=== PATIENT | female | born 1930 | race Caucasian/White ===

== ENCOUNTER 2020-04-04 15:35 | Emergency (ER) | payer MEDICARE, OTHER ==
--- NOTE | 2020-04-04 16:39 | EDM.PDOC ---
ED HPI GENERAL MEDICAL PROBLEM - General Chief Complaint: Upper Extremity Injury/Pain Stated Complaint: fall Time Seen by Provider: 04/04/20 16:04 Source of Information: Reports: Patient History Limitations: Reports: No Limitations - History of Present Illness INITIAL COMMENTS - FREE TEXT/NARRATIVE: Patient fell at home/backwards. She and son think she hit a small table and pa rt of her recliner on her way to floor. No LOC. Able to get up with help of son. This happened around noon. Was up and moving around after the fall. Ambulated normally per son. Says she had increased discomfort right shoulder. Small bump back of head. Able to move arms while working in kitchen/preparing and eating midday meal. Afterwards she sat on couch. Later got up and walked to her bedroom to lay on the bed for awhile. Later she called for assistance from her son as she couldn't get out of bed by herself due to the discomfort in the right shoulder. History of previous injury to the same shoulder. Has been unable to raise that arm above her shoulder since that time. 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 Denies headache/vision change/facial pain. Able to open and close jaw. No dental injury. No specific neck pain complaint. Has pain and swelling in right shoulder area above clavicular line. Denies new pain in left arm/shoulder/lower extremities. No chest pain/palpitations/SOB/pleuritic pain No nausea/emesis/abdominal pain/bowel changes No changes. No change in speech/alertness. No focal weakness or other neuro changes reported. - Related Data Allergies Allergy/AdvReac Type Severity Reaction Status Date / Time No Known Allergies Allergy Verified 04/04/20 15:37 Home Meds: Home Meds Insulin Aspart [Novolog Flexpen] 10 units SUBCUT TID 08/03/16 [History] Insulin Detemir [Levemir] 20 unit SUBCUT BEDTIME 08/03/16 [History] Acetaminophen [Tylenol Arthritis] 1 tab PO BID 04/04/20 [History] Aspirin [Halfprin] 1 tab PO DAILY 04/04/20 [History] Cholecalciferol (Vitamin D3) [Vitamin D3] 1 cap PO DAILY 04/04/20 [History] Docusate Sodium [Colace] 1 cap PO DAILY 04/04/20 [History] FLUoxetine HCl [Prozac] 1 cap PO DAILY 04/04/20 [History] Fenofibrate Nanocrystallized [Fenofibrate] 1 tab PO DAILY 04/04/20 [History] Multivitamin 1 tab PO DAILY 04/04/20 [History] Nitroglycerin 1 tab SL ASDIRECTED 04/04/20 [History] Omeprazole 1 tab PO DAILY 04/04/20 [History] Propranolol [Inderal LA] 1 cap PO DAILY 04/04/20 [History] Vit A/Vit C/Vit E/Zinc/Copper [Preservision] 1 tab PO BID 04/04/20 [History] hydroCHLOROthiazide [Hydrochlorothiazide] 1 tab PO DAILY 04/04/20 [History] lisinopriL [Lisinopril] 1 tab PO BID 04/04/20 [History] Past Medical History HEENT History: Reports: Cataract, Impaired Vision Other HEENT History: Wears glassess Cardiovascular History: Reports: Heart Murmur, Other (See Below) Other Cardiovascular History: NEYMAR valve Gastrointestinal History: Reports: Cholelithiasis, GERD Genitourinary History: Reports: Urinary Incontinence 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: Musculoskeletal History: Reports: Arthritis, Back Pain, Chronic, Osteoporosis Endocrine/Metabolic History: Reports: IDDM - Past Surgical History HEENT Surgical History: Reports: Cataract Surgery Cardiovascular Surgical History: Reports: Coronary Artery Stent, Valve Replacement GI Surgical History: Reports: Appendectomy, Cholecystectomy Musculoskeletal Surgical History: Reports: Hip Replacement, Knee Replacement Social & Family History - Caffeine Use Caffeine Use: Reports: Coffee Review of Systems - Review of Systems Review Of Systems: See Below Constitutional: Reports: No Symptoms Eyes: Denies: Pain, Vision Change Ears: Reports: No Symptoms Nose: Reports: No Symptoms Mouth/Throat: Reports: No Symptoms Respiratory: Reports: No Symptoms Cardiovascular: Reports: No Symptoms. Denies: Chest Pain GI/Abdominal: Reports: No Symptoms Genitourinary: Reports: No Symptoms Musculoskeletal: Reports: Shoulder Pain Skin: Reports: Bruising (right clavicular area), Lumps (back of head/small) Neurological: Reports: No Symptoms (no acute changes from baseline) Psychiatric: Reports: No Symptoms ED EXAM, GENERAL - Physical Exam Exam: See Below Exam Limited By: No Limitations General Appearance: Alert, No Apparent Distress, Obese Eye Exam: Bilateral Eye: EOMI, PERRL Ears: Normal External Exam, Normal Canal, Hearing Grossly Normal Nose: No: Nasal Deformity, Nasal Swelling, Nasal Drainage Throat/Mouth: Normal Lips, Normal Voice, No Airway Compromise Head: Other (small bump back of head). No: Facial Swelling, Facial Tenderness, Sinus Tenderness Neck: Normal Inspection, Supple, Non-Tender, Full Range of Motion Respiratory/Chest: No Respiratory Distress, Lungs Clear, No Accessory Muscle U se, Other (tenderness around clavicle/above clavicle on right) Cardiovascular: Regular Rate, Rhythm, No Murmur GI/Abdominal: Normal Bowel Sounds, Soft, Non-Tender, No Distention (Female) Exam: Deferred Rectal (Female) Exam: Deferred Back Exam: No: CVA Tenderness (L), CVA Tenderness (R), Muscle Spasm, Paraspinal Tenderness, Vertebral Tenderness Extremities: Non-Tender, Normal Capillary Refill, Other (Has some chronic pain limitation with ROM left leg, unable to lift it more than one foot above bed. Able to go through ROM with upper extremities fairly well with anterior and lateral arm raises. ) Neurological: Alert, Oriented, CN II-XII Intact, Normal Cognition, Other (no sensory deficits noted. ) Psychiatric: Normal Affect, Normal Mood Skin Exam: Warm, Dry, Ecchymosis (right clavicular area) Course - Vital Signs Last Recorded V/S: Last Vital Signs Temp 36.9 C 04/04/20 15:44 Pulse 74 04/04/20 15:44 Resp 21 H 04/04/20 15:44 BP 190/60 H 04/04/20 15:44 Pulse Ox 99 04/04/20 15:44 - Orders/Labs/Meds Orders: Active Orders 24 hr Category Date Time Status Cervical Spine wo Cont [CT] Stat Exams 04/04/20 15:50 Taken Head wo Cont [CT] Stat Exams 04/04/20 15:50 Ordered Shoulder Comp Rt [CR] Stat Exams 04/04/20 15:42 Taken Shoulder wo Cont Rt [CT] Stat Exams 04/04/20 16:31 Ordered - Re-Assessments/Exams Free Text/Narrative Re-Assessment/Exam: 04/04/20 17:41 Given patient's age and fall history/hitting furniture with her head and shoulder, CT of head and neck ordered. Patient has history of significant arthritis and CT of neck was felt to be better imaging modality than plain film given the amount of degenerative changes suspected. Plan film of shoulder also ordered. 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 C-spine CT report noted significant multi-level degenerative changes but no acute fracture/injury. Plain film of right shoulder was difficult to assess due to osteoporosis and degenerative changes from previous injury. No obvious fracture noted involving shoulder/fracture. Given the bruising and amount of discomfort pt was having, a CT of the shoulder was ordered to give a better look at the area. A mildly displaced fracture of medial clavicle was identified. They noted she had an abnormal proximal right humerus with multiple adjacent joint bodies/post traumatic changes. Patient was given a sling for comfort. Pain medication was discussed. Son is concerned about using any narcotic medication due to increased fall risk. She does take an arthritis medication TID and will try to use that along with the sling/ice. A single tramadol was given in the ER. If she seems to do well with that and wants additional pain control they can follow up with patients PCP tomorrow. BP improved over time as it was quite elevated upon arrival. Suspect due to pain, son says patient's BP has usually been in good range on her current HTN regimen. Precautions reviewed. To follow up as needed at ER PRN worse and with PCP for ongoing concerns and care. Departure - Departure Time of Disposition: 17:51 Disposition: Home, Self-Care 01 Condition: Good Clinical Impression: Fracture of clavicle Qualifiers: Encounter type: initial encounter Clavicle location: sternal end Fracture type: closed Fracture alignment: nondisplaced Laterality: right Qualified Code(s): S42.017A - Nondisplaced fracture of sternal end of right clavicle, initial encounter for closed fracture Fall at home Qualifiers: Encounter type: initial encounter Qualified Code(s): W19.XXXA - Unspecified fall, initial encounter; Y92.009 - Unspecified place in unspecified non- institutional (private) residence as the place of occurrence of the external cause Head contusion Qualifiers: Encounter type: initial encounter Contusion of head detail: scalp Qualified Code(s): S00.03XA - Contusion of scalp, initial encounter - Discharge Information *PRESCRIPTION DRUG MONITORING PROGRAM REVIEWED*: Not Applicable *COPY OF PRESCRIPTION DRUG MONITORING REPORT IN PATIENT CHEN: Not Applicable Instructions: Clavicle Fracture, [id number] Referrals: Millicent Howard NP [Primary Care Provider] - Forms: ED Department Discharge Additional Instructions: Follow up with your clinic if the Tramadol seems to help/does not have a lot of side effects and you want something stronger for pain issues. Wear sling for comfort. Follow up with your clinic to get rechecked next week. Follow up in ER if you have sudden worsening problems/concerns/changes. Sepsis Event Note (ED) - Evaluation Sepsis Screening Result: No Definite Risk - Focused Exam Vital Signs: Vital Signs Temp Pulse Resp BP Pulse Ox 04/04/20 15:44 36.9 C 74 21 H 190/60 H 99 - My Orders Last 24 Hours: My Active Orders 04/04/20 15:42 Shoulder Comp Rt [CR] Stat 04/04/20 15:50 Cervical Spine wo Cont [CT] Stat Head wo Cont [CT] Stat 04/04/20 16:31 Shoulder wo Cont Rt [CT] Stat - Assessment/Plan Last 24 Hours: My Active Orders 04/04/20 15:42 Shoulder Comp Rt [CR] Stat 04/04/20 15:50 Cervical Spine wo Cont [CT] Stat Head wo Cont [CT] Stat 04/04/20 16:31 Shoulder wo Cont Rt [CT] Stat
[2020-04-04] MEDS: traMADol 50 MG Tab PO ONE (17:47)
[2020-04-04 18:24] VITALS: BP 167/45; PULSE 62
== END 2020-04-04 18:03 | disposition home or self-care (01) ==
LOC: LL.ED 15:35
DX: S42.017A Nondisplaced fracture of sternal end of right clavicle, initial encounter for closed fracture (principal); S00.03XA Contusion of scalp, initial encounter; K21.9 Gastro-esophageal reflux disease without esophagitis; E11.9 Type 2 diabetes mellitus without complications; E66.9 Obesity, unspecified; Z79.4 Long term (current) use of insulin; Z79.82 Long term (current) use of aspirin; Z90.49 Acquired absence of other specified parts of digestive tract; Z79.899 Other long term (current) drug therapy; W01.198A Fall on same level from slipping, tripping and stumbling with subsequent striking against other object, initial encounter
CPT/HCPCS: 70450; 72125; 73030-RT; 73200-RT; 99284-25; A9270-GY

== ENCOUNTER 2020-09-20 12:17 | Inpatient (IN) | payer MEDICARE, OTHER ==
[2020-09-20] MEDS ORDERED: oxyCODONE 5 MG Tab PO PRN (16:12)
[2020-09-20] MEDS ORDERED: Nitroglycerin 0.4 MG Tab.SL SL PRN (16:15)
--- NOTE | 2020-09-20 16:22 | PCM.HP.2 ---
H&P History of Present Illness - General Date of Service: 09/20/20 Admit Problem/Dx: Admission Diagnosis/Problem Admission Diagnosis/Problem History of arthroplasty of left hip Source of Information: Patient, Family, Old Records History Limitations: Reports: Other (Patient has some mild/moderate cognitive impairment.) - History of Present Illness Initial Comments - Free Text/Narative: Patient admitted to [facility] for PT/OT. Transferred from [facility] after undergoing left total hip revision surgery. - Related Data Allergies/Adverse Reactions: Allergies Allergy/AdvReac Type Severity Reaction Status Date / Time [id number] Reductase Allergy Cannot Verified 09/20/20 13:15 Inhibitor Remember Home Medications: Home Meds Insulin Aspart [Novolog Flexpen] 10 units SUBCUT TID 08/03/16 [History] Insulin Detemir [Levemir] 20 unit SUBCUT BEDTIME 08/03/16 [History] Acetaminophen [Tylenol Arthritis] 1 tab PO Q6H PRN 04/04/20 [History] Cholecalciferol (Vitamin D3) [Vitamin D3] 1 cap PO DAILY 04/04/20 [History] FLUoxetine HCl [Prozac] 1 cap PO DAILY 04/04/20 [History] Fenofibrate Nanocrystallized [Fenofibrate] 1 tab PO BEDTIME 04/04/20 [History] Nitroglycerin 1 tab SL ASDIRECTED 04/04/20 [History] Omeprazole 1 tab PO DAILY 04/04/20 [History] Propranolol [Inderal LA] 1 cap PO DAILY 04/04/20 [History] hydroCHLOROthiazide [Hydrochlorothiazide] 1 tab PO DAILY 04/04/20 [History] lisinopriL [Lisinopril] 2 tab PO DAILY 04/04/20 [History] Aspirin 81 mg PO BID 09/20/20 [History] Cyanocobalamin (Vitamin B-12) [Vitamin B-12] 100 mcg PO DAILY 09/20/20 [History] Lutein/Minerals/Vit A,C & E [Ocuvite] 1 tab PO DAILY 09/20/20 [History] Multivit-Min/FA/Lycopene/Lut [Abc Plus Tablet] 1 each PO DAILY 09/20/20 [History] Oxybutynin Chloride [Ditropan Xl] 10 mg PO DAILY 09/20/20 [History] Sennosides/Docusate Sodium [Senna-Docusate Sodium Tablet] 2 each PO DAILY 09/20/20 [History] oxyCODONE 5 mg PO Q3H PRN 09/20/20 [History] Past Medical History HEENT History: Reports: Cataract, Impaired Vision Other HEENT History: Wears glassess Cardiovascular History: Reports: CAD (LAD stent 2016), Heart Murmur, 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), Hypertension, Other (See Below) Other Cardiovascular History: NEYMAR valve Gastrointestinal History: Reports: Cholelithiasis, GERD Genitourinary History: Reports: Retention, Urinary, Urinary Incontinence 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: Musculoskeletal History: Reports: Arthritis, Back Pain, Chronic, Osteoporosis Psychiatric History: Reports: Dementia Endocrine/Metabolic History: Reports: IDDM Hematologic History: Reports: Anemia - Past Surgical History HEENT Surgical History: Reports: Cataract Surgery Cardiovascular Surgical History: Reports: Coronary Artery Stent, Valve Replacement GI Surgical History: Reports: Appendectomy, Cholecystectomy Musculoskeletal Surgical History: Reports: Hip Replacement, Knee Replacement Social & Family History - Caffeine Use Caffeine Use: Reports: Coffee H&P Review of Systems - Review of Systems: Review Of Systems: See Below General: Reports: No Symptoms HEENT: Reports: Glasses, Other (Still has scratchy dry throat from intubation per self report) Pulmonary: Reports: No Symptoms Cardiovascular: Reports: No Symptoms Gastrointestinal: Reports: No Symptoms Genitourinary: Reports: Incontinence, Retention (by history) Musculoskeletal: Reports: Other (recent left hip revision/pain is improving since procedure 4 days ago. No acute changes from baseline otherwise) Psychiatric: Reports: Confusion Neurological: Reports: Confusion (patient is aware that she becomes confused), Difficulty Walking (recent left hip surgery) Hematologic/Lymphatic: Reports: Anemia (blood loss from recent surgery) Exam - Exam Exam: See Below - Vital Signs Vital Signs: Last Vital Signs Temp 36.7 C 09/20/20 15:01 Pulse 70 09/20/20 15:01 Resp 20 09/20/20 15:01 BP 145/55 H 09/20/20 15:01 Pulse Ox 96 09/20/20 15:01 Weight: 74.208 kg - Exam General: Alert, Oriented, Cooperative HEENT: Conjunctiva Clear, EACs Clear, EOMI, Hearing Intact, Mucosa Moist & [place], Pupils Equal, Pupils Reactive Neck: Supple, Trachea Midline Lungs: Clear to Auscultation, Normal Respiratory Effort Cardiovascular: Regular Rate, Regular Rhythm GI/Abdominal Exam: Normal Bowel Sounds, Soft, Non-Tender, No Distention, No Abnormal Bruit (Female) Exam: Deferred Rectal (Female) Exam: Deferred Back Exam: No: CVA Tenderness (L), CVA Tenderness (R), Muscle Spasm Extremities: Non-Tender, No Pedal Edema, Normal Capillary Refill, Other (some swelling noted left hip/thigh). No: Kourtney's Sign Peripheral Pulses: 2+: Radial (L), Radial (R) Skin: Warm, Dry, Incision (healing incision from left hip surgery) Psychiatric: Alert, Normal Affect, Normal Mood, Other (Knows she is in [place], that she had the recent surgery, that it is 2020, and that [place] is president.). No: Hallucinations Sepsis Event Note - Evaluation Sepsis Screening Result: No Definite Risk - Focused Exam Vital Signs: Vital Signs Temp Pulse Resp BP Pulse Ox 09/20/20 15:01 36.7 C 70 20 145/55 H 96 - Problem List (1) S/P total hip arthroplasty SNOMED Code(s): 064651086051, 419326944892 ICD Code: Z96.649 - PRESENCE OF UNSPECIFIED ARTIFICIAL HIP JOINT Status: Acute Priority: High Current Visit: Yes Onset Date: 09/16/20 Problem Details: Revision of left hip arthroplasty performed at [facility] in [place]. Doing well. Here for PT/OT (2) Cognitive impairment SNOMED Code(s): 731997598 ICD Code: R41.89 - OTH SYMPTOMS AND SIGNS W COGNITIVE FUNCTIONS AND AWARENESS Status: Chronic Priority: Medium Current Visit: Yes Problem Details: Recent worsening s/p surgery/anesthesia/hospital stay. Cognitive testing reqested for next week. Lives at home with son. He reports that she has been having issues for a few years and has noticed worsening. (3) Comfort measures only status SNOMED Code(s): 13169774640325 ICD Code: Z51.5 - ENCOUNTER FOR PALLIATIVE CARE Status: Chronic Priority: High Current Visit: No Problem Details: Patient and son in agreement today for DNR/DNI code status. (4) IDDM (insulin dependent diabetes mellitus) SNOMED Code(s): 74489780 ICD Code: [id number] - Status: Chronic Priority: Low Current Visit: Yes Problem Details: Accuchecks/observe trends (5) CAD (coronary artery disease) SNOMED Code(s): 20879859 ICD Code: I25.10 - ATHSCL HEART DISEASE OF [place] CORONARY ARTERY W/O ANG PCTRS Status: Chronic Priority: Low Current Visit: No Problem Details: Hx LAD stent 2017. Has been stable Qualifiers: Coronary Disease-Associated Artery/Lesion type: unspecified vessel or lesion type [place] vs. transplanted heart: [place] heart Associated angina: angina presence unspecified Qualified Code(s): I25.10 - Atherosclerotic heart disease of [place] coronary artery without angina pectoris (6) HTN (hypertension) SNOMED Code(s): 21378759 ICD Code: I10 - ESSENTIAL (PRIMARY) HYPERTENSION Status: Chronic Priority: Low Current Visit: Yes Problem Details: has been stable. Observe trends Qualifiers: Hypertension type: essential hypertension Qualified Code(s): I10 - Essential (primary) hypertension (7) GERD (gastroesophageal reflux disease) SNOMED Code(s): 350993937 ICD Code: K21.9 - GASTRO-ESOPHAGEAL REFLUX DISEASE WITHOUT ESOPHAGITIS Status: Chronic Priority: Low Current Visit: No Problem Details: Has been stable Qualifiers: Esophagitis presence: esophagitis presence not specified Qualified Code(s): K21.9 - Gastro-esophageal reflux disease without esophagitis (8) Urinary retention SNOMED Code(s): 635240479 ICD Code: R33.9 - RETENTION OF URINE, UNSPECIFIED Status: Chronic Priority: Low Current Visit: No Problem Details: Hx of problems with retention/incontinence. Has been stable per history. (9) Anemia SNOMED Code(s): 459292615 ICD Code: D64.9 - ANEMIA, UNSPECIFIED Status: Acute Priority: Medium Current Visit: Yes Problem Details: attributed to blood loss associated with hip surgery. Received transfusion yesterday. Recheck labs Wednesday morning. Qualifiers: Anemia type: other cause (10) Congestive heart failure (CHF) SNOMED Code(s): 46905587 ICD Code: I50.9 - HEART FAILURE, UNSPECIFIED Status: Acute Priority: Low Current Visit: No Problem Details: has been stable. History of valve replacement/aortic stenosis Qualifiers: Heart failure type: unspecified Heart failure chronicity: unspecified Qualified Code(s): I50.9 - Heart failure, unspecified Problem List Initiated/Reviewed/Updated: Yes Orders Last 24hrs: Active Orders 24 hr Category Date Time Status Patient Status [ADT] Routine ADT 09/20/20 16:06 Ordered Accu Check [Blood Glucose Check, Bedside] [RC] Care 09/20/20 16:14 Ordered QIDACANDBED Height and Weight [RC] UPON Care 09/20/20 16:06 Ordered Oxygen Therapy [RC] PRN Care 09/20/20 16:06 Ordered Pulse Oximetry [RC] PRN Care 09/20/20 16:10 Ordered Up With Assistance [RC] ASDIRECTED Care 09/20/20 16:06 Ordered VTE/DVT Education [RC] PER UNIT ROUTINE Care 09/20/20 16:06 Ordered Vital Signs [RC] Q4H Care 09/20/20 16:06 Ordered Consult to Case Management/Direct Service Provider [CONS] Cons 09/20/20 16:06 Ordered Routine OT Evaluation and Treatment [CONS] Routine Cons 09/20/20 16:06 Ordered PT Evaluation and Treatment [CONS] Routine Cons 09/20/20 16:06 Ordered CBC WITH AUTO DIFF [HEME] AM Lab 09/23/20 05:15 Ordered COMPREHENSIVE METABOLIC PN,CMP [CHEM] AM Lab 09/23/20 05:11 Ordered Acetaminophen [Tylenol Arthritis Pain] Med 09/20/20 16:12 Ordered 650 mg PO Q6H PRN Aspirin Med 09/20/20 18:00 Ordered 81 mg PO BID Cholecalciferol (Vitamin D3) [Vitamin D3] Med 09/21/20 08:00 Ordered 1 cap PO DAILY Cyanocobalamin (Vitamin B12) [Vitamin B12] Med 09/21/20 08:00 Ordered 100 mcg PO DAILY Docusate Sodium/Sennosides [Senna Plus] Med 09/21/20 08:00 Ordered 2 each PO DAILY FLUoxetine [PROzac] Med 09/21/20 08:00 Ordered 1 cap PO DAILY Fenofibrate Nanocrystallized [Fenofibrate] Med 09/20/20 20:00 Ordered 1 tab PO BEDTIME Insulin Aspart [Novolog Flexpen] Med 09/20/20 18:00 Ordered 10 units SUBCUT TID Insulin Detemir Med 09/20/20 20:00 Ordered 20 unit SUBCUT BEDTIME Lutein/Minerals/Vit A,C & E [Ocuvite] Med 09/21/20 08:00 Ordered 1 tab PO DAILY Multivit-Min/FA/Lycopene/Lut [Abc Plus Tablet] Med 09/21/20 08:00 Ordered 1 each PO DAILY Nitroglycerin [Nitrostat] Med 09/20/20 16:15 Ordered 0.4 mg SL ASDIRECTED Omeprazole [Omeprazole] Med 09/21/20 08:00 Ordered 1 tab PO DAILY Oxybutynin Chloride [Ditropan Xl] Med 09/21/20 08:00 Ordered 10 mg PO DAILY Propranolol [Inderal LA] Med 09/21/20 08:00 Ordered 1 cap PO DAILY hydroCHLOROthiazide Med 09/21/20 08:00 Ordered 25 mg PO DAILY lisinopriL [Prinivil] Med 09/21/20 08:00 Ordered 40 mg PO DAILY oxyCODONE Med 09/20/20 16:12 Ordered 5 mg PO Q3H PRN Resuscitation Status Routine Resus Stat 09/20/20 16:06 Ordered Medication Orders Acetaminophen (Tylenol Arthritis Pain) 650 mg PO Q6H PRN PRN Reason: Pain Aspirin (Aspirin) 81 mg PO BID [facility] Cyanocobalamin (Vitamin B12) 100 mcg PO DAILY [facility] Fluoxetine HCl (Prozac) mg PO DAILY [facility] Hydrochlorothiazide (Hydrochlorothiazide) 25 mg PO DAILY [facility] Lisinopril (Prinivil) 40 mg PO DAILY [facility] Nitroglycerin (Nitrostat) 0.4 mg SL ASDIRECTED [facility] Non-Formulary Medication (Cholecalciferol (Vitamin D3) [Vitamin D3]) 1 cap PO DAILY [facility] Non-Formulary Medication (Fenofibrate Nanocrystallized [Fenofibrate]) 1 tab PO BEDTIME [facility] Non-Formulary Medication (Insulin Aspart [Novolog Flexpen]) 10 units SUBCUT TID [facility] Non-Formulary Medication (Insulin Detemir) 20 unit SUBCUT BEDTIME [facility] Non-Formulary Medication (Lutein/Minerals/Vit A,C & E [Ocuvite]) 1 tab PO DAILY [facility] Non-Formulary Medication (Multivit-Min/Fa/Lycopene/Lut [Abc Plus Tablet]) 1 each PO DAILY [facility] Non-Formulary Medication (Omeprazole [Omeprazole]) 1 tab PO DAILY [facility] Non-Formulary Medication (Oxybutynin Chloride [Ditropan Xl]) 10 mg PO DAILY [facility] Oxycodone HCl (Oxycodone) 5 mg PO Q3H PRN PRN Reason: Pain Propranolol HCl (Inderal La) mg PO DAILY HERBERT Senna/Docusate Sodium (Senna Plus) tab PO DAILY [facility] Assessment/Plan Comment:: as above. PT/OT did initial evaluation of patient today and feels that overall she is doing well. May need as little as 2-3 weeks stay on Swing [facility]. Main concern is that she be able to climb 9 steps to get into her home once discharged. - Mortality Measure Prognosis:: Good
[2020-09-20] MEDS: Aspirin 81 MG Tab.Chew PO SCH (17:43)
[2020-09-20] MEDS ORDERED: Insulin Lispro 100 Units/ML 3 ML Vial SUBCUT SCH (18:00)
[2020-09-20] MEDS ORDERED: Aspirin 81 MG Tab.Chew PO SCH (18:00)
[2020-09-20] MEDS: NOVOLOG INSULIN SUBCUT SCH (18:18)
[2020-09-20] MEDS ORDERED: Insulin Glarg,Human.Rec.Analog 100 Unit/ML SUBCUT SCH (20:00)
[2020-09-20] MEDS: Fenofibrate,Micronized 134 MG Cap PO SCH (20:23)
[2020-09-20] MEDS: LEVEMIR INSULIN SUBCUT SCH (20:24)
[2020-09-20] MEDS: Acetaminophen 650 MG Tab.ER PO PRN (20:37)
[2020-09-21] MEDS: Acetaminophen 650 MG Tab.ER PO PRN ×2 (05:12→20:23)
[2020-09-21] MEDS: Oxybutynin 5 MG Tab.ER PO SCH (07:39)
[2020-09-21] MEDS: Multivitamin Tab PO SCH (07:39)
[2020-09-21] MEDS: Hydrochlorothiazide 25 MG Tab PO SCH (07:40)
[2020-09-21] MEDS: Aspirin 81 MG Tab.Chew PO SCH ×2 (07:40→17:09)
[2020-09-21] MEDS: Propranolol 80 MG Cap.ER PO SCH (07:40)
[2020-09-21] MEDS: Omeprazole 20 MG Cap.CR PO SCH (07:40)
[2020-09-21] MEDS: FLUoxetine 20 MG Cap PO SCH (07:40)
[2020-09-21] MEDS: Lisinopril 20 MG Tab PO SCH (07:40)
[2020-09-21] MEDS: Cyanocobalamin (Vitamin B12) 100 MCG Tab PO SCH (07:40)
[2020-09-21] MEDS: Lutein/Minerals/Vitamin C/Vitamin E Acetate Cap PO SCH (07:40)
[2020-09-21] MEDS: Cholecalciferol (Vitamin D3) 25 MCG Tab PO SCH (07:41)
[2020-09-21] MEDS: NOVOLOG INSULIN SUBCUT SCH ×3 (09:35→17:11)
[2020-09-21] MEDS: Fenofibrate,Micronized 134 MG Cap PO SCH (20:23)
[2020-09-21] MEDS: LEVEMIR INSULIN SUBCUT SCH (20:25)
[2020-09-22] MEDS: Acetaminophen 650 MG Tab.ER PO PRN ×3 (04:25→19:46)
[2020-09-22] MEDS: Cholecalciferol (Vitamin D3) 25 MCG Tab PO SCH (08:35)
[2020-09-22] MEDS: FLUoxetine 20 MG Cap PO SCH (08:36)
[2020-09-22] MEDS: Hydrochlorothiazide 25 MG Tab PO SCH (08:36)
[2020-09-22] MEDS: Lisinopril 20 MG Tab PO SCH (08:36)
[2020-09-22] MEDS: Omeprazole 20 MG Cap.CR PO SCH (08:36)
[2020-09-22] MEDS: Oxybutynin 5 MG Tab.ER PO SCH (08:37)
[2020-09-22] MEDS: Aspirin 81 MG Tab.Chew PO SCH ×2 (08:37→18:12)
[2020-09-22] MEDS: Propranolol 80 MG Cap.ER PO SCH (08:38)
[2020-09-22] MEDS: Cyanocobalamin (Vitamin B12) 100 MCG Tab PO SCH (08:38)
[2020-09-22] MEDS: Multivitamin Tab PO SCH (08:38)
[2020-09-22] MEDS: Lutein/Minerals/Vitamin C/Vitamin E Acetate Cap PO SCH (08:39)
[2020-09-22] MEDS: NOVOLOG INSULIN SUBCUT SCH ×3 (08:41→18:12)
[2020-09-22] MEDS: Fenofibrate,Micronized 134 MG Cap PO SCH (19:45)
[2020-09-22] MEDS: LEVEMIR INSULIN SUBCUT SCH (19:51)
[2020-09-23] MEDS: Multivitamin Tab PO SCH (07:35)
[2020-09-23] MEDS: Cholecalciferol (Vitamin D3) 25 MCG Tab PO SCH (07:35)
[2020-09-23] MEDS: Cyanocobalamin (Vitamin B12) 100 MCG Tab PO SCH (07:35)
[2020-09-23] MEDS: Oxybutynin 5 MG Tab.ER PO SCH (07:35)
[2020-09-23] MEDS: Aspirin 81 MG Tab.Chew PO SCH ×2 (07:35→17:34)
[2020-09-23] MEDS: Omeprazole 20 MG Cap.CR PO SCH (07:36)
[2020-09-23] MEDS: Lutein/Minerals/Vitamin C/Vitamin E Acetate Cap PO SCH ×2 (07:36→17:34)
[2020-09-23] MEDS: Acetaminophen 650 MG Tab.ER PO PRN ×2 (07:36→19:35)
[2020-09-23] MEDS: FLUoxetine 20 MG Cap PO SCH (07:36)
[2020-09-23] MEDS: Propranolol 80 MG Cap.ER PO SCH (07:37)
[2020-09-23] MEDS: Lisinopril 20 MG Tab PO SCH (07:37)
[2020-09-23] MEDS: Hydrochlorothiazide 25 MG Tab PO SCH (07:37)
[2020-09-23] MEDS: NOVOLOG INSULIN SUBCUT SCH ×2 (07:39→12:07)
--- OUTSIDE RECORDS SUMMARY | 2020-09-23 07:58 | XMSREPORT ---
:1930 Author Organization [facility] Address [address] [place] [address] Care Team Providers Name Role Phone GER Howard Primary Care Provider GER Howard Attributed Provider GER Howard Home Health Attending Health Unavailable Reason for Visit Reason Comments Auth/Cert (Routine) Status Reason Specialty Diagnoses / Referred By Referred To Procedures Contact Contact Continuity of Care Diagnoses Dislocation of internal left hip prosthesis, initial encounter Kayden Cherry Procedures REVISION TOTAL HIP ARTHROPLASTY BOTH COMPON[place] [address] [place] [id number] Encounter Details Date Type Department Care Team Description 09/16/2020 - Hospital Encounter [facility] Dilip S/Matt revi phill of 09/20/2020 ALBA ISAURA Babb MD total hip [address] [place] [id number] [place], [place] [phone] [id number] [phone] Allergies Active Allergy Reactions Severity Noted Date Comments Hmg-Coa-R Inhibitors Statin Contraindication - 020 Intolerance documented as of this encounter (statuses as of 09/20/2020) Medications Medication Sig Dispensed Refills Start Date End Date Status Multiple Take 1 tablet by 0 Act cole Vitamins-Minerals (ABC mouth 1 time per PLUS PO) day nitroglycerin Dissolve 1 25 tablet 0 08/13/2016 Acti ve (NITROSTAT) 0.4 mg tablet (0.4 mg sublingual total) under the tabletIndications: tongue Every 5 Coronary artery minutes as disease involving needed for chest [place] heart without pain angina pectoris, unspecified vessel or lesion type multivitamin/lutein Take 1 capsule 0 Active (PROSIGHT;OCUVITE-LUTE by mouth 2 times IN) capsule a day lisinopril (PRINIVIL, Take 1 tablet 90 tablet 4 01/11/2020 Active ZESTRIL) 40 mg (40 mg) by mouth tabletIndications: 1 time per day Essential hypertension Additional Information Patient taking differently: 40 mg Oral Every morning, Informant: Child, Reported on 09/16/2020 9:49 AM omeprazole (PRILOSEC) Take 20 mg by mouth 1 0 Active 20 mg capsule time per day One Touch Ultra test USE TO TEST BLOOD SUGAR 200 each 1 05/27 Active stripIndications: Type DIRECTED TWICE A DAY 2 diabetes mellitus without complication, with long-term current use of insulin ([facility]) LEVEMIR FLEXTOUCH INJECT 20 UNITS 15 mL 3 08/06/202011/04 Active subcutaneous injection SUBCUTANEOUSLY EVERY (pen)Indications: Type NIGHT AT BEDTIME 2 diabetes mellitus without complication, with long-term current use of insulin ([facility]) Additional Information Patient taking differently: 15 Units Subcutaneous Bedtime, Informant: Child, Reported on 09/09/2020 1:08 PM cyanocobalamin, vitamin B-12, Take 100 mcg by mouth 1 0 Active 100 mcg tablet time per day hydroCHLOROthiazide 25 mg Take 25 mg by mouth 1 0 Active tabletIndications: Essential time a day in the hypertension morning FLUoxetine (PROZAC) 20 mg Take 1 capsule (20 mg) 0 0 08/22/2020 Active capsuleIndications: Mild by mouth 1 time per day 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 fenofibrate (TRICOR) 145 mg Take 1 tablet (145 mg) 90 tablet 0 09/02/2020 Active tabletIndications: Type 2 by mouth every night at diabetes mellitus without bedtime complication, with long-term current use of insulin ([facility]) oxybutynin (DITROPAN-XL) 10 mg Take 1 tablet (10 mg) by 14 tablet 0 09/11/2020 Active SR tablet (24 hr)Indications: mouth 1 time per day Stress incontinence of urine Additional Information Patient taking differently: 10 mg Oral Bedtime, Informant: Child, Reported on 09/16/2020 9:49 AM acetaminophen (TYLENOL Take 1 tablet 0 09/20/2020 Active ARTHRITIS) 650 mg CR (650 mg) by mouth tabletIndications: every 6 hours as Polyarthralgia, S/P needed for mild revision of total hip pain (fever >99F) aspirin 81 mg chewable Take 1 tablet (81 0 1 11/01 Active tabletIndications: S/P mg) by mouth 021 revision of total hip, times a day BID Failure of left total dosing x 42 days, hip arthroplasty, then resume daily subsequent encounter dosing senna-docusate sodium Take 2 tablets by 0 09/20/2020 Active (SENOKOT-S;PERICOLACE) mouth 1 time a 8.6-50 MG day as needed for tabletIndications: S/P constipation revision of total hip, Failure of left total hip arthroplasty, subsequent encounter oxyCODONE (OXY-IR) 5 mg Take 1 tablet (5 60 tablet 0 1 Active tablet (immediate mg) by mouth release)Indications: Every 3 hours as S/P revision of total needed (acute hip, Failure of left post-op left hip total hip arthroplasty, pain) subsequent encounter aspirin 81 mg enteric Take 81 mg by 0 08/27 6 Discontinued coated tablet mouth 1 time ( Stop Taking at day in the Discharge ) morning amoxicillin (AMOXIL) Take 4 tablets 4 tablet 1 09/23/2017 Discontinued 500 mg (2,000 mg) by (Stop Taking at tabletIndications: S/p mouth 1 time when Discharge) TAVR (transcatheter needed for other aortic valve (Specify) (30-60 replacement), minutes prior to bioprosthetic dental procedure.) for up to 1 dose acetaminophen (TYLENOL Take 650 mg by 0 Discontinued ARTHRITIS) 650 mg CR mouth 3 times (Reorder) tabletIndications: day Polyarthralgia oxybutynin Take 1 tablet (10 90 tablet 3 04/24/202009/11 Discontinued (DITROPAN-XL) 10 mg SR mg) by mouth 021 (Reorder) tablet (24 time per day hr)Indications: Stress incontinence of urine senna (SENOKOT) 8.6 MG Take 8.6 mg by 0 Discontinued TABS mouth at bedtime (St op Taking at as needed for Discha rge) constipation documented as of this encounter (statuses as of 09/20/2020) Active Problems Problem Noted Date 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 Closed left hip fracture 08/20/2020 Mass of psoas muscle 08/20/2020 Closed dislocation of left hip 08/20/2020 Coronary artery disease involving [place] coronary parminder ry of [place] heart 09/22/2018 without angina pectoris Dyslipidemia 09/22/2018 S/p TAVR (transcatheter aortic valve replacement), bio prosthetic 09/10/2016 Essential hypertension 04/10/2015 Severe aortic stenosis 08/22/2014 DM (diabetes mellitus) 11/16/2012 Diabetes mellitus documented as of this encounter (statuses as of 09/20/2020) Resolved Problems Problem Noted Date Resolved Date Hip dislocation, left 08/20/2020 08/28/2020 Encounter to establish care 05/16/2019 09/06/2020 Last Assessment & Plan: Patient comes in for medication refills and to establish care long term care phlebotomist current use of anticoagulant therapy 09/10/2016 11/27/2016 Aortic stenosis 09/08/2016 05/16/2019 Aortic stenosis, severe 11/16/2012 05/16/2019 documented as of this encounter (statuses as of 09/20/2020) Immunizations Name Administration Dates Next Due Influenza Trivalent w/preserv 06/25/2003 FLU VACCINE HIGH DOSE 65YR+(Fluzone) 04/23/2020, 05/15/2019, 05/15/2019, 04/20/2018, 05/07/2015 Influenza Vaccine,unspecified 04/29/2017, 04/30/2016, 2013, 05/05/2013, 05/12/2012, 05/19/2011, 05/01/2010, 05/30/2008, 05/19/2006, 06/08/2005, 06/18/2004 Moderna COVID-19 Vaccine 09/02/2020 Pneumococcal Conj PCV13 04/29/2017 Pneumococcal Polysaccharide PPSV23 06/07/2014 TDAP 04/29/2017 Zoster Live(Zostavax) 05/19/2011 documented as of this encounter Social History Tobacco Use Types Packs/Day Years Used Date Never Smoker Smokeless Tobacco: Never Used Alcohol Use Drinks/Week oz/Week Comments No Physical Activity Answer Date Recorded On average, how many days per week do you engage in moderate 0 days 05/15/2019 to strenuous exercise (like walking fast, running, jogging, dancing, swimming, biking, or other activities that cause a light or heavy sweat)? On average, how many minutes do you engage in exercise at No t asked this level? Food Insecurity Answer Date Recorded Within the past 12 months, you worried that your food would Never true 04/09/2020 run out before you got money to buy more. Within the past 12 months, the food you bought just didn't N ever true 04/09/2020 last and you didn't have money to get more. Sex Assigned at Date Recorded Not on file documented as of this encounter Last Filed Vital Signs Vital Sign Reading Time Taken Comments Blood Pressure 161/57 09/20/2020 12:22 PM [employer] Pulse 64 09/20/2020 12:22 PM [employer] Temperature 36.8 C (98.3 F) 09/20/2020 12:22 PM [employer] Respiratory Rate 16 09/20/2020 12:22 PM [employer] Oxygen Saturation 95% 09/20/2020 12:22 PM [employer] Inhaled Oxygen Concentration - - Weight 68.4 kg (150 lb 12.7 oz) 09/16/2020 10:18 AM [employer] Height 165.1 cm (5' 5") 09/16/2020 9:24 AM [employer] Body Mass Index 25.09 09/16/2020 9:24 AM [employer] documented in this encounter Functional Status Functional Status Response Date of Assessment Is the person deaf or does he/she have serious difficulty No 09/04/2016 hearing? Is this person blind or does he/she have difficulty No 09/04/2016 seeing even when wearing glasses? Do you have difficulty with walking, balance, climbing Yes 05/23/2020 stairs, or had a fall in the last 3 months? Does this person have difficulty dressing or bathing? Yes 08/23/2020 Because of a physical, mental, or emotional condition; No 09/04/2016 does this person have difficulty doing errands alone such as visiting a doctor's office or shopping? Cognitive Status Response Date of Assessment Because of a physical, mental, or emotional condition; No 09/04/2016 does this person have serious difficulty concentrating, remembering, or making decisions? documented as of this encounter Discharge Summaries Not on filedocumented in this encounter Discharge Instructions InstructionsBiYobani hung PA - 09/16/2020Total Hip post op Activity ? Walk with walker/crutches full weight bearing as instructed by Physical Therapy. ? Continue exercises you have been taught. ? Sit in a chair that is safe for your hip. Higher the firmer encouraged. ? Do not drive until your Surgeon informs you that you can. ? Lie down 2 times a day in bed for 45-60 minutes. You may elevate your feet on pillows. If swelling occurs lie down in bed 3-4 times a day. ? Ice for hip as needed. ? LA hose on during day and off at bedtime for 4-6 weeks or as instructed by Orthopedic Surgeon. ? Follow hip precautions for 12 weeks. Dressing instructions: Cover dressing with PressNSeal for 14 days-for shower ? Leave hip dressing intact and dry for 14 days after surgery, then okay to remove & discard dressing. ? After dressing is removed, okay to leave hip incision uncovered & okay to shower without covering the incision. ? No lotions, creams, or ointments over the incision until fully healed. ? Soap & water over the incision is okay. ? Leave the skin adhesive mesh on the hip intact for up to 2 weeks. ? When it begins to peel, you may attempt to peel it off completely, or trim the peeling edges with scissors. documented in this encounter Medications at Time of Discharge Medication Sig Dispensed Refills Start Date End Date acetaminophen (TYLENOL Take 1 tablet (650 0 09/20 ARTHRITIS) 650 mg CR mg) by mouth every 6 tabletIndications: hours as needed for Polyarthralgia, S/P mild pain (fever revision of total hip >99F) aspirin 81 mg chewable Take 1 tablet (81 0 202011/01/2020 tabletIndications: S/P mg) by mouth 2 times revision of total hip, a day BID dosing x Failure of left total hip 42 days, then resume arthroplasty, subsequent daily dosing encounter senna-docusate sodium Take 2 tablets by 0 021 (SENOKOT-S;PERICOLACE) mouth 1 time a day 8.6-50 MG as needed for tabletIndications: S/P constipation revision of total hip, Failure of left total hip arthroplasty, subsequent encounter oxyCODONE (OXY-IR) 5 mg Take 1 tablet (5 mg) 60 tablet 0 tablet (immediate by mouth Every 3 release)Indications: S/P hours as needed revision of total hip, (acute post-op left Failure of left total hip hip pain) arthroplasty, subsequent encounter oxybutynin (DITROPAN-XL) Take 1 tablet (10 14 tablet 0 08/26 10 mg SR tablet (24 mg) by mouth 1 time hr)Indications: Stress per day incontinence of urine fenofibrate (TRICOR) 145 Take 1 tablet (145 90 tablet 0 02/2021 mg tabletIndications: Type mg) by mouth every 2 diabetes mellitus night at bedtime without complication, with long-term current use of insulin (HCC) vitamin D3, Take 25 mcg by mouth 0 cholecalciferol, 25 mcg 1 time per day. (1000 unit) tablet hydroCHLOROthiazide 25 mg Take 25 mg by mouth 0 0 08/22/2020 tabletIndications: 1 time a day in the Essential hypertension morning FLUoxetine (PROZAC) 20 mg Take 1 capsule (20 0 capsuleIndications: Mild mg) by mouth 1 time episode of recurrent major per day depressive disorder (HCC) insulin aspart (NOVOLOG Inject 10 Units 0 021 FLEXPEN) subcutaneous subcutaneously 3 injection times a day with (pen)Indications: Type 2 meals diabetes mellitus without complication, with long-term current use of insulin ([facility]) propranolol (INDERAL LA) Take 1 capsule (80 0 80 mg extended release mg) by mouth 1 time capsuleIndications: per day Essential hypertension cyanocobalamin, vitamin Take 100 mcg by 0 B-12, 100 mcg tablet mouth 1 time per day LEVEMIR FLEXTOUCH INJECT 20 UNITS 15 mL 3 08/06/2020 subcutaneous injection SUBCUTANEOUSLY (pen)Indications: Type 2 EVERY NIGHT AT diabetes mellitus without BEDTIME complication, with long-term current use of insulin ([facility]) One Touch Ultra test USE TO TEST BLOOD 200 each 1 05/27/20 20 stripIndications: Type 2 SUGAR DIRECTED diabetes mellitus without TWICE A DAY complication, with long-term current use of insulin ([facility]) omeprazole (PRILOSEC) 20 Take 20 mg by mouth 0 mg capsule 1 time per day lisinopril (PRINIVIL, Take 1 tablet (40 90 tablet 4 020 01/15/2021 ZESTRIL) 40 mg mg) by mouth 1 time tabletIndications: per day Essential hypertension multivitamin/lutein Take 1 capsule by 0 (PROSIGHT;OCUVITE-LUTEIN) mouth 2 times a day capsule nitroglycerin (NITROSTAT) Dissolve 1 tablet 25 tablet 0 0.4 mg sublingual (0.4 mg total) under tabletIndications: the tongue Every 5 Coronary artery disease minutes as needed involving [place] heart for chest pain without angina pectoris, unspecified vessel or lesion type Multiple Vitamins-Minerals Take 1 tablet by 0 (ABC PLUS PO) mouth 1 time per day documented as of this encounter Progress Notes Safia Patrick MD - 09/20/2020 12:32 PM CST Hospital Progress Note Nara Parada is a 89yr old female who was admitted on 09/16/2020 8:45 AM Assessment / Plan Nara Parada is a 89yr old female with PMH significant for IDDM2, CAD s/p stenting in 2017, hypertension, dyslipidemia, severe s/p TAVR with bioprosthetic valve, and GERD. She is admitted for postoperative care following left revision KELBY for component failure. Underwent this revision surgeryon 09/16/2020 and tolerated well with no complications. Low Hb at 6.4 on 09/18, responded appropriately to transfusion with 2 units PRBCs. Hb stable at 10.4 today. #s/p revision L KELBY 09/16/2020 #postoperative anemia No concern for infection as cause of implant failure. EBL was 200 mL. Hb low yesterday at 6.4, transfused 2 units PRBCs. Recheck 9.1 yesterday, 10.4 today. Hemodynamically stable, no dizziness or shortness of breath. - Pain control with oral/IV medications as needed - DVT ppx per orthopedics - Weight bearing recommendations per orthopedics - Bowel regimen - PT/OT for postop mobilization, discharge planning - Discharge today to [facility] #Dyspnea Patient reports shortness of breath with activity. None at rest. Crackles present in bilateral lung bases on exam yesterday, improved with one-time lasix dose. Urine output appropriate. BMP WNL today. - monitor urine output #Diabetes mellitus type II, insulin dependent Recent HbA1c 6.4. Takes levemir 15 units QHS, 10 units Novolog with meals. Held prior to surgery. Blood glucose readings were high with low dose sliding scale insulin, increased to medium dose and glycemic control has been better. - sliding scale insulin - medium dose - POC glucose testing QID - continue levemir 15 units QHS #CAD s/p LAD stent in 2017 #Severe aortic stenosis s/p TAVR with bioprosthetic valve Follows with cardiology, has been stable. Takes ASA 81 mg daily. -Aspirin 81mg daily -PRN nitroglycerin for chest pain #Hypertension On lisinopril 40mg, propanolol 80mg, and HCTZ 25mg at home. Did have some high BP readings to 180's systolic overnight. No hypotension, no dizziness/presyncope -continue home antihypertensives -monitor BP #GERD -continue omeprazole #urinary retention -continue oxybutinin #dyslipidemia -continue fenofibrate Code status: Full DVT ppx: ASA 81 mg Diet: Regular Disposition: Discharge to [place] today Subjective/ROS Pain has been well controlled. She has been working with therapy and feels like she is making progress. Eating and drinking without difficulty, no issues urinating. Having regular bowel movements. Her son is at bedside, they both feel like she would be ready to discharge today. Denies chest pain, shortness of breath, dizziness, headache, nausea, vomiting. Physical / Results Min/Max 24 hours Vital Signs Temp (12hrs), Av.1 F (36.2 C), Min:96 F (35.6 C), Max:98.3 F (36.8 C) Systolic (12hrs), Av , Min:123 , Max:149 Diastolic (12hrs), Av, Min:48, Max:54 Pulse: 64 O2 Device: Room Air O2 Flow Rate (L/min): 1 l/min Resp: 16 Pain Ratin (out of 10) Weight: 68.4 kg (150 lb 12.7 oz) SpO2: 95 % CBC: 14.0* \\ 10.4* / 400 / 31.9* \\ 09/20 0548 BMP: 140 105 40* / 179* 3.8 23 1.19* \\ 09/20 0548-09/20 1154 General Appearance: adult well appearing female, in no acute distress. Sitting up in chair, conversing appropriately. Neurological: Awake and alert, oriented x4. Cranial nerves grossly intact, no apparent muscular weakness. Moving all extremities equally. Resp: On room air saturating well. Breath sounds clear bilaterally. Heart: Regular rate and rhythm, normal S1/S2 Abdomen: Soft, non distended, no diffuse tenderness. Bowel sounds presnt Extremities: Left hip dressing clean/dry/intact. Mild swelling of proximal thigh. No edema bilaterally, pulses are palpable with good capillary refill Skin: Skin is warm and dry with no obvious lesions Current Facility-Administered Medications: senna-docusate sodium (SENOKOT-S;PERICOLACE) tablet 2 tablet, 2 tablet, Oral, 1 time a day prn,Safia Patrick MD polyethylene glycol (MIRALAX) packet 1 packet, 1 packet, Oral, 1 time a day prn, Nery Sabillon PA insulin detemir (LEVEMIR) SQ injection, 15 Units, Subcutaneous, at bedtime, Safia Patrick MD, 15 Units at 09/19/202206 insulin aspart (NovoLOG) SQ correction scale (Adult), 2-12 Units, Subcutaneous, 3 times a day, Safia Patrick MD, 2 Units at 09/20/20 1201 cyanocobalamin (vitamin B-12) tablet 100 mcg, 100 mcg, Oral, daily, Yobani Mathur PA, 100 mcg at 09/20/20 0929 FLUoxetine (PROzac) capsule 20 mg, 20 mg, Oral, daily, Yobani Mathur PA, 20 mg at 09/20/20 0930 nitroglycerin (NITROSTAT) sublingual tablet 0.4 mg, 0.4 mg, Sublingual, Every 5 minutes prn, Yobani Mathur PA omeprazole (priLOSEC) capsule 20 mg, 20 mg, Oral, daily, Yobani Mathur PA, 20 mg at 09/20/20 0549 oxybutynin (DITROPAN-XL) SR tablet (24 hr) 10 mg, 10 mg, Oral, at bedtime, Yobani Mathur PA, 10 mg at 09/19/20 220 vitamin D3 (cholecalciferol) tablet 25 mcg, 25 mcg, Oral, daily, Yobani Mathur PA, 25 mcg at 09/20/20 0930 aspirin chewable tablet 81 mg, 81 mg, Oral, 2 times a day, Yobani Mathur PA, 81 mg at 09/20/20 0930 morphine preservative free injection solution (conc: 4 mg/mL) 4 mg, 4 mg, IV, Every 1 hour prn,Yobani Mathur PA sodium chloride 0.9% flush (adult) 10 mL, 10 mL, IV, 2 times a day and prn, Yobani Mathur PA, 10 mL at 09/20/20 0930 acetaminophen (TYLENOL) tablet 650 mg, 650 mg, Oral, Every 6 hours, Yobani Mathur PA, 650 mg at 09/20/20 1147 oxyCODONE (OXY-IR) tablet 5-10 mg, 5-10 mg, Oral, Every 3 hours prn, Yobani Mathur PA, 5mg at 09/20/20 0150 magnesium hydroxide (MILK OF MAGNESIA) oral suspension 30 mL, 30 mL, Oral, 2 times a day prn, Yobani Mathur PA bisacodyl (DULCOLAX) enteric coated tablet 5 mg, 5 mg, Oral, 2 times a day prn, Yobani Mathur PA, 5 mg at 09/17/20 2343 bisacodyl (DULCOLAX) suppository 10 mg, 10 mg, Rectal, 1 time a day prn, Yobani Mathur PA ondansetron (ZOFRAN) injection solution 4 mg, 4 mg, IV, Every 4 hours prn, Yobani Mathur PA benzocaine-menthol (CEPACOL w/ BENZOCAINE) lozenge 1 lozenge, 1 lozenge, Mouth/Throat, Every 4 hours prn, Yobani Mathur PA, 1 lozenge at 09/20/20 0938 diphenhydrAMINE (BENADRYL) injection solution 25 mg, 25 mg, IV, Every 4 hours prn, Yobani Mathur PA, 25 mg at 09/19/20 220 fenofibrate (LOFIBRA) tablet 160 mg, 160 mg, Oral, at bedtime, Safia Patrick MD, 160 mg at 09/19/202206 hydroCHLOROthiazide tablet 25 mg, 25 mg, Oral, Every morning, Safia Patrick MD, 25 mg at09/20/20 0930 lisinopril (PRINIVIL, ZESTRIL) tablet 40 mg, 40 mg, Oral, daily, Safia Patrick MD, 40 mgat 09/20/20 09 propranolol (INDERAL LA) extended release capsule 80 mg, 80 mg, Oral, daily, Safia Patrick MD, 80 mg at 09/20/20 09 dextrose 50% IV solution 50 mL, 25 g, IV, PRN per parameter, Safia Patrick MD glucagon for injection 1 mg vial 1 mg, 1 mg, Intramuscular, PRN per parameter, Safia Patrick MD dextrose chewable tablet 16 g, 4 tablet, Oral, PRN per parameter OR carbohydrate 15 g, 15 g, Oral, PRN per parameter, Safia Patrick MD Jillian V Schommer, MD PGY-1, Orthopedic Surgery [employer] Associated attestation - Valente Spence MD - 09/20/2020 12:57 PM [employer] WORK[employer] I discussed the patient with the resident and personally interviewed and examined the patient. I verified in the medical record all resident documentation/findings, including history, physical exam, and medical decision making, and I agree with the resident's documentation. Safia Patrick MD - 09/19/2020 1:45 PM CST Hospital Progress Note Nara Parada is a 89yr old female who was admitted on 09/16/2020 8:45 AM Assessment / Plan Nara Parada is a 89yr old female with PMH significant for IDDM2, CAD s/p stenting in 2017, hypertension, dyslipidemia, severe s/p TAVR with bioprosthetic valve, and GERD. She is admitted for postoperative care following left revision KELBY for component failure. Underwent this revision surgeryon 09/16/2020 and tolerated well with no complications. Low Hb at 6.4 this morning, transfused 2 units PRBCs. #s/p revision L KELBY 09/16/2020 #postoperative anemia No concern for infection as cause of implant failure. EBL was 200 mL. Hb low yesterday at 6.4, transfused 2 units PRBCs. Recheck 9.1. No pallor/dizziness/lightheadedness. - Pain control with oral/IV medications as needed - DVT ppx per orthopedics - Weight bearing recommendations per orthopedics - Bowel regimen - PT/OT for postop mobilization, discharge planning - Recheck Hb in AM - Case management for discharge planning #Dyspnea Patient reports shortness of breath with activity. None at rest. Crackles present in bilateral lung bases. - diuresis with 20mg lasix one time - monitor urine output - BMP in AM #Diabetes mellitus type II, insulin dependent Recent HbA1c 6.4. Takes levemir 15 units QHS, 10 units Novolog with meals. Held prior to surgery. Blood glucose readings were high with low dose sliding scale insulin, increased to medium dose and glycemic control has been better. - sliding scale insulin - medium dose - POC glucose testing QID - continue levemir 15 units QHS #CAD s/p LAD stent in 2017 #Severe aortic stenosis s/p TAVR with bioprosthetic valve Follows with cardiology, has been stable. Takes ASA 81 mg daily. -Aspirin 81mg daily -PRN nitroglycerin for chest pain #Hypertension On lisinopril 40mg, propanolol 80mg, and HCTZ 25mg at home. Did have some high BP readings to 180's systolic overnight. No hypotension, no dizziness/presyncope -restart home antihypertensives today -monitor BP #GERD -continue omeprazole #urinary retention -continue oxybutinin -Bladder scan, straight cath PRN #dyslipidemia -continue fenofibrate Code status: Full DVT ppx: ASA 81 mg Diet: Regular Disposition: Discharge to [place] tomorrow pending medical stability Subjective/ROS Pain has been well-controlled. Transfused 2 units PRBCs yesterday for low Hb, recheck improved to 9.1. She reports some shortness of breath with activity, PT reports she was short of breath during exercises today. No other changes. No chest pain, nausea, vomiting. Having regular BMs, urinating withoutdifficulty. Physical / Results Min/Max 24 hours Vital Signs Temp (12hrs), Av.9 F (36.6 C), Min:97.7 F (36.5 C), Max:98.4 F (36.9 C) Systolic (12hrs), Av , Min:123 , Max:149 Diastolic (12hrs), Av, Min:48, Max:54 Pulse: 67 O2 Device: Room Air O2 Flow Rate (L/min): 1 l/min Resp: 16 Pain Ratin (out of 10) Weight: 68.4 kg (150 lb 12.7 oz) SpO2: 90 % CBC: 11.4* \\ 9.1* / 253 / 27.6* \\ 09/19 0559 BMP: 138 108 43* / 188* 4.1 21 1.22* \\ 09/19 0559-09/19 1109 General Appearance: adult well appearing female, in no acute distress. Sitting up in bed, conversingappropriately. Neurological: Awake and alert, oriented x4. Cranial nerves grossly intact, no apparent muscular weakness. Moving all extremities equally. Resp: On room air saturating well. Crackles at bilateral lung bases Heart: Regular rate and rhythm, normal S1/S2 Abdomen: Soft, non distended, no diffuse tenderness. Bowel sounds presnt Extremities: Left hip dressing clean/dry/intact. Mild swelling of proximal thigh. No edema bilaterally, pulses are palpable with good capillary refill Skin: Skin is warm and dry with no obvious lesions Current Facility-Administered Medications: senna-docusate sodium (SENOKOT-S;PERICOLACE) tablet 2 tablet, 2 tablet, Oral, 1 time a day prn,Safia Patrick MD polyethylene glycol (MIRALAX) packet 1 packet, 1 packet, Oral, 1 time a day prn, Nery Sabillon PA insulin detemir (LEVEMIR) SQ injection, 15 Units, Subcutaneous, at bedtime, Safia Patrick MD, 15 Units at 09/18/20 211 insulin aspart (NovoLOG) SQ correction scale (Adult), 2-12 Units, Subcutaneous, 3 times a day, Safia Patrick MD, 2 Units at 09/19/20 111 cyanocobalamin (vitamin B-12) tablet 100 mcg, 100 mcg, Oral, daily, Yobani Mathur PA, 100 mcg at 09/19/20 08 FLUoxetine (PROzac) capsule 20 mg, 20 mg, Oral, daily, Yobani Mathur PA, 20 mg at 09/19/20 0838 nitroglycerin (NITROSTAT) sublingual tablet 0.4 mg, 0.4 mg, Sublingual, Every 5 minutes prn, Yobani Mathur PA omeprazole (priLOSEC) capsule 20 mg, 20 mg, Oral, daily, Yobani Mathur PA, 20 mg at 09/19/20 06 oxybutynin (DITROPAN-XL) SR tablet (24 hr) 10 mg, 10 mg, Oral, at bedtime, Yobani Mathur PA, 10 mg at 09/18/20 211 vitamin D3 (cholecalciferol) tablet 25 mcg, 25 mcg, Oral, daily, Yobani Mathur PA, 25 mcg at 09/19/20 0838 aspirin chewable tablet 81 mg, 81 mg, Oral, 2 times a day, Yobani Mathur PA, 81 mg at 09/19/20 0838 morphine preservative free injection solution (conc: 4 mg/mL) 4 mg, 4 mg, IV, Every 1 hour prn,Yobani Mathur PA sodium chloride 0.9% flush (adult) 10 mL, 10 mL, IV, 2 times a day and prn, Yobani Mathur PA, 10 mL at 09/19/20 0839 acetaminophen (TYLENOL) tablet 650 mg, 650 mg, Oral, Every 6 hours, Yobani Mathur PA, 650 mg at 09/19/20 1115 oxyCODONE (OXY-IR) tablet 5-10 mg, 5-10 mg, Oral, Every 3 hours prn, Yobani Mathur PA, 5mg at 09/19/20 0838 magnesium hydroxide (MILK OF MAGNESIA) oral suspension 30 mL, 30 mL, Oral, 2 times a day prn, Yobani Mathur PA bisacodyl (DULCOLAX) enteric coated tablet 5 mg, 5 mg, Oral, 2 times a day prn, Yobani Mathur PA, 5 mg at 09/17/20 2343 bisacodyl (DULCOLAX) suppository 10 mg, 10 mg, Rectal, 1 time a day prn, Yobani Mathur PA ondansetron (ZOFRAN) injection solution 4 mg, 4 mg, IV, Every 4 hours prn, Yobani Mathur PA benzocaine-menthol (CEPACOL w/ BENZOCAINE) lozenge 1 lozenge, 1 lozenge, Mouth/Throat, Every 4 hours prn, Yobani Mathur PA diphenhydrAMINE (BENADRYL) injection solution 25 mg, 25 mg, IV, Every 4 hours prn, Yobani Mathur PA fenofibrate (LOFIBRA) tablet 160 mg, 160 mg, Oral, at bedtime, Safia Patrick MD, 160 mg at 09/18/202117 hydroCHLOROthiazide tablet 25 mg, 25 mg, Oral, Every morning, Safia Patrick MD, 25 mg at09/19/20 0838 lisinopril (PRINIVIL, ZESTRIL) tablet 40 mg, 40 mg, Oral, daily, Safia Patrick MD, 40 mgat 09/19/20 0838 propranolol (INDERAL LA) extended release capsule 80 mg, 80 mg, Oral, daily, Safia Patrick MD, 80 mg at 09/19/20 0838 dextrose 50% IV solution 50 mL, 25 g, IV, PRN per parameter, Safia Patrick MD glucagon for injection 1 mg vial 1 mg, 1 mg, Intramuscular, PRN per parameter, Safia Patrick MD dextrose chewable tablet 16 g, 4 tablet, Oral, PRN per parameter OR carbohydrate 15 g, 15 g, Oral, PRN per parameter, Safia Patrick MD Jillian V Schommer, MD PGY-1, Orthopedic Surgery [employer] Associated attestation - Valente Spence MD - 09/19/2020 3:17 PM ADDICTION SOCIAL WORKER I discussed the patient with the resident and personally interviewed and examined the patient. I verified in the medical record all resident documentation/findings, including history, physical exam, and medical decision making, and I agree with the resident's documentation. Nery Sabillon PA - 09/18/2020 10:13 AM CST Orthopedic Daily Progress Note Assessment: Nara Parada is a 89yr old female status post Post-Op Diagnosis Codes: * Failure of left total hip arthroplasty with dislocation of hip, initial encounter ([facility]) [T84.021A] 1. Status post left KELBY revision by Dr. Cherry secondary to failed/dislocated left KELBY 2. Acute post-op blood loss anemia with pre-operative anemia - 2 units PRBCs transfused 09/18/20 3. DM II 4. CAD, s/p LAD stent 2017 5. HTN 6. GERD 7. Urinary retention 8. PMH TAVR with bioprosthetic valve 9. HLD 10. PMH elective left KELBY [address] Kadeem Ibanez 11. Mild memory loss 12. Post-op leukocytosis, mild Plan: 1. Pain control 2. DVT chemoprophylaxis: ASA 81mg po BID while in house and x 42 days post- hospital discharge 3. PT/OT: WBAT, posterior left hip precautions x 12 weeks post-op 4. D/C plan: Wants [place] swing bed vs home with [facility]. Anticipate discharge this , pending therapy goals met & pain controlled. F/U with Dr. Cherry in 2 weeks for wound check. Dressingeducation/incisional cares education discussed. Subjective: Patient is doing fine today. More sore today. Large BM. Appetite good. Sleeping well. Nocomplaints. Objective: BP 111/41 | Pulse 66 | Temp 97.6 F (36.4 C) | Resp 18 | Ht 1.651 m (5' 5") | Wt 68.4 kg (150 lb 12.7 oz) | SpO2 93% | BMI 25.09 kg/m Maximum Temperatures (last 24 hours) Temperature Maximum Max Temp 98.2 F (36.8 C) Intake and Output: 09/17 0700 - 09/18 0659 In: 300 [Oral:300] Out: 1050 [Urine:1050] General: A&Ox3, NAD, all 4's NVI. Respirations unlabored Exam: left lower extremity: left hip dressing remains C/D/I. Tolerates gentle A/PROM left leg, withsome discomfort. Negative Kourtney's. SILT distally. Lab Results Component Value Date WBC 11.3 (H) 09/17/2020 NUCRBC 0 09/06/2020 RBC 2.21 (L) 09/17/2020 HEMOGLOBIN 6.4 (LL) 09/18/2020 HEMATOCRIT 22.1 (L) 09/17/2020 MCV 100.0 (H) 09/17/2020 MCH 32.6 09/17/2020 MCHC 32.6 09/17/2020 PLTCOUNT 273 09/17/2020 NEUTROPCT 62.1 09/06/2020 LYMPHSPCT 24.7 09/06/2020 MONOSPCT 7.0 09/06/2020 EOSPCT 5.7 09/06/2020 BASOPHILPCT 0.4 09/06/2020 Lab Results Component Value Date PT 14.0 08/21/2020 INR 1.1 (L) 08/21/2020 Micro: 09/16/20 left hip OR cx: NGTD Labs and xrays were reviewed. afia Patrick MD - 09/18/2020 9:44 AM ADDICTION SOCIAL WORKER Hospital Progress Note Nara Parada is a 89yr old female who was admitted on 09/16/2020 8:45 AM Assessment / Plan Nara Parada is a 89yr old female with PMH significant for IDDM2, CAD s/p stenting in 2016, hypertension, dyslipidemia, severe s/p TAVR with bioprosthetic valve, and GERD. She is admitted for postoperative care following left revision KELBY for component failure. Underwent this revision surgeryon 09/16/2020 and tolerated well with no complications. Low Hb at 6.4 this morning, transfused 2 units PRBCs. #s/p revision L KELBY 09/16/2020 #postoperative anemia No concern for infection as cause of implant failure. EBL was 200 mL. Hb low this morning at 6.4, being transfused 2 units PRBCs. No pallor/dizziness/lightheadedness. - Pain control with oral/IV medications as needed - DVT ppx per orthopedics - Weight bearing recommendations per orthopedics - Bowel regimen - PT/OT for postop mobilization, discharge planning - Recheck Hb after transfusion and in AM - Case management for discharge planning #Diabetes mellitus type II, insulin dependent Recent HbA1c 6.4. Takes levemir 15 units QHS, 10 units Novolog with meals. Held prior to surgery. Blood glucose readings were high with low dose sliding scale insulin, increased to medium dose and glycemic control has been better. - sliding scale insulin - medium dose - POC glucose testing QID - continue levemir 15 units QHS #CAD s/p LAD stent in 2017 #Severe aortic stenosis s/p TAVR with bioprosthetic valve Follows with cardiology, has been stable. Takes ASA 81 mg daily. -Aspirin 81mg daily -PRN nitroglycerin for chest pain #Hypertension On lisinopril 40mg, propanolol 80mg, and HCTZ 25mg at home. Did have some high BP readings to 180's systolic overnight. No hypotension, no dizziness/presyncope -restart home antihypertensives today -monitor BP #GERD -continue omeprazole #urinary retention -continue oxybutinin -Bladder scan, straight cath PRN #dyslipidemia -continue fenofibrate Code status: Full DVT ppx: ASA 81 mg Diet: Regular Disposition: likely discharge to SNF in 1-2 days pending medical stability, placement. Subjective/ROS Nara reports she is doing well today. Hb was low at 6.4 this morning and she is receiving transfusion. She does not have any dizziness or lightheadedness. Was able to work with therapy yesterday without difficulty. Has some pain in her hip, but this is manageable with oral medications. No fevers, chills, chest pain, shortness of breath. She has had a bowel movement and been urinating without difficulty. No nausea or emesis. Physical / Results Min/Max 24 hours Vital Signs Temp (12hrs), Av F (36.7 C), Min:97.6 F (36.4 C), Max:98.2 F (36.8 C) Systolic (12hrs), Av , Min:123 , Max:149 Diastolic (12hrs), Av, Min:48, Max:54 Pulse: 71 O2 Device: Room Air O2 Flow Rate (L/min): 2 l/min Resp: 16 Pain Ratin (out of 10) Weight: 68.4 kg (150 lb 12.7 oz) SpO2: 90 % CBC: 11.3* \\ 6.4* / 273 / 22.1* \\ 09/17 534-09/18 0633 BMP: 139 108 36* / 137* 4.5 23 1.34* \\ 09/17 0558 General Appearance: adult well appearing female, in no acute distress. Sitting up in bed, eating breakfast. Neurological: Awake and alert, oriented x4, but loses track of conversation intermittently. Cranialnerves grossly intact, no apparent muscular weakness Resp: On room air saturating well. Clear to auscultation bilaterally with symmetric chest rise, no wheeze, rhonchi rales. Heart: Regular rate and rhythm, normal S1/S2 Abdomen: Soft, non distended, no diffuse tenderness. Bowel sounds presnt Extremities: Left hip dressing clean/dry/intact. Mild swelling of proximal thigh. No edema bilaterally, pulses are palpable with good capillary refill Skin: Skin is warm and dry with no obvious lesions Current Facility-Administered Medications: sodium chloride 0.9% IV solution flush bag, , IV, Continuous, Yobani Mathur PA, Last Rate: 30 mL/hr at 09/18/20 0745, 500 mL at 09/18/20 0745 insulin detemir (LEVEMIR) SQ injection, 15 Units, Subcutaneous, at bedtime, Safia Patrick MD, 15 Units at 09/17/202128 insulin aspart (NovoLOG) SQ correction scale (Adult), 2-12 Units, Subcutaneous, 3 times a day, Safia Patrick MD, 4 Units at 09/17/20 1736 cyanocobalamin (vitamin B-12) tablet 100 mcg, 100 mcg, Oral, daily, Yobani Mathur PA, 100 mcg at 09/18/20 0805 FLUoxetine (PROzac) capsule 20 mg, 20 mg, Oral, daily, Yobani Mathur PA, 20 mg at 09/18/20 0805 nitroglycerin (NITROSTAT) sublingual tablet 0.4 mg, 0.4 mg, Sublingual, Every 5 minutes prn, Yobani Mathur PA omeprazole (priLOSEC) capsule 20 mg, 20 mg, Oral, daily, Yobani Mathur PA, 20 mg at 09/18/20 06 oxybutynin (DITROPAN-XL) SR tablet (24 hr) 10 mg, 10 mg, Oral, at bedtime, Yobani Mathur PA, 10 mg at 09/17/20 205 vitamin D3 (cholecalciferol) tablet 25 mcg, 25 mcg, Oral, daily, Yobani Mathur PA, 25 mcg at 09/18/20 08 aspirin chewable tablet 81 mg, 81 mg, Oral, 2 times a day, Yobani Mathur PA, 81 mg at 09/18/20 0805 morphine preservative free injection solution (conc: 4 mg/mL) 4 mg, 4 mg, IV, Every 1 hour prn,Yobani Mathur PA sodium chloride 0.9% flush (adult) 10 mL, 10 mL, IV, 2 times a day and prn, Yobani Mathur PA, 10 mL at 09/18/20 0744 acetaminophen (TYLENOL) tablet 650 mg, 650 mg, Oral, Every 6 hours, Yobani Mathur PA, 650 mg at 09/18/20 0608 oxyCODONE (OXY-IR) tablet 5-10 mg, 5-10 mg, Oral, Every 3 hours prn, Yobani Mathur PA, 5mg at 09/17/20 2133 senna-docusate sodium (SENOKOT-S;PERICOLACE) tablet 2 tablet, 2 tablet, Oral, 2 times a day, Yobani Mathur PA, 2 tablet at 09/18/20 0806 polyethylene glycol (MIRALAX) packet 1 packet, 1 packet, Oral, Every 12 hours with food, Yobani Mathur PA, 1 packet at 09/18/20 0806 magnesium hydroxide (MILK OF MAGNESIA) oral suspension 30 mL, 30 mL, Oral, 2 times a day prn, Yobani Mathur PA bisacodyl (DULCOLAX) enteric coated tablet 5 mg, 5 mg, Oral, 2 times a day prn, Yobani Mathur PA, 5 mg at 09/17/20 2343 bisacodyl (DULCOLAX) suppository 10 mg, 10 mg, Rectal, 1 time a day prn, Yobani Mathur PA ondansetron (ZOFRAN) injection solution 4 mg, 4 mg, IV, Every 4 hours prn, Yobani Mathur PA benzocaine-menthol (CEPACOL w/ BENZOCAINE) lozenge 1 lozenge, 1 lozenge, Mouth/Throat, Every 4 hours prn, Yobani Mathur PA diphenhydrAMINE (BENADRYL) injection solution 25 mg, 25 mg, IV, Every 4 hours prn, Yobani Mathur PA fenofibrate (LOFIBRA) tablet 160 mg, 160 mg, Oral, at bedtime, Safia Patrick MD, 160 mg at 09/17/202049 hydroCHLOROthiazide tablet 25 mg, 25 mg, Oral, Every morning, Safia Patrick MD, 25 mg at09/18/20805 lisinopril (PRINIVIL, ZESTRIL) tablet 40 mg, 40 mg, Oral, daily, Safia Patrick MD, 40 mgat 09/18/20805 propranolol (INDERAL LA) extended release capsule 80 mg, 80 mg, Oral, daily, Safia Patrick MD, 80 mg at 09/18/20805 dextrose 50% IV solution 50 mL, 25 g, IV, PRN per parameter, Safia Patrick MD glucagon for injection 1 mg vial 1 mg, 1 mg, Intramuscular, PRN per parameter, Safia Patrick MD dextrose chewable tablet 16 g, 4 tablet, Oral, PRN per parameter OR carbohydrate 15 g, 15 g, Oral, PRN per parameter, Safia Patrick MD Jillian V Schommer, MD PGY-1, Orthopedic Surgery [employer] SOC[employer] WORKER Associated attestation - Valente Spence MD - 09/18/2020 3:59 PM ADDICTION SOCIAL WORKER I discussed the patient with the resident and personally interviewed and examined the patient. I verified in the medical record all resident documentation/findings, including history, physical exam, and medical decision making, and I agree with the resident's documentation. Yobani Mathur PA - 09/17/2020 9:34 AM CST Orthopedic Daily Progress Note Assessment: Nara Parada is a 89yr old female status post Post-Op Diagnosis Codes: * Failure of left total hip arthroplasty with dislocation of hip, initial encounter ([facility]) [T84.021A] 1. Status post left KELBY revision by Dr. Cherry secondary to failed/dislocated left KELBY 2. Acute post-op blood loss anemia with pre-operative anemia 3. DM II 4. CAD, s/p LAD stent 2016 5. HTN 6. GERD 7. Urinary retention 8. PMH TAVR with bioprosthetic valve 9. HLD 10. PMH elective left KELBY [address] Kadeem Ibanez 11. Mild memory loss 12. Post-op leukocytosis, mild Plan: 1. Pain control 2. DVT chemoprophylaxis: ASA 81mg po BID while in house and x 42 days post- hospital discharge 3. PT/OT: WBAT, posterior left hip precautions x 12 weeks post-op 4. Monitor HGB, anticipate she may require up to 2 units PRBC's if HBG drops below 7.0 4. D/C plan: Wants [place] swing bed vs home with [facility]. Anticipate discharge this , pending therapy goals met & pain controlled. F/U with Dr. Cherry in 2 weeks for wound check. Dressingeducation/incisional cares education discussed. Subjective: No acute events. Slept well, but felt disoriented for a single episode. Denies N/V. Pain controlled at rest, but more intense with mobility Objective: BP 123/53 | Pulse 60 | Temp 98.1 F (36.7 C) | Resp 16 | Ht 1.651 m (5' 5") | Wt 68.4 kg (150 lb 12.7 oz) | SpO2 98% | BMI 25.09 kg/m Maximum Temperatures (last 24 hours) Temperature Maximum Max Temp 98.4 F (36.9 C) Intake and Output: 09/16 0700 - 09/17 0659 In: 3077 [Oral:420] Out: 725 [Urine:375] General: A&Ox3, NAD, all 4's NVI. Respirations unlabored Exam: left lower extremity: left hip dressing remains c/d/i. Tolerates gentle A/PROM left leg, withsome discomfort. Negative Kourtney's. SILT distally. Lab Results Component Value Date WBC 11.3 (H) 09/17/2020 NUCRBC 0 09/06/2020 RBC 2.21 (L) 09/17/2020 HEMOGLOBIN 7.2 (L) 09/17/2020 HEMATOCRIT 22.1 (L) 09/17/2020 MCV 100.0 (H) 09/17/2020 MCH 32.6 09/17/2020 MCHC 32.6 09/17/2020 PLTCOUNT 273 09/17/2020 NEUTROPCT 62.1 09/06/2020 LYMPHSPCT 24.7 09/06/2020 MONOSPCT 7.0 09/06/2020 EOSPCT 5.7 09/06/2020 BASOPHILPCT 0.4 09/06/2020 Lab Results Component Value Date PT 14.0 08/21/2020 INR 1.1 (L) 08/21/2020 Micro: 09/16/20 left hip OR cx: NGTD afia Patrick MD - 09/17/2020 9:26 AM ADDICTION SOCIAL WORKER Hospital Progress Note Nara Parada is a 89yr old female who was admitted on 09/16/2020 8:45 AM Assessment / Plan Nara Parada is a 89yr old female with PMH significant for IDDM2, CAD s/p stenting in 2017, hypertension, dyslipidemia, severe s/p TAVR with bioprosthetic valve, and GERD. She is admitted for postoperative care following left revision KELBY for component failure. Underwent this revision surgeryon 09/16/2020 and tolerated well with no complications. #s/p revision L KELBY 09/16/2020 #postoperative anemia No concern for infection as cause of implant failure. EBL was 200 mL. Hb this morning was 7.2, patient still receiving fluids due to low oral intake. No pallor/dizziness/lightheadedness. - Pain control with oral/IV medications as needed - DVT ppx per orthopedics - Weight bearing recommendations per orthopedics - Bowel regimen - PT/OT for postop mobilization, discharge planning - Recheck Hb at 1200 today, transfuse if below 7. #Diabetes mellitus type II, insulin dependent Recent HbA1c 6.4. Takes levemir 15 units QHS, 10 units Novolog with meals. Held prior to surgery. Blood glucose readings have been high with low dose sliding scale insulin. - sliding scale insulin - medium dose - POC glucose testing QID - Restart levemir 15 units QHS #CAD s/p LAD stent in 2017 #Severe aortic stenosis s/p TAVR with bioprosthetic valve Follows with cardiology, has been stable. Takes ASA 81 mg daily. -Aspirin 81mg daily -PRN nitroglycerin for chest pain #Hypertension On lisinopril 40mg, propanolol 80mg, and HCTZ 25mg at home. Did have some high BP readings to 180's systolic overnight. No hypotension, no dizziness/presyncope -restart home antihypertensives today -monitor BP #GERD -continue omeprazole #urinary retention -continue oxybutinin -Bladder scan, straight cath PRN #dyslipidemia -continue fenofibrate Code status: Full DVT ppx: ASA 81 mg Diet: Regular Disposition: likely discharge to SNF in 1-2 days pending medical stability, placement. Subjective/ROS Nara reports she slept well last night, but did have an episode where she felt very disoriented and did not recognize things in her room. She says she feels better this morning but still feels slightly forgetful. Her son is at bedside and said she seems closer to her baseline this morning. She did get up with physical therapy yesterday and they recommended discharging to a low- intensity setting, which they are comfortable with. She has been up to the bathroom but has only been able to urinate small amounts. Nursing reports she has had good oral intake. They have not yet bladder scanned her but plan to today. She has not had any dizziness, no chest pain, no shortness of breath. Physical / Results Min/Max 24 hours Vital Signs Temp (12hrs), Av.8 F (36.6 C), Min:97.6 F (36.4 C), Max:98.1 F (36.7 C) Systolic (12hrs), Av , Min:123 , Max:149 Diastolic (12hrs), Av, Min:48, Max:54 Pulse: 60 O2 Device: Room Air O2 Flow Rate (L/min): 2 l/min Resp: 16 Pain Ratin (out of 10) Weight: 68.4 kg (150 lb 12.7 oz) SpO2: 98 % CBC: 11.3* \\ 7.2* / 273 / 22.1* \\ 09/17 0535 BMP: 139 108 36* / 214* 4.5 23 1.34* \\ 09/17 0535 General Appearance: adult well appearing female, in no acute distress. Neurological: Awake and alert, oriented x4, but intermittently loses track of her sentences. Cranial nerves grossly intact, no apparent muscular weakness Resp: On room air saturating well. Clear to auscultation bilaterally with symmetric chest rise, no wheeze, rhonchi rales. Heart: Regular rate and rhythm, normal S1/S2 Abdomen: Soft, non distended, no diffuse tenderness. Bowel sounds presnt Extremities: Left hip dressing clean/dry/intact. Mild swelling of proximal thigh. No edema bilaterally, pulses are palpable with good capillary refill Skin: Skin is warm and dry with no obvious lesions Current Facility-Administered Medications: insulin detemir (LEVEMIR) SQ injection, 15 Units, Subcutaneous, at bedtime, Safia Patrick MD insulin aspart (NovoLOG) SQ correction scale (Adult), 2-12 Units, Subcutaneous, 3 times a day, Safia Patrick MD cyanocobalamin (vitamin B-12) tablet 100 mcg, 100 mcg, Oral, daily, Yobani Mathur PA, 100 mcg at 09/17/20 0901 FLUoxetine (PROzac) capsule 20 mg, 20 mg, Oral, daily, Yobani Mathur PA, 20 mg at 09/17/20 0859 nitroglycerin (NITROSTAT) sublingual tablet 0.4 mg, 0.4 mg, Sublingual, Every 5 minutes prn, Yobani Mathur PA omeprazole (priLOSEC) capsule 20 mg, 20 mg, Oral, daily, Yobani Mathur PA, 20 mg at 09/17/20 0657 oxybutynin (DITROPAN-XL) SR tablet (24 hr) 10 mg, 10 mg, Oral, at bedtime, Yobani Mathur PA, 10 mg at 09/16/20 2245 vitamin D3 (cholecalciferol) tablet 25 mcg, 25 mcg, Oral, daily, Yobani Mathur PA, 25 mcg at 09/17/20 0859 aspirin chewable tablet 81 mg, 81 mg, Oral, 2 times a day, Yobani Mathur PA, 81 mg at 09/17/20 0900 morphine preservative free injection solution (conc: 4 mg/mL) 4 mg, 4 mg, IV, Every 1 hour prn,Yobani Mathur PA sodium chloride 0.9% flush (adult) 10 mL, 10 mL, IV, 2 times a day and prn, Yobani Mathur PA, 10 mL at 09/16/20 2246 sodium chloride 0.9% IV solution, , IV, Continuous, Yobani Mathur PA, Last Rate: 125 mL/hr at 09/17/20 0658, New Bag at 09/17/20 0658 acetaminophen (TYLENOL) tablet 650 mg, 650 mg, Oral, Every 6 hours, Yobani Mathur PA, 650 mg at 09/17/20 0539 oxyCODONE (OXY-IR) tablet 5-10 mg, 5-10 mg, Oral, Every 3 hours prn, Yobani Mathur PA, 5mg at 09/16/20 1840 senna-docusate sodium (SENOKOT-S;PERICOLACE) tablet 2 tablet, 2 tablet, Oral, 2 times a day, Yobani Mathur PA, 2 tablet at 09/17/20 0855 polyethylene glycol (MIRALAX) packet 1 packet, 1 packet, Oral, Every 12 hours with food, Yobani Mathur PA, 1 packet at 09/17/20 0855 magnesium hydroxide (MILK OF MAGNESIA) oral suspension 30 mL, 30 mL, Oral, 2 times a day prn, Yobani Mathur PA bisacodyl (DULCOLAX) enteric coated tablet 5 mg, 5 mg, Oral, 2 times a day prn, Yobani Mathur PA bisacodyl (DULCOLAX) suppository 10 mg, 10 mg, Rectal, 1 time a day prn, Yobani Mathur PA ondansetron (ZOFRAN) injection solution 4 mg, 4 mg, IV, Every 4 hours prn, Yobani Mathur PA benzocaine-menthol (CEPACOL w/ BENZOCAINE) lozenge 1 lozenge, 1 lozenge, Mouth/Throat, Every 4 hours prn, Yobani Mathur PA diphenhydrAMINE (BENADRYL) injection solution 25 mg, 25 mg, IV, Every 4 hours prn, Yobani Mathur PA ceFAZolin (ANCEF) 2000 mg/20 mL sterile water IV syringe, 2,000 mg, IV, Every 8 hours, Yobani Mathur PA, 2,000 mg at 09/17/20 0348 fenofibrate (LOFIBRA) tablet 160 mg, 160 mg, Oral, at bedtime, Safia Patrick MD, 160 mg at 09/16/20 2245 hydroCHLOROthiazide tablet 25 mg, 25 mg, Oral, Every morning, Safia Patrick MD, 25 mg at09/17/20 0900 lisinopril (PRINIVIL, ZESTRIL) tablet 40 mg, 40 mg, Oral, daily, Safia Patrick MD, 40 mgat 09/17/20 0900 propranolol (INDERAL LA) extended release capsule 80 mg, 80 mg, Oral, daily, Safia Patrick MD, 80 mg at 09/17/20 0900 dextrose 50% IV solution 50 mL, 25 g, IV, PRN per parameter, Safia Patrick MD glucagon for injection 1 mg vial 1 mg, 1 mg, Intramuscular, PRN per parameter, Safia Patrick MD dextrose chewable tablet 16 g, 4 tablet, Oral, PRN per parameter OR carbohydrate 15 g, 15 g, Oral, PRN per parameter, Safia Patrick MD Jillian V Schommer, MD PGY-1, Orthopedic Surgery CTION SOCIAL WORKER Associated attestation - Valente Spence MD - 09/17/2020 10:52 AM ADDICTION SOCIAL WORKER I discussed the patient with the resident and personally interviewed and examined the patient. I verified in the medical record all resident documentation/findings, including history, physical exam, and medical decision making, and I agree with the resident's documentation. Denzel Sauceda RPh - 09/16/2020 9:50 AM CST 09/16/2020 9:50 AM ADDICTION SOCIAL WORKER - Patient was seen by the pharmacy medication reconciliation team and HOME MEDICATIONS were reconciled and updated to match the patient's home usage. I SPOKE WITH THE PATIENT'S SON, BRYNN, TO CONFIRM THE VALIDITY OF THE HOME MEDICATION LIST. Home medications to be labeled for hospital use: NONE MOFFETT Med to Bed: YES No additions, deletions, or changes to the patient's home medication list were indicated. Prior to Admission Medications Prescriptions Last Dose Informant Patient Reported? Taking? FLUoxetine (PROZAC) 20 mg capsule 09/16/2020 at 0645 Child Yes Yes Sig: Take 1 capsule (20 mg) by mouth 1 time per day LEVEMIR FLEXTOUCH subcutaneous injection (pen) 09/15/2020 at HS Child No Yes Sig: INJECT 20 UNITS SUBCUTANEOUSLY EVERY NIGHT AT BEDTIME Patient taking differently: Inject 15 Units subcutaneously every night at bedtime Multiple Vitamins-Minerals (ABC PLUS PO) 09/02/2020 Child Yes Yes Sig: Take 1 tablet by mouth 1 time per day One Touch Ultra test strip Child No Yes Sig: USE TO TEST BLOOD SUGAR DIRECTED TWICE A DAY acetaminophen (TYLENOL ARTHRITIS) 650 mg CR tablet 09/16/2020 at 0645 Child Yes Yes Sig: Take 650 mg by mouth 3 times a day amoxicillin (AMOXIL) 500 mg tablet Greater than 1 Month at Unknown time Child No Yes Sig: Take 4 tablets (2,000 mg) by mouth 1 time when needed for other (Specify) (30-60 minutes prior to dental procedure.) for up to 1 dose aspirin 81 mg enteric coated tablet 09/07/2020 at AM Child Yes Yes Sig: Take 81 mg by mouth 1 time a day in the morning cyanocobalamin, vitamin B-12, 100 mcg tablet 09/02/2020 Child Yes Yes Sig: Take 100 mcg by mouth 1 time per day fenofibrate (TRICOR) 145 mg tablet 09/14/2020 at HS Child No Yes Sig: Take 1 tablet (145 mg) by mouth every night at bedtime hydroCHLOROthiazide 25 mg tablet 09/14/2020 at AM Child Yes Yes Sig: Take 25 mg by mouth 1 time a day in the morning insulin aspart (NOVOLOG FLEXPEN) subcutaneous injection (pen) 09/15/2020 at 1830 Child Yes Yes Sig: Inject 10 Units subcutaneously 3 times a day with meals lisinopril (PRINIVIL, ZESTRIL) 40 mg tablet 09/14/2020 at AM Child No Yes Sig: Take 1 tablet (40 mg) by mouth 1 time per day Patient taking differently: Take 40 mg by mouth 1 time a day in the morning multivitamin/lutein (PROSIGHT;OCUVITE-LUTEIN) capsule 09/02/2020 Child Yes Yes Sig: Take 1 capsule by mouth 2 times a day nitroglycerin (NITROSTAT) 0.4 mg sublingual tablet NEVER HAD TO USE Child No Yes Sig: Dissolve 1 tablet (0.4 mg total) under the tongue Every 5 minutes as needed for chest pain omeprazole (PRILOSEC) 20 mg capsule 09/16/2020 at 0645 Child Yes Yes Sig: Take 20 mg by mouth 1 time per day oxybutynin (DITROPAN-XL) 10 mg SR tablet (24 hr) 09/15/2020 at HS Child No Yes Sig: Take 1 tablet (10 mg) by mouth 1 time per day Patient taking differently: Take 10 mg by mouth every night at bedtime propranolol (INDERAL LA) 80 mg extended release capsule 09/16/2020 at 0645 Child Yes Yes Sig: Take 1 capsule (80 mg) by mouth 1 time per day senna (SENOKOT) 8.6 MG TABS Past Week at Unknown time Child Yes Yes Sig: Take 8.6 mg by mouth at bedtime as needed for constipation vitamin D3, cholecalciferol, 25 mcg (1000 unit) tablet 09/02/2020 Child Yes Yes Sig: Take 25 mcg by mouth 1 time per day. Facility-Administered Medications: None Patient denies use of other inhalers, creams/ointments, eye/ear drops, patches or injectables, OTCs,vitamins, and/or herbal products. Denzel Sauceda PharmD. [facility]. Kayden Gonzalez MD - 09/16/2020 7:01 AM CSTThe risks and benefits of operative intervention explained to and understood by the patient. These were inclusive but not exclusive of deep vein thrombosis, pulmonary embolism, bleeding and transfusion, leg length discrepancy, loss of motion, loss of function, failure of implants, infection, and treatment of infection, neurovascular or bony compromise with insertion and/or removal of implants, and associated medical risks of the operation. Alternative treatments have been discussed. The hope is to lessen pain and improve mobility. We discussed other treatment options previously including intra-articular cortisone injection, continued conservative management, versus arthroplasty. Potential surgeon conflict of interests were also discussed with research and/or development, consulting, and education. The patient admits to no changes in their status since their last history and physical examination. documented in this encounter Consult Notes Safia Patrick MD - 09/16/2020 1:26 PM CSTAssociated Order(s): CONSULT INTERNAL MEDICINE Consult Note CONSULT INTERNAL MEDICINE Consult performed by: Safia Patrick MD Consult ordered by: Yobani Mathur PA Reason for consult: Medical management s/p revision TKA Assessment / Plan Nara Parada is a 89yr old female with PMH significant for IDDM2, CAD s/p stenting in 2017, hypertension, dyslipidemia, severe s/p TAVR with bioprosthetic valve, and GERD. She is admitted for postoperative care following left revision KELBY for component failure. #s/p revision L KELBY 09/16/2020 No concern for infection as cause of implant failure. EBL was 200 mL. - Pain control with oral/IV medications as needed - DVT ppx per orthopedics - Weight bearing recommendations per orthopedics - Bowel regimen - PT/OT for postop mobilization, discharge planning - Hb, CBC, BMP in AM #Diabetes mellitus type II, insulin dependent Recent HbA1c 6.4. Takes levemir 15 units QHS, 10 units Novolog with meals. Held prior to surgery - sliding scale insulin - POC glucose testing QID - hold levemir for now, restart if hyperglycemic on evening checks #CAD s/p LAD stent in 2017 #Severe aortic stenosis s/p TAVR with bioprosthetic valve Follows with cardiology, has been stable. Takes ASA 81 mg daily. -Aspirin 81mg daily -PRN nitroglycerin for chest pain #Hypertension On lisinopril 40mg, propanolol 80mg, and HCTZ 25mg at home -restart home antihypertensives POD1 #GERD -continue omeprazole #urinary retention -continue oxybutinin -Bladder scan, straight cath PRN #dyslipidemia -continue fenofibrate HPI / History / ROS Nara Parada is a 89yr old female with PMH significant for IDDM2, CAD s/p stenting in 2017, hypertension, dyslipidemia, severe s/p TAVR with bioprosthetic valve, and GERD. 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 She was scheduled for revision left total hip replacement on an outpatient basis which was done by Dr. Cherry 09/16/2020. She tolerated the procedure well, estimated blood loss was 200 mL. Anesthesia reports she had some intraoperative blood pressure fluctuations but she has been stable in the PACU. She reports minimal pain currently. No nausea or vomiting. No headache or dizziness. She has had no recent health or medication changes. History Patient Active Problem List Diagnosis DM (diabetes mellitus) (HCC) Severe aortic stenosis Essential hypertension S/p TAVR (transcatheter aortic valve replacement), bioprosthetic Coronary artery disease involving [place] coronary artery of [place] heart without angina pectoris Dyslipidemia Closed left hip fracture (HCC) Mass of psoas muscle Closed dislocation of left hip (HCC) Diabetes mellitus (HCC) Current Facility-Administered Medications Medication Dose Route Frequency ondansetron (ZOFRAN) injection solution 4 mg 4 mg IV Every 4 hours prn ceFAZolin (ANCEF) 2000 mg/20 mL sterile water IV syringe 2,000 mg IV Every 8 hours ondansetron (ZOFRAN) injection solution 4 mg 4 mg IV 1 time prn And prochlorperazine (COMPAZINE) 10 mg/2 mL injection solution 5 mg 5 mg IV 1 time prn And diphenhydrAMINE (BENADRYL) injection solution 12.5 mg 12.5 mg IV 1 time prn albuterol (PROVENTIL) (2.5 mg/3mL) 0.083% inhalation soln 2.5 mg 2.5 mg Nebulization 1 time prn racepinephrine (S-2) 2.25 % inhalation solution 0.5 mL 0.5 mL Nebulization 1 time prn benzocaine-menthol (CEPACOL w/ BENZOCAINE) lozenge 1 lozenge 1 lozenge Mouth/Throat 1 time prn no anticoagulants/antiplatelets reminder 1 each Does not apply Upon permission lactated ringers IV solution IV Continuous fentaNYL 100 mcg/2 mL preservative free injection solution 50 mcg 50 mcg IV Every 5 minutes prn PHENYLephrine (SEAN-SYNEPHRINE) in sod chloride 0.9% (100 mcg/mL) infusion 0-2 mcg/kg/min IV Titrate Allergies Allergen Reactions Statins [Hmg-Coa-R Inhibitors] Statin Contraindication - Intolerance Past Medical History: Diagnosis Date Aortic stenosis moderate, 2013; follows with Cardiology Arthritis CAD (coronary artery disease) Diabetes mellitus (HCC) Difficult intravenous access Hyperlipidemia Hypertension Osteoporosis Stress incontinence, female Past Surgical History: Procedure Laterality Date ARTHROPLASTY KNEE TIBIAL PLATEAU WDEBRIDEMENT & PARTIAL SYNOVECTOMY Left CHOLECYSTECTOMY CHOLECYSTECTOMY JOINT REPLACEMENT REPLACEMENT AORTIC VALVE WITH BYPASS CORONARY ARTERY BYPASS Aortic valve replacement TOTAL HIP Left TRANSCATHETER PLACE INTRACORONARY STENT(S) PERCUTANEOUS; SNGL VESSEL Angioplasty with stent Family History Problem Relation Age of Onset Diabetes Mother Heart Disease Mother Social History Socioeconomic History Marital status: Spouse name: Not on file Number of children: Not on file Years of education: Not on file Highest education level: Not on file Social Needs Financial resource strain: Not on file Food insecurity Worry: Never true Inability: Never true Transportation needs Medical: Not on file Non-medical: Not on file Tobacco Use Smoking status: Never Smoker Smokeless tobacco: Never Used Substance and Sexual Activity Alcohol use: No Drug use: No Lifestyle Physical activity Days per week: 0 days Minutes per session: Not on file Stress: Not on file Review of Systems Review of Systems Constitutional: Negative for chills, fatigue and fever. HENT: Negative for sore throat. Respiratory: Negative for cough and shortness of breath. Cardiovascular: Negative for chest pain, palpitations and leg swelling. Gastrointestinal: Negative for abdominal pain, nausea and vomiting. Genitourinary: Negative for dysuria. Musculoskeletal: Positive for arthralgias. Skin: Positive for wound. Neurological: Negative for dizziness, light-headedness and headaches. Psychiatric/Behavioral: Negative for agitation and confusion. Physical / Results Current Vital Signs Temp: 97.5 F (36.4 C) BP: 130/43 Weight: 68.4 kg (150 lb 12.7 oz) SpO2: 98 % Resp: 14 Pulse: 67 O2 Device: NC - no humidity O2 Flow Rate (L/min): 1 l/min Pain Ratin Physical Exam Constitutional: General: She is not in acute distress. HENT: Head: Normocephalic and atraumatic. Nose: Nose normal. Mouth/Throat: Mouth: Mucous membranes are moist. Eyes: Extraocular Movements: Extraocular movements intact. Conjunctiva/sclera: Conjunctivae normal. Cardiovascular: Rate and Rhythm: Normal rate and regular rhythm. Pulses: Normal pulses. Heart sounds: Normal heart sounds. Pulmonary: Effort: Pulmonary effort is normal. Breath sounds: No wheezing or rales. Abdominal: General: Bowel sounds are normal. There is no distension. Palpations: Abdomen is soft. Tenderness: There is no abdominal tenderness. Musculoskeletal: Right lower leg: No edema. Left lower leg: Edema present. Comments: Dressing over left hip clean/dry/intact. No drainage. Mild swelling around incision. Tender to palpation. Skin: General: Skin is warm and dry. Capillary Refill: Capillary refill takes less than 2 seconds. Findings: No rash. Neurological: General: No focal deficit present. Mental Status: She is alert and oriented to person, place, and time. Psychiatric: Mood and Affect: Mood normal. Behavior: Behavior normal. Safia Fraire MD PGY-1, Orthopedic Surgery CTION SOCIAL WORKER Associated attestation - Valente Spence MD - 09/16/2020 2:49 PM ADDICTION SOCIAL WORKER I discussed the patient with the resident and personally interviewed and examined the patient. I verified in the medical record all resident documentation/findings, including history, physical exam, and medical decision making, and I agree with the resident's documentation. documented in this encounter Nursing Notes Filomena Mcgraw RN - 09/16/2020 11:40 AM CSTExplanted from left hip: Cup Liner Head Screws x4 CTION SOCIAL WORKER documented in this encounter Miscellaneous Notes Clinical Team - Carlos Gramajo RN - 09/20/2020 1:19 PM CSTPatient discharged [facility] accompanied by son. Patient was hospitalized for LTHA revision and pain is well controlled at this time with oral analgesics. Patient is ambulating utilizing FWW with CGA of 1. Reviewed all discharge instructions and video, including reiterating to pt to monitor bowel movements and use prescribed or OTC stool softeners as needed. Refer to AVS. See Patient Educa tion. Questions answered, patient verbalizes understanding. IV discontinued prior to discharge. All personal belongings sent with patient. Report called to [place] at [facility]. Interagency packet sent with son. are Planning - Carlos Gramajo RN - 09/20/2020 12:11 PM ADDICTION SOCIAL WORKER Problem: ACUTE PAIN Goal: CLIENT SATISFACTION: PAIN MANAGEMENT Description: DEFINITION: Extent of positive perception of nursing care to relieve pain. 1=Not at all satisfied, 2=Somewhat satisfied, 3=Moderately satisfied, 4=Very satisfied, 5=Completely satisfied. Outcome: Outcome acceptable for discharge Flowsheets (Taken 09/20/2020 1206) Patient Progress: Rating pain 2-3/10 day of discharge wqith MAPAP effective, per pt Problem: IMPAIRED PHYSICAL MOBILITY Goal: MOBILITY Description: DEFINITION: Ability to move purposefully in own environment independently with or without assistive device. 1=Severely compromised / Total assistance: Performs less than 25% of activity; 2=Substantially compromised / Maximal assistance: Performs 25-49% of activity; 3=Moderately compromised / Moderate assistance: Performs 50-74% of activity; 4=Mildly compromised / Modified independence: Needs assistive device, supervision, minimal contact,or safety is a concern; 5=Not compromised / Complete independence. Outcome: Outcome acceptable for discharge Flowsheets (Taken 09/20/2020 1206) Plan of care reviewed with: Patient Son/Daughter Patient Progress: Cleared by PT/OT to safely discharge to [facility] Problem: IMPAIRED MEMORY Goal: MEMORY Description: DESCRIPTION: Ability to cognitively retrieve and report previously stored information. 1=Severely compromised / Total assistance: Performs less than 25% of activity; 2=Substantially compromised / Maximal assistance: Performs 25-49% of activity; 3=Moderately compromised / Moderate assistance: Performs 50-74% of activity; 4=Mildly compromised / Modified independence: Needs assistive device, supervision, minimal contact,or safety is a concern; 5=Not compromised / Complete independence. Outcome: Outcome acceptable for discharge Flowsheets (Taken 09/20/2020 1206) Plan of care reviewed with: Patient Son/Daughter Patient Progress: At baseline. Discharged to [facility] ase Mgmt - Coleen Winston LSW - 09/20/2020 10:26 AM CSTCASE MANAGEMENT REFERRAL EDUCATION Patient in need of the following services: Transitional Care / Senior Care Facility / Swing Bed Discussion of this need and/or printed listing of available agencies has been provided to patient/substitute decision maker. Opportunities have been given for questions to be asked and answered. Patient/Substitute decision maker agency preferences for services (list in order of preference): 1. [facility] 2. n/a 3. n/a Referrals Made: Profiled via [employer] to following SNFs [facility] Medicare Comparison Information: Medicare guidelines require referring agencies to provide information regarding agency quality ratings. [facility] may assist with questions about facilities but cannot make recommendations. Patients and their families/decision makers are able to compare ratings of facilities at the following website: ttps://www.medicare.gov/vzaab-jkbt-fduurywey/fdzl-yrbpiyk-fozmgky-[place] [facility]-providers or you may call 1-800-MEDICARE Acceptance/Placement: [place] shares necessary clinical information with potential agencies to allow them to screen patients for safe admission to their facilities. This information is shared via secure communication. Acceptance by a post-acute facility is dependent on many factors including space, care needs, staffing, and insurance coverage. Financial disclosure: Verification of ownership of any agency/facility is available in the above Medicare website. [facility] is affiliated with [place]-owned home care, hospice, andskilled nursing facilities, including agencies with [employer] in the name and [employer]. Additional agencies may not have [employer] in their name. Medicare guidelines require [place] to provide a written list of options for your desired care. Youwill be provided a copy if desired. A copy of this document will be given to patient/substitute decision maker as confirmation of conversation regarding referrals and placement options. 09/20/2020 ANDRZEJ [place] Case Management P: [phone] F: [phone] signed by Coleen Winston LSW at 09/20/2020 10:27 AM CSTCase Mgmt - Coleen Winston LSW - 09/20/2020 10:21 AM CSTCASE MANAGEMENT / SOCIAL SERVICE FINAL TRANSITION PLAN TRANSITION DATE: 09/20/2020 TRANSITION TIME: 1300 INTENDED PAYER SOURCE FOR AGENCY: Medicare TRANSITION DESTINATION: Where: [facility] When: 09/20/2020 Time: 1300 Nurse to Nurse: [phone] Fax for Orders: [phone] DOES ACCEPTING FACILITY REQUIRE COVID TESTING BEFORE DISCHARGE: Needs one negative test within 24-48 hours TRANSITION TRANSPORTATION: Family Car TRANSPORTATION PAYMENT: Not applicable TRANSITION CHOICES OFFERED: Home Health: Home Safety Evaluation, Occupational Therapy and Physical Therapy Home: Family/Friend Support Outpatient Therapy: Occupational Therapy and Physical Therapy Swing Bed Transitional Care All discharge options were discussed. DOES THE PATIENT HAVE A PRIMARY CARE PHYSICIAN? Yes GER [place] PATIENT / SUBSTITUTE DECISION MAKER GOAL UPON TRANSITION: First Choice: Swing Bed PATIENT CHOICE EDUCATION: Choice form completed in Case Management note and copy given to patient/family MEDICARE 3 IP MIDNIGHT CRITERIA MET: Yes: Admitted on 09/16/2020 RESOURCE(S) PROVIDED: Placement DOES PATIENT HAVE CLOTHING TO WEAR AT DISCHARGE? Yes ANTICIPATED MODE OF TRANSPORT TO AND FROM FOLLOW UP APPOINTMENTS: As arranged by accepting facility VERIFIED CORRECT PHARMACY IS ENTERED FOR DISCHARGE: Reconcile medications as Patient Transfer ("65 button") METHOD OF PRESCRIBING MEDICATIONS: Reconcile medications as Patient Transfer ("65 button") TRANSITION ROUNDING COMPLETED WITH THE FOLLOWING: Patient / family Plasma Processing Technician Bedside retail selling floor leader RN Discussed in person COMMENTS / PATIENT AND FAMILY RESPONSE TO PLAN: Chart review was completed. Environmental Services Project Manager met with patient and patient's son at bedside; introduced self, case management role and discharge planning. Patient expressed that she is comfortable with the discharge plan to go to [facility]. Patient's son explained that he is also agreeable and is planning on providing transportation. Patient and patient's son did not have any other questions or concerns at this time. Environmental Services Project Manager will continue to follow to ensure a safe discharge plan and assess any needs that may arise. SPECIAL TRANSITION DAY INSTRUCTIONS TO NURSE / MD: AUXILIARY ENGINEER: Please fax interagency packet to above fax number. Nursing: Please call report at above number before patient leaves. MD: Please do Interagency transfer order set, ensure orders for PT, OT are included. When doing medication orders, there cannot be any range orders and indication is needed for all meds. Correct pharmacy is entered for e- prescribing meds to [facility], please print any controlled substance prescrip tions. CURRENT READMISSION RISK SCORE / HANDOFF: Predictive Risk Score Risk of Unplanned Readmission: 15.4 Handoff given: N/A SIGNED: ANDRZEJ [place] Case Management P: [phone] F: [phone] signed by Coleen Winston LSW at 09/20/2020 10:26 AM CSTPhysical Therapy - Elinor Luna, PT - 09/20/2020 9:02 AM ADDICTION SOCIAL WORKER Physical Therapy Orthopedic Discharge Note Date: 09/20/2020 Assessment/Recommendations: Patient slow to mobilize and progress ambulation during her acute hospital stay. Recommend continuedskilled PT at [facility] upon discharge today. Precautions: No twisting, bending more than 90 degrees at the waist, and turning on left LE Referring Physician: Kayden Cherry MD Diagnosis/Surgical Procedure and Date: L KELBY Revision on 09/16/2020 Subjective: Alert and Orientated, seated in bedside recliner. Objective: Supine to/from sit: NA Sit to/from stand: CGA of 1 from recliner up to FWW. Moderate-maximal cues for hand positioning andL LE positioning for maintaining precautions and for safety. Sitting Balance: Good in recliner Standing Balance: Good with walker and CGA Gait: Skilled gait training 80 ft with FWW and CGA of 1. Cues for equal step length, upright posture, and use of increased UE support during L stance to reduce pain. Pt fatigues quickly. Stairs: NA Exercises: Patient completes L KELBY exercises x 10 repetitions with minimal assistance for active exercises: ankle pumps, quad sets, ham sets, glut sets, heel slide flexion, heel slide abduction/adduction, SLR, and LAQ. Pain: (0-10 scale) At rest: 0 With Activity: 5 (with gait) Education: Completed for precautions, use of equipment, home exercise activity and mobility progression. Patient needs review of precautions and home exercise program. Equipment: Patient transferring to another inpatient facility-no equipment provided. Assessment: Patient needs continued reinforcement for safe mobility. Goals: Patient did not meet goals identified in initial evaluation. Patient will continue to work towards these goals at [facility]. Plan: Patient will be discharged to [facility]. Time Treatment Occurred: 08:32 Gait: 10 minutes Exercise: 15 minutes Therapeutic Activity: 0 minutes TOTAL TIMED CODES: 25 minutes TREATMENT TOTAL TIME: 25 minutes linical Team - Jacqui Jiménez RN - 09/20/2020 6:41 AM CSTPt AOx1. VSS,pt able to ambulate with walker and one assist. Pt restless most of night. Bed and chair alarm on. Call light within reach. No new complaints. Will continue to monitor. are Planning - Jacqui Jiménez RN - 09/19/2020 9:13 PM ADDICTION SOCIAL WORKER Problem: IMPAIRED PHYSICAL MOBILITY Goal: MOBILITY Description: DEFINITION: Ability to move purposefully in own environment independently with or without assistive device. 1=Severely compromised / Total assistance: Performs less than 25% of activity; 2=Substantially compromised / Maximal assistance: Performs 25-49% of activity; 3=Moderately compromised / Moderate assistance: Performs 50-74% of activity; 4=Mildly compromised / Modified independence: Needs assistive device, supervision, minimal contact,or safety is a concern; 5=Not compromised / Complete independence. Outcome: NOC Rating 2 are Planning - Ivanna Fontanez RN - 09/19/2020 7:29 PM ADDICTION SOCIAL WORKER Problem: ACUTE PAIN Goal: CLIENT SATISFACTION: PAIN MANAGEMENT Description: DEFINITION: Extent of positive perception of nursing care to relieve pain. 1=Not at all satisfied, 2=Somewhat satisfied, 3=Moderately satisfied, 4=Very satisfied, 5=Completely satisfied. Outcome: NOC Rating 4 Flowsheets (Taken 09/19/20201926) Patient specific goal for the day: Patient will notify staff of any increasing pain throughout shift. Patient specific goal for the stay: Adequate pain control. Patient Progress: Patient reporting mild-moderate pain throughout shift. Patient at times having difficulty/confusion with reporting pain. Scheduled Tylenol given q6h. Family at bedside for support. Ice provided to L) hip. Will continue to monitor and reasses pain throughout shift. CTION SOCIAL WORKER Occupational Therapy - DrakeIrenaERI gonzalezR/L - 09/19/2020 4:03 PM ADDICTION SOCIAL WORKER Occupational Therapy Orthopedic Progress Note Treatment Today's Treatment Self care/home management: 30 minutes Start Time: 1415 Total for time-based codes: 30 minutes Total treatment time: 30 minutes Impression/Plan: See daily M-F for ADL/transfer training/education, assess adpative equipment needs. Recommend: Short term SNF Goals by discharge: Patient will be min assist with bed, chair, toilet, car transfers with adaptive equipment as needed. Patient will be min assist with tub/shower transfer with adaptive equipment as needed. Patient will be min assist with self care skills with adaptive Pt progressing towards goals Pain: Pain at rest: 03/04 Pain during activity: 03/04 Location: L hip Treatment provided: Patient incontinent sitting EOB with nursing staff upon therapist arrival. Pt was agreeable to OT. Pt ambulated bed>bathroom with CGA and completed toilet transfer with CGA and verbal cues for body positioning to maintain KELBY precautions. Patient required CGA for toileting and mod assist to complete partial bed bath/to change gown. Patient was transported to OT gym via w/c and was educated in car transfer techniques. Patient completed car transfer with meka Duggan, needing assist for managing LLE into/out of the car. Patient's son arrived at the end of session & noted that pt uses this technique to transfer into the car at baseline. Educated pt's son to recline the seat to main tain KELBY precautions. Pt left sitting in chair at the end of the session with chair alarm in place. LEs elevated, ice applied, and call light/tray table in knife blade polisher. Pt's son at bedside with all needs met. Recommend patient continue with skilled therapies at [facility], as patient would not be safe to d/c home at this time. Pt is safe to transport by family car. Adaptive Equipment Recommended: To further assess. Pt reports having all AE needed at home. Assessment: Patient showing a decrease in ADL/transfer performance and will benefit from continued OT. Therapist pager #: [phone] Certification Dates: 09/19/2020-09/19/2020 CERTIFICATION I certify that the services as described in the above note are furnished while the patient is under my care; a plan for furnishing these services has been established and will be periodically reviewed;the services are required for the patient; and the services are subject to established guidelines CTION SOCIAL WORKER Physical Therapy - Christina Khan DPT - 09/19/2020 1:26 PM CST Physical Therapy Orthopedic Treatment Note Date: 09/19/2020 Subjective: Alert and Oriented. Precautions: KELBY precautions Recommendation/Assessment: Anticipate that patient will be ready to go to [facility] at 13:00 on 09/20. Family/value stream coach present for PT session: Son and daughter were present (see flowsheet) Objective: Lab Results Component Value Date HEMOGLOBIN 9.1 (L) 09/19/2020 Supine to/from sit: MIN A x 1 Sit to/from stand: CGA x 1 to FWW Sitting Balance: Good Standing Balance: Good with FWW Gait: Ambulated 80 feet x 1 with FWW, CGA x 1, recliner to follow, cues for posture and gait pattern. Stairs: N/A ROM: AROM on flexion was 60 degrees, ABD 20 degrees Exercises: Patient completes 10 reps of exercise with surgical LE which includes: ankle pumps, quad/ham/glut sets of good quality , and heel slide/abduction slide and SAQ/SLR with leg storeroom clerk assistance. Pain: (0-10 scale) At rest: 6 With Activity: 6 Education: Patient and Family was educated on precautions, exercise progression, transfer techniques, gait andmobility progression today through explanation and demonstration. They accepted teaching and verbalized understanding. Plan: Continue with PT plan of care. Time Treatment Occurred: 1300 Gait: 15 Minutes Therapeutic Exercise: 15 minutes Therapeutic Activity: 0 Minutes TOTAL TIMED CODES: 30 minutes TREATMENT TOTAL TIME: [address] [facility] - Coleen Winston LSW - 09/19/2020 12:06 PM CSTCASE MANAGEMENT / SOCIAL SERVICE TRANSITION PLAN - PROGRESS NOTE PLAN: [facility] on 09/20 at 1300 Awaiting Medical Doctor Recommendations for Transition Transition Options Being Explored Will Continue to Follow for Support and Progression Towards Final Transition Plan BARRIERS TO TRANSITION: Awaiting Placement: Senior Care/Swing Bed/TCU Awaiting Therapy Recommendations Discharge Needs to be Determined DOES ACCEPTING FACILITY REQUIRE COVID TESTING BEFORE DISCHARGE: Needs one negative test within 24-48 hours COMMENTS / PATIENT AND FAMILY RESPONSE TO PLAN: Chart review was completed. Environmental Services Project Manager met with patient and patient's son at bedside; introduced self, case management role and discharge planning. Environmental Services Project Manager explained that [facility] would like to accept patient on 09/20 for admission.Patient expressed that she is agreeable. Patient's son explained that he will transport her there. Patient and patient's son did not have any other questions or concerns at this time. Environmental Services Project Manager will continue to follow to ensure a safe discharge plan and assess any needs that may arise. Where: [facility] When: 09/20/2020 Time: 1300 Nurse to Nurse: [phone] Fax for Orders: [phone] IS PATIENT'S ADMISSION ASSOCIATED WITH TIA, ISCHEMIC, OR HEMORRHAGIC STROKE?: No PATIENT / SUBSTITUTE DECISION MAKER GOAL UPON TRANSITION: First Choice: Senior Care Facility ANTICIPATED NEEDS UPON TRANSITION: Home Health: Home Safety Evaluation, Occupational Therapy and Physical Therapy Home: Family/Friend Support Outpatient Therapy: Occupational Therapy and Physical Therapy Swing Bed Transitional Care All discharge options were discussed. RESOURCE(S) PROVIDED: nothing needed at this time ANTICIPATED MODE OF TRANSPORT UPON TRANSITION: Family Car ANTICIPATED MODE OF TRANSPORT TO AND FROM FOLLOW UP APPOINTMENTS: As arranged by accepting facility VERIFIED CORRECT PHARMACY IS ENTERED FOR DISCHARGE: "65" button TRANSITION ROUNDING COMPLETED WITH THE FOLLOWING: Patient / family Plasma Processing Technician Bedside retail selling floor leader RN Discussed in person SIGNED: ANDRZEJ Kenyon Case Management P: [phone] F: [phone] signed by Coleen Winston LSW at 09/19/2020 12:09 PM CSTPhysical Therapy - Christina Khan DPT - 09/19/2020 11:15 AM ADDICTION SOCIAL WORKER Physical Therapy Orthopedic Treatment Note Date: 09/19/2020 Subjective: Alert and Oriented. Precautions: No twisting, bending more than 90 degrees at the waist, and turning on left LE Recommendation/Assessment: Anticipate that patient will be ready to go SNF in [place] on 09/19/20 at 13:00. Family/value stream coach present for PT session: Son present throughout and very supportive (see flowsheet) Objective: Lab Results Component Value Date HEMOGLOBIN 9.1 (L) 09/19/2020 Supine to/from sit: MIN A x 1 Sit to/from stand: CGA x 1 to FWW Sitting Balance: Good Standing Balance: Good with FWW Gait: Patient ambulated 40 feet x 2 with FWW, recliner to follow, cues for step through gait pattern. Patient demonstrated SOB, internal medicine was educated on SOB. Stairs: NA ROM: Hip flexion 60 degrees Exercises: Patient completes 10 reps of exercise with surgical LE which includes: ankle pumps, quad/ham/glut sets of good quality , and heel slide/abduction slide and SAQ/SLR with MIN/leg storeroom clerk assistance. Pain: (0-10 scale) At rest: 5 With Activity: 5 Education: Patient and Family was educated on precautions, exercise progression, transfer techniques, gait andmobility progression today through explanation and demonstration. They accepted teaching and verbalized understanding. Plan: Continue with PT plan of care. Time Treatment Occurred: 1030 Gait: 15 Minutes Therapeutic Exercise: 15 minutes Therapeutic Activity: 30 Minutes TOTAL TIMED CODES: 30 minutes TREATMENT TOTAL TIME: 30 Minutes linical Team - Yuliet Peña RN - 09/19/2020 4:08 AM CSTPt is alert and oriented X3. VSS on RA. Per pt, pain is worse with activity otherwise denies pain when at rest, continues on scheduled Tylenol. No concerns voiced overnight. Will continue to monitor. are Planning - Alba Nguyen RN - 09/19/2020 12:57 AM ADDICTION SOCIAL WORKER Problem: IMPAIRED PHYSICAL MOBILITY Goal: MOBILITY Description: DEFINITION: Ability to move purposefully in own environment independently with or without assistive device. 1=Severely compromised / Total assistance: Performs less than 25% of activity; 2=Substantially compromised / Maximal assistance: Performs 25-49% of activity; 3=Moderately compromised / Moderate assistance: Performs 50-74% of activity; 4=Mildly compromised / Modified independence: Needs assistive device, supervision, minimal contact,or safety is a concern; 5=Not compromised / Complete independence. Flowsheets (Taken 09/19/2020 0056) Initial Score: 3 Target Score: 4 Plan of care reviewed with: Patient Patient specific goal for the day: Patient will transfer safely with staff each shift Patient specific goal for the stay: Meet criteria for safe discharge Achieve goal for stay: By discharge Patient Progress: Patient is up with assist of one staff, FWW, and gait belt. tolerates well. uses call light appropriately most times. are Planning - Jade Arredondo RN - 09/18/2020 8:14 PM ADDICTION SOCIAL WORKER Problem: ACUTE PAIN Goal: CLIENT SATISFACTION: PAIN MANAGEMENT Description: DEFINITION: Extent of positive perception of nursing care to relieve pain. 1=Not at all satisfied, 2=Somewhat satisfied, 3=Moderately satisfied, 4=Very satisfied, 5=Completely satisfied. Outcome: NOC Rating 3 Flowsheets (Taken 09/18/20202010) Plan of care reviewed with: Patient Patient specific goal for the day: Pain control Patient specific goal for the stay: Pain control on PO medications Achieve goal for stay: By discharge Patient Progress: Patient has been rating pain 5/10 this shift, PRN oxy given per eMAR. Ice also used. Will continue to monitor and re-assess. Problem: IMPAIRED PHYSICAL MOBILITY Goal: MOBILITY Description: DEFINITION: Ability to move purposefully in own environment independently with or without assistive device. 1=Severely compromised / Total assistance: Performs less than 25% of activity; 2=Substantially compromised / Maximal assistance: Performs 25-49% of activity; 3=Moderately compromised / Moderate assistance: Performs 50-74% of activity; 4=Mildly compromised / Modified independence: Needs assistive device, supervision, minimal contact,or safety is a concern; 5=Not compromised / Complete independence. Outcome: NOC Rating 3 Flowsheets (Taken 09/18/20202010) Plan of care reviewed with: Patient Patient specific goal for the day: No falls, ambulate with staff, use the call light Patient specific goal for the stay: Find safe discharge plan Achieve goal for stay: By discharge Patient Progress: Patient up with an assist of 1/GB/W. Fall precautions in place, bed alarm on for safety. Patient has been using the call light appropriately this shift. Will continue to monitor and re-assess. CTION SOCIAL WORKER Physical Therapy - Gabino Matt, PT - 09/18/2020 4:22 PM CST Physical Therapy Orthopedic KELBY Treatment Note Date: 09/18/2020 Assessment/Recommendations: Patient received 2 units of blood this morning. Patient tolerates exercise with moderate assist, transfers with FWW and minimal assist and ambulates 42 ft x 2 with FWW andminimal assist and close follow with recliner. Patient not safe to discharge directly home will require SNF stay for additional therapy. Look to discharge to [facility] in 1 - 2 days. Subjective: Alert and agreeable to PT with her son and daughter present.. Objective: Gait belt donned for any out of bed activities. Lab Results Component Value Date HEMOGLOBIN 6.4 (LL) 09/18/2020 Supine to/from sit: Goes supine to sit with moderate assist to support LE's and trunk. Sit to/from stand: Goes sit to stand from raised bed with minimal assist and verbal cues. Sitting Balance: Fair Standing Balance: Fair with FWW and contact assist. Gait: Ambulates 42 feet x 2 with FWW and minimal assist with slow, semi- reciprocating gait pattern with wide base of support. Tends to get walker too far out in front and requires physical assist to manage walker placement. At completion of treatment, patient to sit up in recliner and cold pack applied left hip with her son and daughter present. Stairs: - ROM: AAROM left hip - flexion - 65 degrees, abduction - 25 degrees Exercises: Patient completes 10 reps of exercise with surgical LE which includes: ankle pumps, quad/ham/glut sets of fair quality , and heel/abduction slide and SAQ/SLR with moderate assistance. Pain: (0-10 scale) At rest: 0 With Activity: 6 Education: Reviewed precautions, exercise progression, transfer techniques, gait and mobility progression. Assessment: Patient tolerated treatment fair. Anticipate that patient will be ready to go to SNF. Plan: Continue with plan of care. Time Treatment Occurred: 1543 Gait: 15 Minutes Therapeutic Exercise: 20 minutes Therapeutic Activity: 0 minutes TOTAL TIMED CODES: 35 minutes TREATMENT TOTAL TIME: 35 minutes ase Mgmt - Coleen Winston LSW - 09/18/2020 3:43 PM CSTCASE MANAGEMENT / SOCIAL SERVICE TRANSITION PLAN - PROGRESS NOTE PLAN: [facility] Awaiting Medical Doctor Recommendations for Transition Transition Options Being Explored Will Continue to Follow for Support and Progression Towards Final Transition Plan BARRIERS TO TRANSITION: Awaiting Placement: Senior Care/Swing Bed/TCU Awaiting Therapy Recommendations Discharge Needs to be Determined DOES ACCEPTING FACILITY REQUIRE COVID TESTING BEFORE DISCHARGE: Needs one negative test within 24-48 hours COMMENTS / PATIENT AND FAMILY RESPONSE TO PLAN: Chart review was completed. Environmental Services Project Manager met with patient and patient's son at bedside; introduced self, case management role and discharge planning. Environmental Services Project Manager explained that she spoke with admissions to [facility] to discuss possible bed offer and they stated that they can accept patient once they see how she does with therapy inthe morning following the blood infusion. Patient's on also expressed that he agrees with the bed offer. Patient expressed that she would like to accept it. Patient and patient's son did not have any other questions or concerns at this time. Environmental Services Project Manager will continue to follow to ensure a safe discharge plan and assess any needs that may arise. IS PATIENT'S ADMISSION ASSOCIATED WITH TIA, ISCHEMIC, OR HEMORRHAGIC STROKE?: No PATIENT / SUBSTITUTE DECISION MAKER GOAL UPON TRANSITION: First Choice: Senior Care Facility ANTICIPATED NEEDS UPON TRANSITION: Home Health: Home Safety Evaluation, Occupational Therapy and Physical Therapy Home: Family/Friend Support Outpatient Therapy: Occupational Therapy and Physical Therapy Swing Bed Transitional Care All discharge options were discussed. RESOURCE(S) PROVIDED: nothing needed at this time ANTICIPATED MODE OF TRANSPORT UPON TRANSITION: [facility] Wheel[facility] (P:[phone]) [facility] St[facility] (P: [phone]) ANTICIPATED MODE OF TRANSPORT TO AND FROM FOLLOW UP APPOINTMENTS: As arranged by accepting facility VERIFIED CORRECT PHARMACY IS ENTERED FOR DISCHARGE: No TRANSITION ROUNDING COMPLETED WITH THE FOLLOWING: Patient / family Plasma Processing Technician Bedside retail selling floor leader RN Discussed in person SIGNED: ANDRZEJ Kenyon Case Management P: [phone] F: [phone] signed by Coleen Winston LSW at 09/18/2020 3:48 PM CSTCare Planning - Chanel Bhandari RN - 09/18/2020 2:35 PM ADDICTION SOCIAL WORKER Problem: ACUTE PAIN Goal: CLIENT SATISFACTION: PAIN MANAGEMENT Description: DEFINITION: Extent of positive perception of nursing care to relieve pain. 1=Not at all satisfied, 2=Somewhat satisfied, 3=Moderately satisfied, 4=Very satisfied, 5=Completely satisfied. 09/18/20201435 by Chanel Bhandari RN Flowsheets (Taken 09/18/20201435) Plan of care reviewed with: Son/Daughter Outcome: NOC Rating 4 Flowsheets (Taken 09/18/2020 1433) Plan of care reviewed with: Patient Patient specific goal for the day: Tolerable pain level with activity. Patient Progress: Admin analgesics as ordered. See MAR. Cont to elevate/ice/reposition PRN. Problem: IMPAIRED PHYSICAL MOBILITY Goal: MOBILITY Description: DEFINITION: Ability to move purposefully in own environment independently with or without assistive device. 1=Severely compromised / Total assistance: Performs less than 25% of activity; 2=Substantially compromised / Maximal assistance: Performs 25-49% of activity; 3=Moderately compromised / Moderate assistance: Performs 50-74% of activity; 4=Mildly compromised / Modified independence: Needs assistive device, supervision, minimal contact,or safety is a concern; 5=Not compromised / Complete independence. Outcome: NOC Rating 4 Flowsheets (Taken 09/18/20201432) Plan of care reviewed with: Patient Son/Daughter Patient specific goal for the day: Up safely with staff. Patient Progress: Up with 1/gait belt/FWW to commode. Steady. Tolerated well. No falls so far this shift. CTION SOCIAL WORKER Occupational Therapy - Page Rdz OTR/L - 09/18/2020 2:17 PM CSTPt getting blood , not seen for OT this pm. hysical Therapy - Gabino Matt, PT - 09/18/2020 10:42 AM CSTHold PT this am per Mackenzie Gabriel as she is receiving transfusion now. linical Team - Bessy Juan RN - 09/18/2020 7:12 AM CSTLab called with critical hemoglobin of 6.4. YARELY Vela notified. Radha gave TORB to infuse 2 units of PRBC and give 25mg benadryl before blood is administered. He also gave orders for hemoglobin to be rechecked as an early am draw on 09/19/20. CTION SOCIAL WORKER Care Planning - Isha Blair RN - 09/18/2020 4:20 AM ADDICTION SOCIAL WORKER Problem: IMPAIRED MEMORY Goal: MEMORY Description: DESCRIPTION: Ability to cognitively retrieve and report previously stored information. 1=Severely compromised / Total assistance: Performs less than 25% of activity; 2=Substantially compromised / Maximal assistance: Performs 25-49% of activity; 3=Moderately compromised / Moderate assistance: Performs 50-74% of activity; 4=Mildly compromised / Modified independence: Needs assistive device, supervision, minimal contact,or safety is a concern; 5=Not compromised / Complete independence. Outcome: NOC Rating 2 Flowsheets (Taken 09/18/2020 0419) Initial Score: 2 Target Score: 4 Plan of care reviewed with: Patient Patient specific goal for the day: Orientated x3 Patient specific goal for the stay: Baseline Achieve goal for stay: By discharge Patient Progress: Pt orientated to person. Pt confused and impulsive, setting off bed alarm. Pt however redirectable. Pt has been sleeping for 2 hours uninterrupted. Will continue care rounding. ase [facility] - Coleen Winston LSW - 09/17/2020 3:00 PM CSTCASE MANAGEMENT / SOCIAL SERVICE TRANSITION PLAN - PROGRESS NOTE PLAN: SNF/TCU Awaiting Medical Doctor Recommendations for Transition Transition Options Being Explored Will Continue to Follow for Support and Progression Towards Final Transition Plan BARRIERS TO TRANSITION: Awaiting Placement: Senior Care/Swing Bed/TCU Awaiting Therapy Recommendations Discharge Needs to be Determined DOES ACCEPTING FACILITY REQUIRE COVID TESTING BEFORE DISCHARGE: Needs one negative test within 24-48 hours COMMENTS / PATIENT AND FAMILY RESPONSE TO PLAN: Chart review was completed. Environmental Services Project Manager met with patient at bedside; introduced self, case management role and discharge planning. Environmental Services Project Manager explained that she spoke with admissions to [facility] to discuss possible bed offer and they stated that are considering them but will need more therapy notes before deciding. Patient [facility]still [facility] go to [facility] prior to returning home with her son. Patient did not have any other questions or concerns at this time. Environmental Services Project Manager will continue to follow to ensure a safe discharge plan and assess any needs that may arise. IS PATIENT'S ADMISSION ASSOCIATED WITH TIA, ISCHEMIC, OR HEMORRHAGIC STROKE?: No PATIENT / SUBSTITUTE DECISION MAKER GOAL UPON TRANSITION: First Choice: Senior Care Facility ANTICIPATED NEEDS UPON TRANSITION: Home Health: Home Safety Evaluation, Occupational Therapy and Physical Therapy Home: Family/Friend Support Outpatient Therapy: Occupational Therapy and Physical Therapy Swing Bed Transitional Care All discharge options were discussed. RESOURCE(S) PROVIDED: nothing needed at this time ANTICIPATED MODE OF TRANSPORT UPON TRANSITION: [facility] Wheel[facility] (P:[phone]) [facility] Stret[facility] (P: [phone]) ANTICIPATED MODE OF TRANSPORT TO AND FROM FOLLOW UP APPOINTMENTS: As arranged by accepting facility VERIFIED CORRECT PHARMACY IS ENTERED FOR DISCHARGE: No TRANSITION ROUNDING COMPLETED WITH THE FOLLOWING: Patient / family Plasma Processing Technician Bedside retail selling floor leader RN Discussed in person SIGNED: ANDRZEJ Kenyon Case Management P: [phone] F: [phone] signed by Coleen Winston LSW at 09/17/2020 3:04 PM CSTCare Planning - Jaclyn Hussein RN - 09/17/2020 1:56 PM ADDICTION SOCIAL WORKER Problem: ACUTE PAIN Goal: CLIENT SATISFACTION: PAIN MANAGEMENT Description: DEFINITION: Extent of positive perception of nursing care to relieve pain. 1=Not at all satisfied, 2=Somewhat satisfied, 3=Moderately satisfied, 4=Very satisfied, 5=Completely satisfied. Flowsheets (Taken 09/17/2020 2743) Initial Score: 2 Target Score: 4 Plan of care reviewed with: Patient Patient specific goal for the day: keep pain at a tolerable level Patient specific goal for the stay: keep pain at a tolerable level with oral pain meds Achieve goal for stay: By discharge Patient Progress: Patient rating pain 5-4/10 on the pain scale at this time. Medication given see mar. Pain management is in place and educated to patient nursing will continue to monitor. Problem: IMPAIRED PHYSICAL MOBILITY Goal: MOBILITY Description: DEFINITION: Ability to move purposefully in own environment independently with or without assistive device. 1=Severely compromised / Total assistance: Performs less than 25% of activity; 2=Substantially compromised / Maximal assistance: Performs 25-49% of activity; 3=Moderately compromised / Moderate assistance: Performs 50-74% of activity; 4=Mildly compromised / Modified independence: Needs assistive device, supervision, minimal contact,or safety is a concern; 5=Not compromised / Complete independence. Flowsheets (Taken 09/17/2020 1523) Initial Score: 2 Target Score: 3 Plan of care reviewed with: Patient Patient specific goal for the day: walk Patient specific goal for the stay: pass PT/OT Patient Progress: Pt is up with a gait belt and FWW. PT/OT is following, see notes hysical Therapy - Gabino Matt, PT - 09/17/2020 1:33 PM CST Physical Therapy Orthopedic KELBY Treatment Note Date: 09/17/2020 Assessment/Recommendations: Patient tolerates exercise with moderate assist, transfers with FWW andmoderate assist and ambulates 120 ft with FWW and moderate assist and close follow with recliner. Patient not safe to discharge directly home will require SNF stay for additional therapy. Subjective: Awake and agreeable to PT with her son present.. Objective: Gait belt donned for any out of bed activities. Lab Results Component Value Date HEMOGLOBIN 7.9 (L) 09/17/2020 Supine to/from sit: Goes sit to supine with moderate assist to support LE's and trunk. Sit to/from stand: Goes sit to stand from raised bed with moderate assist and verbal cues. Sitting Balance: Fair Standing Balance: Fair minus with FWW and contact assist. Gait: Ambulates 120 feet with FWW and moderate assist with slow, semi- reciprocating gait pattern with wide base of support. Tends to get walker too far out in front and requires physical assist to manage walker placement. Stairs: - ROM: AAROM left hip - flexion - 65 degrees, abduction - 25 degrees Exercises: Patient completes 10 reps of exercise with surgical LE which includes: ankle pumps, quad/ham/glut sets of fair quality , and heel/abduction slide and SAQ/SLR with moderate assistance. Pain: (0-10 scale) At rest: 7 With Activity: 7 Education: Reviewed precautions, exercise progression, transfer techniques, gait and mobility progression. Assessment: Patient tolerated treatment fair. Anticipate that patient will be ready to go to SNF. Plan: Continue with plan of care. Time Treatment Occurred: 1308 Gait: 10 Minutes Therapeutic Exercise: 15 minutes Therapeutic Activity: 0 minutes TOTAL TIMED CODES: 25 minutes TREATMENT TOTAL TIME: 25 minutes hysical Therapy - Gabino Matt, PT - 09/17/2020 11:27 AM CST Physical Therapy Orthopedic KELBY Treatment Note Date: 09/17/2020 Assessment/Recommendations: Patient tolerates exercise with moderate assist, transfers with FWW andmoderate assist and ambulates 120 ft with FWW and moderate assist and close follow with recliner. Patient not safe to discharge directly home will require SNF stay for additional therapy. Subjective: Awake and agreeable to PT with her son present.. Objective: Gait belt donned for any out of bed activities. Lab Results Component Value Date HEMOGLOBIN 7.2 (L) 09/17/2020 Supine to/from sit: Nt as in recliner. Sit to/from stand: Goes sit to stand from recliner with moderate assist and verbal cues. Sitting Balance: Fair Standing Balance: Fair minus with FWW and contact assist. Gait: Ambulates 120 feet with FWW and moderate assist with slow, semi- reciprocating gait pattern with wide base of support. Tends to get walker too far out in front and requires physical assist to manage walker placement. Stairs: - ROM: - Exercises: Patient completes 10 reps of exercise with surgical LE which includes: ankle pumps, quad/ham/glut sets of fair quality , and heel/abduction slide and SAQ/SLR with moderate assistance. Pain: (0-10 scale) At rest: 0 With Activity: 0 Education: Reviewed precautions, exercise progression, transfer techniques, gait and mobility progression. Assessment: Patient tolerated treatment well. Anticipate that patient will be ready to go to SNF. Plan: Continue with plan of care. Time Treatment Occurred: 1102 Gait: 10 Minutes Therapeutic Exercise: 15 minutes Therapeutic Activity: 0 minutes TOTAL TIMED CODES: 25 minutes TREATMENT TOTAL TIME: 25 minutes ccupational Therapy - Kim Gifford OTR/Sharan - 09/17/2020 9:19 AM CST Occupational Therapy Orthopedic Evaluation Date: 09/17/2020 Time: 9:18 Admitting Diagnosis: s/p LEFT TOTAL HIP ARTHROPLASTY REVISION, per chart review PMH: Past Medical History: Diagnosis Date Aortic stenosis moderate, 2013; follows with Cardiology Arthritis CAD (coronary artery disease) Diabetes mellitus (HCC) Difficult intravenous access Hyperlipidemia Hypertension Osteoporosis Stress incontinence, female Precautions: KELBY Weight bearing status: WBAT SOCIAL/HOME ENVIRONMENT House: one-level Lives Alone: No; with son, Brynn Bed/Bath on Main Floor: Yes Bath Setup: Walk-In Shower with door Prior Level of Functioning: Independent with grooming, bathing and toileting, and dressing, except son assists with socks and shoes, and family assists with all IADL's Adaptive Equipment Available: shower chair, hand held shower, grab bars tub/shower, handicapped-height toilet, knife blade polisher and front-wheeled walker ADLs Dressing: Patient reports family assists with socks and shoes at baseline, however was previously independent to don underwear/pants. Patient reports she has reachers at home and knows how to use them.Provided education and demonstration on use of knife blade polisher to increase independence with donning/doffing underwear and pants while adhering to hip precautions. Recommended placement of surgical leg into pant leg first when donning and out last when doffing, and to initiate donning and complete doffing underwear/pants in sitting for safety. Patient able to demonstrate how to operate knife blade polisher (open/close), however required maximum /hand-over hand assist and verbal cues to sequence threading bilateral feet into leg holes of pants using knife blade polisher. Patient requires assistance to pull up over hips in standing and minimal -moderate assist for standing balance. Toileting: Patient denied need TRANSFERS Chair: moderate assistance with walker and combined visual, tactilce and verbal cues for hand placement and sequencing Toilet: minimal assistance with walker and grab bar, and combined visual, tactilce and verbal cues for hand placement and sequencing Patient completes short distance functional mobility chair <> toilet with minimal assist of 2 using FWW and physical assist and verbal cues to keep walker close for safety. Total Hip precautions were reviewed with the patient. Patient requires continued education/review of precautions. UE FUNCTION: WFL COGNITION: Alert and oriented to self, and location, however unable to recall hip precautions. Pt having difficulty following commands. Patient and patient's son, indicated patient is not at baseline for cognition and son reported patient having more difficulty following instructions this date. Pain Level at Rest: 0/10 Pain Level with Activity: Pt reports increased pain with activity though does not rate on numerical scale. PATIENT/FAMILY EDUCATION: KELBY precautions Transfers Self Care Role of OT Family present during evaluation: son Adaptive Equipment Recommended: To further assess pending progress Plan to obtain adaptive equipment: To further assess. Assessment: Patient showing a decrease in ADL/transfer performance and will benefit from continued OT. Plan: Discharge OT/No OT services needed at this time. Recommend: Short term SNF Goals by discharge: Patient will be min assist with bed, chair, toilet, car transfers with adaptive equipment as needed. Patient will be min assist with tub/shower transfer with adaptive equipment as needed. Patient will be min assist with self care skills with adaptive equipment as needed. Today's Treatment Evaluation Self care/home management: 10 minutes Total for time-based codes: 10 minutes Total treatment time: 35 minutes Evaluation Complexity PMH/Comorbidities that affect Occupational Performance: See above PMH Occupational Profile/Medical and Therapy History: LOW - Brief history relating to presenting problem Patient Assessment: LOW - 1-3 performance deficits relating to physical, cognitive, psychosocial limitations/restrictions Clinical Decision Making: LOW - Low complexity, limited amount of treatment options, no assessment modification, no comorbidities Evaluation Complexity: Low Treatment provided: Patient was educated on the role and benefits of occupational therapy including plan for today's session, and patient agreed to OT session. Therapist provided education/ training onTHA precautions, strategies and adaptive equipment to increase independence and safety with ADL tasks, and steps for each transfer at FWW level. Patient agreed to and completed LE dressing task as wellas toilet and chair transfers. Refer to above sections for further details on ADL's and transfers. Recommended patient complete functional transfers in therapy department which would be set-up to simulate home setting and training/ education provided, including car transfer to ensure safe transport toT/SNF facility, however patient declined this date due to fatigue. Gait belt, non-slip foot wear and FWW utilized for all out of bed activity/transfers. At end of session, pt sitting comfortable in recliner chair with call light, phone and tray table within reach, and chair alarm on for safety. No further questions/ concerns. Therapist pager #: [phone] Certification Dates: 09/17/2020 to 10/16/2020 CERTIFICATION I certify that the services as described in the above note are furnished while the patient is under my care; a plan for furnishing these services has been established and will be periodically reviewed;the services are required for the patient; and the services are subject to established guidelines are Planning - Ivett Ramírez RN - 09/17/2020 4:43 AM ADDICTION SOCIAL WORKER Problem: ACUTE PAIN Goal: CLIENT SATISFACTION: PAIN MANAGEMENT Description: DEFINITION: Extent of positive perception of nursing care to relieve pain. 1=Not at all satisfied, 2=Somewhat satisfied, 3=Moderately satisfied, 4=Very satisfied, 5=Completely satisfied. Outcome: NOC Rating 4 Flowsheets (Taken 09/17/2020 6084) Plan of care reviewed with: Patient Patient specific goal for the day: Patient will report adequate pain control with scheduled and PRN pain medication. Patient Progress: Pain controlled overnight with scheduled pain medications. Patient calls appropriately for pain medication. Problem: IMPAIRED PHYSICAL MOBILITY Goal: MOBILITY Description: DEFINITION: Ability to move purposefully in own environment independently with or without assistive device. 1=Severely compromised / Total assistance: Performs less than 25% of activity; 2=Substantially compromised / Maximal assistance: Performs 25-49% of activity; 3=Moderately compromised / Moderate assistance: Performs 50-74% of activity; 4=Mildly compromised / Modified independence: Needs assistive device, supervision, minimal contact,or safety is a concern; 5=Not compromised / Complete independence. Outcome: NOC Rating 4 Flowsheets (Taken 09/17/2020 9602) Patient specific goal for the day: Patient will progress in mobility using gaitbelt and walker. Willcall appropriately for assistance and remain free from falls/injury. Patient Progress: Patient was able to get up with assist of 1-2 to bedside commode. Tolerated will. Bed alarm on. are Planning - Delphine Maier RN - 09/16/2020 11:37 PM ADDICTION SOCIAL WORKER Problem: ACUTE PAIN Goal: CLIENT SATISFACTION: PAIN MANAGEMENT Description: DEFINITION: Extent of positive perception of nursing care to relieve pain. 1=Not at all satisfied, 2=Somewhat satisfied, 3=Moderately satisfied, 4=Very satisfied, 5=Completely satisfied. Outcome: NOC Rating 3 Flowsheets (Taken 09/16/2020 2999) Plan of care reviewed with: Patient Patient specific goal for the day: Patient to have pain at tolerable levels. Patient specific goal for the stay: Patient to have pain at tolerable levels on oral pain medication. Note: Educated patient on pain control options including scheduled Tylenol and PRN Oxycodone. Information sheets given on mediations. Strongly encouraged patient to take pain medication regularly to keep ahead of the pain and with food to help prevent GI upset. Also strongly encouraged patient to ask for pain medication as needed and inform staff if needing something more for pain to keep pain controlled. Repositioned and cold pack or polar care applied as well to affected extremity. Patient verbalized understanding of all instructions. Problem: IMPAIRED PHYSICAL MOBILITY Goal: MOBILITY Description: DEFINITION: Ability to move purposefully in own environment independently with or without assistive device. 1=Severely compromised / Total assistance: Performs less than 25% of activity; 2=Substantially compromised / Maximal assistance: Performs 25-49% of activity; 3=Moderately compromised / Moderate assistance: Performs 50-74% of activity; 4=Mildly compromised / Modified independence: Needs assistive device, supervision, minimal contact,or safety is a concern; 5=Not compromised / Complete independence. Outcome: NOC Rating 3 Flowsheets (Taken 09/16/2020 1558) Plan of care reviewed with: Patient Patient specific goal for the day: Patient to not fall. Patient specific goal for the stay: Patient to pass all PT and OT goals without falls. Note: Patient encouraged to sit up in the chair for meals and walk later with nursing to help build strength. Patient did sit up in the chair for 35 minutes, but declined to go for another walk. Instructed patient not to get up on own for safety and yellow wrist band in place. Patient's son states that patient does have some confusion at times and that it does get worse at night. Bed and chair alarms on for safety. Explained therapies planned to see patient today as well and that staff will be performing care rounding every hour during the day. Patient verbalized understanding of all instructions and agreeable to plan. hysical Therapy - Gabino Matt, PT - 09/16/2020 4:17 PM CST Physical Therapy Orthopedic KELBY Evaluation Date: 09/16/2020 Assessment/Recommendations: Patient awake and groggy with her daughter and son present. Patient tolerates PT evaluation, exercise and walking fair. Patient goes supine to sit with moderate assist tosupport LE's and trunk, goes sit to stand with moderate assist x 2 and ambulates 18 feet with FWW and moderate assist x 2 with unsafe gait pattern as patient puts walker too far in front of her. Patient to sit up in recliner now with chair alarm turned on. Patient's present and updated. Recommend SNF stay at this time for additional therapy prior to going home. Patient's family in agreement of this plan. Referring Physician: Kayden Cherry MD Diagnosis/Surgical Procedure and Date: Left total hip arthroplasty - revision Significant PMH: Past Medical History: Diagnosis Date Aortic stenosis moderate, 2013; follows with Cardiology Arthritis CAD (coronary artery disease) Diabetes mellitus (HCC) Difficult intravenous access Hyperlipidemia Hypertension Osteoporosis Stress incontinence, female Physician Orders: Evaluate and treat: yes Gait and exercise: yes Weight Bearing Status: As tolerated. Precautions: left total hip arthroplasty Lab Results Component Value Date HEMOGLOBIN 10.7 (L) 09/06/2020 Status Prior to Hospitalization/Surgical Procedure: Current Living Environment: Lives independently in split level home. Stairs to Enter Home: 2 Railin Stairs to Bedroom or Bathroom: 8 Railin Ambulation Status: Independent Equipment Owned: Cane, FWW Patient/Family Concerns: Safety with mobility. Patient Goals: Go to [facility] if indicated. Other: - Current Status: Cognition: Awake and groggy. Observation: Gait belt donned for any out of bed activities. O2 @ 1 liters ROM: AAROM left hip - flexion: 46 degrees Abduction: 20 degrees Transfers: Supine to/from Sit: Goes supine to sit with moderate assist x 1 with support to LE's and trunk. Sit to/from Stand: Goes sit to stand with moderate assist x 2 from bed along with verbal cues. Balance: Sitting: Fair minus at bed edge. Standing: Fair minus with FWW and contact assist. Gait: Ambulates 18 feet with FWW and minimal to moderate assist x 2 with slow, unsafe shuffling gait pattern. Patient tends to put walker too far in front of her causing her to flex excessively from the waist. Stairs: - Exercises: Completes 10 repetitions of bilateral ankle pumps and the following exercises with surgical LE including: quad/ham/glut set of fair quality, and supine heel/abduction slide, SAQ and SLR with moderate assistance. Pain Level: (0-10 scale) At rest: 3 With Activity: 3 Comments: Patient/Family Education: Reviewed precautions, role of the physical therapist, and discussed anticipated outcome goals. Other: Family Present during Evaluation: Patient's son and daughter present. Treatment: Time Treatment Occurred: 1539 Evaluation: X Gait: 10 minutes Therapeutic Exercise: 15 minutes Therapeutic Activity: 0 minutes TOTAL TIMED CODES: 25 minutes TREATMENT TOTAL TIME: 40 minutes Assessment: Patient presents with impaired functional mobility post surgical procedure and will benefit with continued PT. Patient may require post acute inpatient recovery time at : SNF/Inpatient Rehab/other. Plan: Follow daily for gait training, therapeutic exercise, therapeutic activity, and education. Goals: By hospital discharge or within 2 - 3 days/hospital discharge. Patient/family involved in developing/progressing goals and treatment plan. Supine to sit with minimal assist. Sit to stand with minimal assist. Ambulate 150 feet on level surfaces with contact assist and appropriate assistive device. Up/Down 5 steps with moderate assist and appropriate assistive device. Follow precautions during functional mobility. Discharge hip ROM of 65 degrees of supine flexion and 15 degrees of abduction. Independent or able to instruct caregiver in home exercise program. Appropriate assistive device available for ambulation. Certification dates: 09/16/2020 to: 09/23/2020 CERTIFICATION I certify that the services as described in the above note are furnished while the patient is under my care; a plan for furnishing these services has been established and will be periodically reviewed;the services are required for the patient; and the services are subject to established guidelines. Referring Provider: Dr Navarrok Carlos Guthrie - Coleen Winston LSW - 09/16/2020 3:11 PM CSTCASE MANAGEMENT / SOCIAL SERVICE TRANSITION PLAN - INITIAL ASSESSMENT TRANSITION PLAN: Home with HH vs. Placement Awaiting Patient/Family Decision Regarding Plan of Care Transition Options Being Explored Will Continue to Follow for Support and Progression Towards Final Transition Plan BARRIERS TO TRANSITION: Awaiting Therapy Recommendations Discharge Needs to be Determined Medical barriers:surgery today and post op cares COMMENTS / PATIENT AND FAMILY RESPONSE TO PLAN: Chart review was completed. Environmental Services Project Manager met with patient and patients son and daughter at bedside; introduced self, case management role and discharge planning. Patient explained that she lives at home with her son in [place], [place]. 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 Patient expressedthat her son is also independent, able to drive and no longer works. Environmental Services Project Manager discussed all discharge options per recommendations, possible insurance coverage and other criteria. Patient was understandable to this. Patient and patient's family stated that they would hope that patient could return home at discharge but are aware that placement may be recommended. Patient is agreeable to placement if needed and gave fiction and nonfiction writer prose permission to profile her via [facility] to [facility]. Patient and patient'sfamily did not have any other questions or concerns at this time. Environmental Services Project Manager will continue to follow to ensure a safe discharge plan and assess any needs that may arise. ADMISSION DX: Failure of left total hip arthroplasty with dislocation of hip, initial encounter ([facility]) [T84.021A] PATIENT STATUS: Admit w/ Surgery RELEASE OF INFORMATION: Yes -- verbal for: discharge planning SOURCES OF INFORMATION (See demographics for contact information): Medical Doctor Medical Record Nurse: Bedside Patient Son Daughter CURRENT LIVING SITUATION / LEVEL OF ASSISTANCE: Lives with son Home is not handicap accessible: many stairs Independent Cane Front Wheeled Walker COMMUNITY SERVICES: None HEALTHCARE DIRECTIVE: Yes-On File and reviewed POWER OF CONTRACTOR GENERAL ENGINEERING: Healthcare Power of Sales Engagement Manager FINANCIAL CONCERNS: No Concerns PRIMARY CARE PHYSICIAN: Yes : No IS PATIENT'S ADMISSION ASSOCIATED WITH TIA, ISCHEMIC, OR HEMORRHAGIC STROKE?: No LANGUAGE / COMMUNICATION BARRIERS: No PATIENT / SUBSTITUTE DECISION MAKER GOAL UPON TRANSITION: First Choice: [facility] Second Choice: Home Health: Home Safety Evaluation, Nurse, Occupational Therapy and Physical Therapy Home: Family/Friend Support ANTICIPATED NEEDS, TRANSITION CHOICES OFFERED: Home Health: Home Safety Evaluation, Occupational Therapy and Physical Therapy Home: Family/Friend Support Outpatient Therapy: Occupational Therapy and Physical Therapy Swing Bed Transitional Care All discharge options were discussed. RESOURCE(S) PROVIDED: nothing needed at this time DOES PATIENT HAVE CLOTHING TO WEAR AT DISCHARGE? Yes ANTICIPATED MODE OF TRANSPORT UPON DISCHARGE: [facility] Wheelchair (P:[phone]) [facility] Stretcher (P: [phone]) Family Car VERIFIED CORRECT PHARMACY IS ENTERED FOR DISCHARGE: No CURRENT READMISSION RISK SCORE Please refer to readmission risk assessment flowsheet for further details. SIGNED: ANDRZEJ Kenyon Case Management P: [phone] F: [phone] signed by Coleen Winston LSW at 09/16/2020 3:17 PM CSTClinical Team - Delphine Maier RN - 09/16/2020 3:08 PM CSTPatient arrived to room 482 @ 1400 from pacu. Report received from pacu nurse and dual skin assessment completed without any skin abnormalities noted. Oriented patient to room, call light, menu, IS, DVT prevention (SCDs), pain control, IVF, and activity. Admit folder at patient bedside. Also explained shift plan of care and more. All questions answered at this time and patient encouraged to use call light with any needs including pain. See graphics for VS. Continue to monitor. ostOp Progress Note - Kayden Cherry MD - 09/16/2020 12:07 PM CST Immediate Post-Operative / Post Procedure Progress Note Att. Phys: Kayden Cherry MD Pt. Type: Admit w/ Surgery Operative Date: 09/16/2020 Surgeon: Surgeon(s) and Role: * Kayden Cherry MD - Primary Railroad Firer/Fireman: Magistrate : Filomena Mcgraw RN; Jeana Faulkner RN Scrub Person : Bee Knox, ADDICTION SOCIAL WORKER; Crystal Roblero CST Preparation Supervisor Freezing: Yobani Mathur PA The skilled assistance of my certified surgical technologist, Yobani mathur was necessary because of the magnitude of the operation and no qualified surgical elastic knitter hand frame availability. They participated in positioning of the patient, assistance with the procedure, assistance with wound closure and dressing application. Pre-Operative Diagnosis: Pre-Op Diagnosis Codes: * Failure of left total hip arthroplasty with dislocation of hip, initial encounter ([facility]) [T84.021A] non-applicable Post-Operative Diagnosis: As diagnosed Anesthesia Type: spinal Operative Procedure: Procedure(s): LEFT TOTAL HIP ARTHROPLASTY REVISION - Wound Class: Clean * No specimens in log * Implant Name Type Inv. Item Serial No. Heating Engineer Lot No. [id number] No. Used Action HIP HD OXIN [facility] 07/08 28MM +0 N [id number] [facility] [id number] Total Jt Hip HIP HD OXIN [facility] 07/08 28MM +0N [id number] [id number] Left 1 Implanted HIP SCREW G7 LOPRODOME6.5X30MM N [id number] [facility] - [id number] Total Jt Hip HIP SCREW G7 LOPRODOME6.5X30MM N [id number] [facility] KELLEN [id number] Left 1 Implanted HIP SCREW G7 LOPRODOME6.5X50MM N [id number] EA - [id number] Total Jt Hip HIP SCREW G7 LOPRODOME6.5X50MM N [id number] EA KELLEN [id number] Left 1 Implanted HIP SHELL OSSEOTI MULT I 66MM N [id number] EA1 - [id number] Total Jt Hip HIP SHELL OSSEOTI MULT I 66MM N [id number] EA KELLEN [id number] Left 1 Implanted HIP LNR VIVACIT-E [id number] N [id number] EA1 - [id number] Total Jt Hip HIP LNR VIVACIT-E [id number] N [id number] EA KELLEN [id number] Left 1 Implanted HIP LNR G7 PE DUAL SZI 54MM N [id number] EA1 - [id number] Total Jt Hip HIP LNR G7 PE DUAL SZI 54MM N [id number] EA KELLEN [id number] Left 1 Implanted Fluids Given: See Anesthesia Record Urine Output: See Anesthesia Record Estimated Blood Loss: 200 mL Drains: none Findings: As diagnosed Complications: none Postoperative Condition: stable are Planning - Gareth Sierra RN - 09/16/2020 9:43 AM ADDICTION SOCIAL WORKER Problem: RISK FOR INJURY Goal: SURGICAL RECOVERY: IMMEDIATE POST-OPERATIVE Description: DEFINITION: Extent to which an individual achieves physiological baseline function following major surgery requiring anesthesia. 1=Severe deviation from normal range, 2=Substantial deviation from normal range, 3=Moderate deviation from normal range, 4=Mild deviation from normal range, 5=No deviation from normal range. Outcome: NOC Rating 3 Flowsheets (Taken 09/16/2020 0941) Initial Score: 3 Target Score: 4 Patient specific goal for the stay: Patient will have successful procedure today Patient Progress: Patient admitted to preop room with son at bedside. Patient resting comfortably inchair. Patient's son answered most questions. Patient and son oriented to plan of care for the day, room and call light system. All questions answered and support provided to patient during admission. CTION SOCIAL WORKER Operative Note - Kayden Cherry MD - 09/16/2020 1:00 AM [facility] PATIENT NAME: NARA PARADA DATE OF SERVICE: 09/16/2020 BEN: [id number] SURGEON: Kayden Cherry MD. ELECTRIC POWER SUPERINTENDENT: YARELY Vela. 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 POSTOPERATIVE DIAGNOSIS: Failed left total hip arthroplasty. PROCEDURE PERFORMED: Left total hip arthroplasty revision. COMPONENTS INSERTED: A 66 mm OD G7 acetabular shell, 66 mm OD neutral dual mobility liner, +0 x 28 mm femur. PROCEDURE PERFORMED: The patient was taken to the operating theater and received a spinal anesthetic. Once the anesthesia was adequate, left lower extremity was prepped and draped in a routine manner. Through a posterolateral approach, the procedure was performed. Incision deepened through the subc utaneous tissue and the fascia margarita divided in a manner similar to the skin incision. External rotators and posterior capsule then released off the posterior aspect of the femur. The femur was retracted anteriorly and the soft tissues debrided within the acetabulum. The acetabulum was noted to be grossly loose and sequentially extracted. 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 Gentle forward and reverse reaming was then used to gain fixation within the acetabulum. The acetabulum wasthoroughly irrigated and dried and sequential cementing, press fit was obtained of the acetabular with dome screws were used to secure fixation. Trial reductions were performed. Once satisfied with leg lengths, offset and stability, the actual femoral head was placed on the cleansed and dried trunnion. The femoral cement mantles to be well fixed. We thoroughly irrigated and dried, both prior to and after placing components. Then #5 Tycron sutures were then used to close the posterior capsular tissues. Then #2 Vicryl was then used to close the fascia margarita with #2 Quill for the subcutaneous tissues, 3-0 Quill for the skin. Dermabond was used to seal the wound. Then 120 mL of a multimodal pain cocktail was injected into the hip joint. Patient tolerated the procedure well. No complications were noted. Patient was then transferred tothe postanesthesia recovery room in good condition. ESTIMATED BLOOD LOSS: 200 mL. FINDINGS: Consistent with the preoperative diagnosis. Kayden Cherry MD Receipt: [id number] Trans ID: [id number]/[facility] ADDICTION SOCIAL WORKER ADDICTION SOCIAL WORKER cc:YOBANI MATHUR, PA documented in this encounter Plan of Treatment Date Type Specialty Care Team Description 09/30/2020 Office Visit Orthopedics Nery Sabillon PA [address] [place] [address] [phone] 10/10/2020 Appointment CARDIOLOGY Silverio Huber PA-C [address] [place] [address] [phone] 10/10/2020 Office Visit CARDIOLOGY Mook Jarrett DO [address] [place] [address] [phone] documented as of this encounter Implants Implanted Type Area Heating Engineer Device Shelf Model / Identifier Expiration Serial / Lot Date Stnt Resolute 2.90s24ry N [id number] Ea-08/12/2016 Cardiovascular [employer] [id number] / Implanted: 08/12/2016 by Mook Jarrett DO (Quantity not on file) / [id number] Stnt Resolute 3.78p99vd N [id number] Ea (Aka [id number] 038ux)-08/12/2016 Cardiovascular [employer] [id number] / Implanted: 08/12/2016 by Mook Jarrett DO (Quantity not on file) / [id number] Stnt Resolute 3.89k44dn N [id number] Ea (Aka [id number] 026ux)-08/12/2016 Cardiovascular [employer] [id number] / Implanted: 08/12/2016 by Mook Jarrett DO (Quantity not on file) / [id number] Thv Alvino 3 23mm N [id number] Ea-09/08/2016 Cardiovascular ED WARDS [id number] / Implanted: 09/08/2016 by Mook Jarrett DO (Quantity not on jourdan e) [employer] [id number] / Hip Lnr G7 Pe Dual Szi 54mm N [id number] Ea1 - [id number] Total J t Hip Left: [facility] 07/12/2030 [id number] / Implanted: Qty: 1 on 09/16/2020 by Kayden Smith MD at [facility] HIP / [id number] Hip Hd Oxin Mtl 07/08 28mm +0 N [id number] Ea1 - [id number] Total Jt Hip Left: [place] 01/23/2025 [id number] / Implanted: Qty: 1 on 09/16/2020 by Kayden Smith MD at [facility] HIP / [id number] Hip Screw G7 Loprodome6.5x30mm N [id number] Ea1 - [id number] Tota l Jt Hip Left: [facility] 02/20/2030 [id number] / Implanted: Qty: 1 on 09/16/2020 by Kayden Smith MD at [facility] HIP / [id number] Hip Screw G7 Loprodome6.5x50mm N [id number] Ea1 - [id number] Tota l Jt Hip Left: [facility] 05/21/2025 [id number] / Implanted: Qty: 1 on 09/16/2020 by Kayden Smith MD at [facility] HIP / [id number] Hip Shell Osseoti Mult I 66mm N [id number] Ea1 - [id number] Total Jt Hip Left: [place] 04/04/2030 [id number] / Implanted: Qty: 1 on 09/16/2020 by Kayden Smith MD at [facility] HIP / [id number] Hip Lnr Vivacit-E [id number] N [id number] Ea1 - [id number] Total Jt Hip Left: [place]LL[place] 05/12/2025 [id number] / Implanted: Qty: 1 on 09/16/2020 by Kayden Smith MD at [facility] HIP / [id number] documented as of this encounter Procedures Procedure Name Priority Date/Time Associated Diagnosis Comme nts GLUCOSE BY METER, Routine 09/20/2020 11:54 Result s for this POCT AM ADDICTION SOCIAL WORKER procedure are i n the results section. GLUCOSE BY METER, Routine 09/20/2020 10:56 Result s for this POCT AM ADDICTION SOCIAL WORKER procedure are i n the results section. GLUCOSE BY METER, Routine 09/20/2020 5:48 Result s for this POCT AM ADDICTION SOCIAL WORKER procedure are i n the results section. COMPLETE BLOOD COUNT Routine 09/20/2020 5:48 Res ults for this WITHOUT DIFFERENTIAL AM ADDICTION SOCIAL WORKER procedu re are in the results section. BASIC METABOLIC PANEL Routine 09/20/2020 5:48 Re sults for this AM ADDICTION SOCIAL WORKER procedure are i n the results section. GLUCOSE BY METER, Routine 09/19/2020 10:10 Result s for this POCT PM ADDICTION SOCIAL WORKER procedure are i n the results section. GLUCOSE BY METER, Routine 09/19/2020 5:07 Result s for this POCT PM ADDICTION SOCIAL WORKER procedure are i n the results section. SARS-COV-2, INFLUENZA STAT 09/19/2020 12:09 Re sults for this A+B, AND/OR RSV PM ADDICTION SOCIAL WORKER procedure ar e in NUCLEIC ACID TESTING the res ults PANEL section. GLUCOSE BY METER, Routine 09/19/2020 11:09 Result s for this POCT AM ADDICTION SOCIAL WORKER procedure are i n the results section. GLUCOSE BY METER, Routine 09/19/2020 6:07 Result s for this POCT AM ADDICTION SOCIAL WORKER procedure are i n the results section. COMPLETE BLOOD COUNT Routine 09/19/2020 5:59 Res ults for this WITHOUT DIFFERENTIAL AM ADDICTION SOCIAL WORKER procedu re are in the results section. BASIC METABOLIC PANEL Routine 09/19/2020 5:59 Re sults for this AM ADDICTION SOCIAL WORKER procedure are i n the results section. GLUCOSE BY METER, Routine 09/18/2020 9:22 Result s for this POCT PM ADDICTION SOCIAL WORKER procedure are i n the results section. GLUCOSE BY METER, Routine 09/18/2020 5:14 Result s for this POCT PM ADDICTION SOCIAL WORKER procedure are i n the results section. TRANSFUSE RED BLOOD Routine 09/18/2020 3:07 CELLS IN UNITS PM ADDICTION SOCIAL WORKER TRANSFUSE RED BLOOD Routine 09/18/2020 12:16 CELLS IN UNITS PM ADDICTION SOCIAL WORKER GLUCOSE BY METER, Routine 09/18/2020 11:41 Result s for this POCT AM ADDICTION SOCIAL WORKER procedure are i n the results section. PREPARE AND HOLD RED Routine 09/18/2020 7:15 Res ults for this BLOOD CELLS IN UNITS AM ADDICTION SOCIAL WORKER procedu re are in - BLOOD BANK the results section. PREPARE AND HOLD RED Routine 09/18/2020 7:13 Res ults for this BLOOD CELLS IN UNITS AM ADDICTION SOCIAL WORKER procedu re are in - BLOOD BANK the results section. COLLECT AND HOLD Routine 09/18/2020 6:33 Results for this GREEN TOP TUBE AM ADDICTION SOCIAL WORKER procedure are in the results section. HEMOGLOBIN Routine 09/18/2020 6:33 S/P revision of Results for this AM ADDICTION SOCIAL WORKER total hip procedure are in Failure of left the results total hip section. arthroplasty, subsequent encounter GLUCOSE BY METER, Routine 09/18/2020 5:58 Result s for this POCT AM ADDICTION SOCIAL WORKER procedure are i n the results section. GLUCOSE BY METER, Routine 09/17/2020 9:00 Result s for this POCT PM ADDICTION SOCIAL WORKER procedure are i n the results section. GLUCOSE BY METER, Routine 09/17/2020 5:33 Result s for this POCT PM ADDICTION SOCIAL WORKER procedure are i n the results section. HEMOGLOBIN Routine 09/17/2020 12:06 Results for this PM ADDICTION SOCIAL WORKER procedure are i n the results section. GLUCOSE BY METER, Routine 09/17/2020 11:25 Result s for this POCT AM ADDICTION SOCIAL WORKER procedure are i n the results section. COMPLETE BLOOD COUNT Routine 09/17/2020 5:35 S/P revision of Results for this WITHOUT DIFFERENTIAL AM ADDICTION SOCIAL WORKER total hip procedure are in Failure of left the results total hip section. arthroplasty, subsequent encounter BASIC METABOLIC PANEL Routine 09/17/2020 5:35 S/P revision of Results for this AM ADDICTION SOCIAL WORKER total hip procedure are in Failure of left the results total hip section. arthroplasty, subsequent encounter GLUCOSE BY METER, Routine 09/17/2020 5:25 Result s for this POCT AM ADDICTION SOCIAL WORKER procedure are i n the results section. GLUCOSE BY METER, Routine 09/16/2020 10:41 Result s for this POCT PM ADDICTION SOCIAL WORKER procedure are i n the results section. GLUCOSE BY METER, Routine 09/16/2020 5:14 Result s for this POCT PM ADDICTION SOCIAL WORKER procedure are i n the results section. XRAY PELVIS 1 OR 2 Routine 09/16/2020 12:49 S/P revision of Re sults for this VIEWS PM ADDICTION SOCIAL WORKER total hip procedure are in Failure of left the results total hip section. arthroplasty, subsequent encounter GLUCOSE BY METER, Routine 09/16/2020 12:35 Result s for this POCT PM ADDICTION SOCIAL WORKER procedure are i n the results section. ARTHROPLASTY HIP 09/16/2020 10:19 Failure of left REVISION AM ADDICTION SOCIAL WORKER total hip arthroplasty with dislocation of hip, initial encounter (HCC) Special Needs *X* Cell Saver,IDDM prefers not first case due to travel TYPE AND SCREEN Routine 09/16/2020 9:25 AM ADDICTION SOCIAL WORKER R esults for this procedure are in the resu lts section. POTASSIUM STAT 09/16/2020 9:25 AM ADDICTION SOCIAL WORKER Resu lts for this procedure are in the resu lts section. GLUCOSE BY METER, POCT Routine 09/16/2020 9:18 AM ADDICTION SOCIAL WORKER Results for this procedure are in the resu lts section. documented in this encounter Results GLUCOSE BY METER, POCT (09/20/2020 11:54 AM ADDICTION SOCIAL WORKER) Pathologist Sig nature Glucose POC 179 (H) 70 - 99 mg/dL [facility] Specimen Blood - Blood specimen (specimen) Performing Organization Address City/State/Zipcode Phone Number [facility] [address] [place] [address] GLUCOSE BY METER, POCT (09/20/2020 10:56 AM ADDICTION SOCIAL WORKER) Pathologist Sig nature Glucose POC 201 (H) 70 - 99 mg/dL [facility] Specimen Blood - Blood specimen (specimen) Performing Organization Address [facility] Phone Number [facility] [address] [place], [place] [address] [phone] GLUCOSE BY METER, POCT (09/20/2020 5:48 AM ADDICTION SOCIAL WORKER) [facility] Glucose POC 88 70 - 99 mg/dL [facility] Specimen Blood - Blood specimen (specimen) Performing Organization Address [facility] Cent[facility] Phone Number [facility] [address] [place], [place] [address] [phone] COMPLETE BLOOD COUNT WITHOUT DIFFERENTIAL (09/20/2020 5:48 AM ADDICTION SOCIAL WORKER) [facility] WBC 14.0 (H) 4.0 - 11.0 K/uL [facility] RBC 3.29 (L) 3.80 - 5.30 M/uL [facility] Hemoglobin 10.4 (L) 11.5 - 15.8 g/dL [facility] Hematocrit 31.9 (L) 35.0 - 45.0 % [facility] MCV 97.0 80.0 - 98.0 fL [facility] MCH 31.6 25.5 - 34.0 pg [facility] MCHC 32.6 31.5 - 36.5 g/dL [facility] RDW-CV 15.1 11.5 - 15.5 % [facility] RDW-SD 51.3 (H) 35.5 - 50.0 fl [facility] Platelet Count 400 140 - 400 K/uL [facility] MPV 10.1 8.5 - 12.0 fL [facility] Specimen Blood - Blood specimen (specimen) Performing Organization Address [facility] Centercode Phone Number [facility] [address] [place] [address] [phone] BASIC METABOLIC PANEL (09/20/2020 5:48 AM ADDICTION SOCIAL WORKER) [facility] Glucose 102 (H) 70 - 100 mg/dL [facility] BUN 40 (H) 6 - 22 mg/dL [facility] Creatinine 1.19 (H) 0.60 - 1.10 [facility] BUN/Creatinine Ratio 33.6 (H) 10.0 - 25.0 [facility] Sodium 140 135 - 145 meq/L [facility] Potassium 3.8 3.5 - 5.3 meq/L [facility] Chloride 105 99 - 110 meq/L [facility] CO2 23 20 - 29 meq/L [facility] Anion Gap with K 16 6 - 20 meq/L [facility] Calcium 9.7 8.5 - 10.5 [facility] mg/dL ALBA Age 89 Years [facility] eGFR Non- 43 (L) >=60 [facility] mL/min/1.73m2 [place] eGFR 52 (L) >=60 [facility] mL/min/1.73m2 [facility] Specimen Blood - Blood specimen (specimen) Performing Organization Address [facility] Phone Number [facility] [address] [place], [place] [address] GLUCOSE BY METER, POCT (09/19/2020 10:10 PM ADDICTION SOCIAL WORKER) Pathologist Sig nature Glucose POC 134 (H) 70 - 99 mg/dL [facility] Specimen Blood - Blood specimen (specimen) Performing Organization Address [facility]ode Phone Number [facility] [address] [place], [place] [address] GLUCOSE BY METER, POCT (09/19/2020 5:07 PM ADDICTION SOCIAL WORKER) Pathologist Sig nature Glucose POC 208 (H) 70 - 99 mg/dL [facility] Specimen Blood - Blood specimen (specimen) Performing Organization Address [facility] Phone Number [facility] [address] [place], [place] [address] SARS-COV-2, INFLUENZA A+B, AND/OR RSV NUCLEIC ACID TESTING PANEL (09/19/2020 12:09 PM ADDICTION SOCIAL WORKER) Pathologist Sig nature SARS-CoV-2 Not Detected Not Detected [facility] Specimen Respiratory - Entire nasopharynx (body s tructure) Narrative Performed At Please read entire report. Results for Influenza A and B or [facility] RSV may also be available depending on which viruses y our provider selected for testing. Your Covid-19 test is negative: 1)Avoiding close contact is s till recommended. 2)Cover your coughs and snee zes. 3)Wash your hands often with soap and wate r for at least 20 seconds or use an alcohol-based support technician containing over 60% alcohol. Avoid touch ing your face. 4)Avoid sharing personal household items, including dishes, cups, utensils, towels, clothing, or bedding. These items should be cleaned thoroughly with soap and water after use. Clean all "high touch" surfaces i n your home daily. 5) Monitor your symptoms. Contact your provider if you are feeling worse. If you have shortness of breath or difficulty breathing, call 911. This assay is for in vitro diagnostic use under FDA Emergency Use Authorization only. Optimal performance of this test requires appropriate specimen collection, storage, and transport to the [facility] site. Detection of SARS-CoV-2 RNA may be affected by sample collection methods, patient factors (eg, presence of symptoms), and/or stage of infection. False-negative results may arise from degradation of v iral RNA during shipping/storage. Results should be interpreted by a trained professiona l in conjunction with the patient s history and clinical signs and symptoms, and epidemiological risk factors. Negative (Not Detected) results do not preclude infect ion with the SARS-CoV-2 virus and should not be the sole b asis of patient treatment/management or public health decis ion. Follow up testing should be performed according to the current CDC recommendations. This test was performed by polymerase chain reaction ( PCR) on the GeneXpert instrument. Performing Organization Address [facility] Centercode Phone Number [facility] [address] [place] [address] [phone] GLUCOSE BY METER, POCT (09/19/2020 11:09 AM ADDICTION SOCIAL WORKER) Pathologist Sig nature Glucose POC 188 (H) 70 - 99 mg/dL [facility] Specimen Blood - Blood specimen (specimen) Performing Organization Address [facility]/Zipcode Phone Number [facility] [address] [place] [address] GLUCOSE BY METER, POCT (09/19/2020 6:07 AM ADDICTION SOCIAL WORKER) Pathologist Sig nature Glucose POC 146 (H) 70 - 99 mg/dL [facility] Specimen Blood - Blood specimen (specimen) Performing Organization Address [facility]/Zipcode Phone Number [facility] [address] [place], [place] [address] [phone] BASIC METABOLIC PANEL WITH GFR (09/19/2020 5:59 AM ADDICTION SOCIAL WORKER) [facility] Glucose 164 (H) 70 - 100 mg/dL [facility] BUN 43 (H) 6 - 22 mg/dL [facility] Creatinine 1.22 (H) 0.60 - 1.10 [facility] mg/[facility] BUN/Creatinine Ratio 35.2 (H) 10.0 - 25.0 [facility] Sodium 138 135 - 145 meq/L [facility] Potassium 4.1 3.5 - 5.3 meq/L [facility] Chloride 108 99 - 110 meq/L [facility] CO2 21 20 - 29 meq/L [facility] Anion Gap with K 13 6 - 20 meq/L [facility] Calcium 8.8 8.5 - 10.5 [facility] mg/dL ALBA Age 89 Years [facility] eGFR Non- 42 (L) >=60 [facility] [place] mL/min/1.73m2 [place] eGFR 50 (L) >=60 [facility] [place] mL/min/1.73m2 [facility] Specimen Blood - Blood specimen (specimen) Performing Organization Address [facility]/Zipcode Phone Number [facility] [address] [place], [place] [phone] COMPLETE BLOOD COUNT WITHOUT DIFFERENTIAL (09/19/2020 5:59 AM ADDICTION SOCIAL WORKER) [facility] WBC 11.4 (H) 4.0 - 11.0 K/uL [facility] RBC 2.90 (L) 3.80 - 5.30 M/uL [facility] Hemoglobin 9.1 (L) 11.5 - 15.8 g/dL [facility] Hematocrit 27.6 (L) 35.0 - 45.0 % [facility] MCV 95.2 80.0 - 98.0 fL [facility] MCH 31.4 25.5 - 34.0 pg [facility] MCHC 33.0 31.5 - 36.5 g/dL [facility] RDW-CV 15.9 (H) 11.5 - 15.5 % [facility] RDW-SD 52.4 (H) 35.5 - 50.0 fl [facility] Platelet Count 253 140 - 400 K/uL [facility] MPV 10.2 8.5 - 12.0 fL [facility] Specimen Blood - Blood specimen (specimen) Performing Organization Address [facility] Centercode Phone Number [facility] [address] [place], [place] [address] GLUCOSE BY METER, POCT (09/18/2020 9:22 PM ADDICTION SOCIAL WORKER) Pathologist Sig nature Glucose POC 234 (H) 70 - 99 mg/dL [facility] Specimen Blood - Blood specimen (specimen) Performing Organization Address [facility] Phone Number [facility] [address] [place] [address] GLUCOSE BY METER, POCT (09/18/2020 5:14 PM ADDICTION SOCIAL WORKER) Pathologist Sig nature Glucose POC 142 (H) 70 - 99 mg/dL [facility] Specimen Blood - Blood specimen (specimen) Performing Organization Address [facility] Phone Number [facility] [address] [place] [address] GLUCOSE BY METER, POCT (09/18/2020 11:41 AM ADDICTION SOCIAL WORKER) Pathologist Sig nature Glucose POC 201 (H) 70 - 99 mg/dL [facility] Specimen Blood - Blood specimen (specimen) Performing Organization Address [facility] Phone Number [facility] [address] [place] [address] PREPARE AND HOLD RED BLOOD CELLS IN UNITS - BLOOD BANK, 2 Units (09/18/2020 7:15 AM ADDICTION SOCIAL WORKER) [facility] Product Code [id number] LAB BPAM Unit Number [id number] LAB Unit ABO Type A LAB Unit Rh Type POS LAB XM Interp Compatible LAB [facility] Dispense Status TR LAB [facility] Blood [id number] LAB Expiration Date [facility] Coding System 594 LAB Product Code RBC, Leukoreduced LAB CPD>AS1 Unit ID [id number] LAB Product Status Transfused LAB Specimen Blood - Blood specimen (specimen) Performing Organization Address [facility] Cent[facility]ode Phone Number LAB PREPARE AND HOLD RED BLOOD CELLS IN UNITS - BLOOD BANK (09/18/2020 7:13 AM ADDICTION SOCIAL WORKER) [facility] BPA Product Code [id number] LAB BPAM Unit Number [id number] LAB Unit ABO Type A LAB Unit Rh Type POS LAB XM Interp Compatible LAB [facility] Dispense Status TR LAB BPA Blood [id number] LAB Expiration Date BPAM Coding System 620 LAB Product Code RBC, Leukoreduced LAB CPD>AS1 Unit ID [id number] LAB Product Status Transfused LAB Specimen Performing Organization Address [facility] Phone Number LAB COLLECT AND HOLD GREEN TOP TUBE (09/18/2020 6:33 AM ADDICTION SOCIAL WORKER) [facility] Collect and Hold Comment: RECEIVED [facility] Specimen [facility] Specimen Blood - Blood specimen (specimen) Performing Organization Address [facility] Phone Number [facility] [address] [place] [phone] HEMOGLOBIN (09/18/2020 6:33 AM ADDICTION SOCIAL WORKER) [facility] Hemoglobin 6.4 (LL) 11.5 - 15.8 g/dL [facility] Specimen Blood - Blood specimen (specimen) Performing Organization Address [facility] Phone Number [facility] [address] [place] [address] GLUCOSE BY METER, POCT (09/18/2020 5:58 AM ADDICTION SOCIAL WORKER) [facility] nature Glucose POC 137 (H) 70 - 99 mg/dL [facility] Specimen Blood - Blood specimen (specimen) Performing Organization Address [facility] Phone Number [facility] [address] [place] [address] GLUCOSE BY METER, POCT (09/17/2020 9:00 PM ADDICTION SOCIAL WORKER) [facility] nature Glucose POC 182 (H) 70 - 99 mg/dL [facility] Specimen Blood - Blood specimen (specimen) Performing Organization Address [facility] Cent[facility]ode Phone Number [facility] [address] [place] [address] GLUCOSE BY METER, POCT (09/17/2020 5:33 PM ADDICTION SOCIAL WORKER) Pathologist Sig nature Glucose POC 214 (H) 70 - 99 mg/dL [facility] Specimen Blood - Blood specimen (specimen) Performing Organization Address [facility] Centercode Phone Number [facility] [address] [place], [place] [phone] HEMOGLOBIN (09/17/2020 12:06 PM ADDICTION SOCIAL WORKER) Pathologist Sig [facility] Hemoglobin 7.9 (L) 11.5 - 15.8 g/dL [facility] Specimen Blood - Blood specimen (specimen) Performing Organization Address [facility] Centercode Phone Number [facility] [address] [place] [phone] [phone] GLUCOSE BY METER, POCT (09/17/2020 11:25 AM ADDICTION SOCIAL WORKER) Pathologist Sig nature Glucose POC 207 (H) 70 - 99 mg/dL [facility] Specimen Blood - Blood specimen (specimen) Performing Organization Address [facility] Centercode Phone Number [facility] [address] [place], [place] [phone] BASIC METABOLIC PANEL (09/17/2020 5:35 AM ADDICTION SOCIAL WORKER) Pathologist Sig [facility] Glucose 214 (H) 70 - 100 mg/dL [facility] BUN 36 (H) 6 - 22 mg/dL [facility] Creatinine 1.34 (H) 0.60 - 1.10 [facility] mg/dL [place] BUN/Creatinine Ratio 26.9 (H) 10.0 - 25.0 [facility] Sodium 139 135 - 145 meq/L [facility] Potassium 4.5 3.5 - 5.3 meq/L [facility] Chloride 108 99 - 110 meq/L [facility] CO2 23 20 - 29 meq/L [facility] Anion Gap with K 13 6 - 20 meq/L [facility] Calcium 8.1 (L) 8.5 - 10.5 [facility] mg/dL ALBA Age 89 Years [facility] eGFR Non- 37 (L) >=60 [facility] mL/min/1.73m2 [facility] eGFR 45 (L) >=60 [facility] mL/min/1.73m2 [facility] Specimen Blood - Blood specimen (specimen) Performing Organization Address [facility] Centercode Phone Number [facility] [address] [place], [place] [phone] COMPLETE BLOOD COUNT WITHOUT DIFFERENTIAL (09/17/2020 5:35 AM ADDICTION SOCIAL WORKER) Pathologist [facility] WBC 11.3 (H) 4.0 - 11.0 K/uL [facility] RBC 2.21 (L) 3.80 - 5.30 M/uL [facility] Hemoglobin 7.2 (L) 11.5 - 15.8 g/dL [facility] Hematocrit 22.1 (L) 35.0 - 45.0 % [facility] MCV 100.0 (H) 80.0 - 98.0 fL [facility] MCH 32.6 25.5 - 34.0 pg [facility] MCHC 32.6 31.5 - 36.5 g/dL [facility] RDW-CV 12.3 11.5 - 15.5 % [facility] RDW-SD 42.3 35.5 - 50.0 fl [facility] Platelet Count 273 140 - 400 K/uL [facility] MPV 9.8 8.5 - 12.0 fL [facility] Specimen Blood - Blood specimen (specimen) Performing Organization Address [facility] Phone Number [facility] [address] [place], [place] [phone] GLUCOSE BY METER, POCT (09/17/2020 5:25 AM ADDICTION SOCIAL WORKER) Pathologist [facility] [employer] Glucose POC 191 (H) 70 - 99 mg/dL [facility] Specimen Blood - Blood specimen (specimen) Performing Organization Address [facility] Centercode Phone Number [facility] [address] [place] [phone] GLUCOSE BY METER, POCT (09/16/2020 10:41 PM ADDICTION SOCIAL WORKER) Pathologist [facility] [employer] Glucose POC 266 (H) 70 - 99 mg/dL [facility] Specimen Blood - Blood specimen (specimen) Performing Organization Address [facility] Centercode Phone Number [facility] [address] [place] [phone] GLUCOSE BY METER, POCT (09/16/2020 5:14 PM ADDICTION SOCIAL WORKER) Pathologist Sig [facility] Glucose POC 305 (H) 70 - 99 mg/dL [facility] Specimen Blood - Blood specimen (specimen) Performing Organization Address City/State/Zipcode Phone Number [facility] [address] [place] [phone] XRAY PELVIS 1 OR 2 VIEWS (09/16/2020 12:49 PM ADDICTION SOCIAL WORKER) Specimen Narrative Performed At [facility] Patient Name: NARA PARADA Date of : 1930 Procedure: XRAY PELVIS 1 OR 2 VIEWS Date of Service: 09/16/2020 EXAM: XRAY PELVIS 1 OR 2 VIEWS INDICATION: ICD-10 Z96.649 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 Postope rative changes seen in the surrounding soft tissues. 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 At le ast moderate joint space narrowing remains in the right hip . 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 Postoperative changes seen in the surrounding soft tissues. 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 At l east moderate joint space narrowing remains in the right hip. Finalized by: Hank Ballesteros MD on 1:16 PM ADDICTION SOCIAL WORKER Patient/Procedure Information: [facility] MRN/BEN: [id number] Order Number: [id number] Accession Number: [id number] Ordering Provider: YOBANI MATHUR Authorizing Provider: YOBANI MATHUR Performing Organization Address [facility]ercopr Phone Number [phone] GLUCOSE BY METER, POCT (09/16/2020 12:35 PM ADDICTION SOCIAL WORKER) Pathologist Sig nature Glucose POC 134 (H) 70 - 99 mg/dL [facility] Specimen Blood - Blood specimen (specimen) Performing Organization Address [facility] Phone Number [facility] [address] [place] [phone] POTASSIUM (09/16/2020 9:25 AM ADDICTION SOCIAL WORKER) Pathologist Sig nature Potassium 4.4 3.5 - 5.3 meq/L [facility] Specimen Blood - Blood specimen (specimen) Performing Organization Address [facility] Phone Number [facility] [address] [place], [place] [phone] TYPE AND SCREEN (09/16/2020 9:25 AM ADDICTION SOCIAL WORKER) Pathologist Sig nature ABO Type A [facility] Rh Type Positive [facility] Antibody Screen Negative [facility] Comment: [facility] Allogenic Red Cells Available Date needed: 09/16/2020 Expiration Date 09/19/2020 23:59 [facility] Specimen Blood - Blood specimen (specimen) Performing Organization Address [facility] Phone Number [facility] [address] [place] [phone] GLUCOSE BY METER, POCT (09/16/2020 9:18 AM ADDICTION SOCIAL WORKER) Pathologist Sig nature Glucose POC 148 (H) 70 - 99 mg/dL [facility] Specimen Blood - Blood specimen (specimen) Performing Organization Address City/State/Zipcode Phone Number [facility] [address] [place], [place] [address] [phone] documented in this encounter Visit Diagnoses Diagnosis S/P revision of total hip - Primary 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 Pediatric Patients 0 - 3 months: Maximum of 60 mg/kg/24 hours of acetaminophen. Pediatric Patients older than 3 months: Maximum of 75 mg/kg/24 hours of acetaminophen (Never exceeding 4 grams/day)., Given 09/20/2020 5:49 AM ADDICTION SOCIAL WORKER 650 mg Given 09/19/2020 11:36 PM ADDICTION SOCIAL WORKER 650 mg aspirin chewable tablet 81 mg Given 09/20/2020 9:30 AM ADDICTION SOCIAL WORKER 81 mg 81 mg, Oral, Two times a day, First dose on Wed09/16/20 at 2100, Until Discontinued Given 09/19/2020 10:07 PM ADDICTION SOCIAL WORKER 81 mg Given 09/19/2020 8:38 AM ADDICTION SOCIAL WORKER 81 mg benzocaine-menthol (CEPACOL w/ Given 09/20/2020 9:38 AM ADDICTION SOCIAL WORKER 1 l ozenge BENZOCAINE) lozenge 1 lozenge 1 lozenge, Mouth/Throat, Every four hours prn, Starting Wed09/16/20 at 1402, Until Discontinued, sore throat, other (Specify), throat irritation, Post - Op, Exception: Patients with dysphagia, radiation mucositis/esophagitis or without a gag reflex., bisacodyl (DULCOLAX) enteric coated tablet 5 Given 11:43 PM ADDICTION SOCIAL WORKER 5 mg mg 5 mg, Oral, Two times a day prn, Starting Wed09/16/20 at 1402, Until Discontinued, constipation, Post - Op, SECOND choice or per patient preference, carbohydrate 15 g 15 g, Oral, PRN per parameter, Starting 09/16/20 at 1402, Until Discontinued, low blood glucose, Give 15 grams of carb ohydrate if blood glucose is less than 70 mg/dL, patient is responsive and able to take food or oral meds. Recheck blood glucose in 15 minutes. Repeat 1 time and call MD. If recheck is greater than 70 mg/dL and able to take food or oral meds, give 15 gram carbohydrate if meal or snack due in more than an hour. Serve me al or snack if due in less than 1 hour. , See hypoglycemia treatment on cardex. S ources of 15 grams carbohydrate: a. 4 oz of fruit juice or b. 4 oz of soda pop (NOT diet) or c. 1 tablespoon of honey, cyanocobalamin (vitamin B-12) tablet 100 Given 09/20/2020 9:29 AM ADDICTION SOCIAL WORKER 100 mcg mcg 100 mcg, Oral, DAILY, First dose on Wed09/17/20 at 0900, Until Discontinued Given 09/19/2020 8:38 AM ADDICTION SOCIAL WORKER 100 mcg Given 09/18/2020 8:05 AM ADDICTION SOCIAL WORKER 100 mcg dextrose 50% IV solution 50 mL 50 mL (25 g), IV, PRN per parameter, Starting Mon 09/16 at 1402, Until Discontinued, low blood glucose, 50 mL, Give if blood glucose is less than 70 mg/dL, patient is unresponsive or NPO, a nd has IV access. Recheck blood glucose in 15 minutes and call MD. Repeat dose if r echeck less than 70 mg/dL and call MD. If recheck is greater than 70 mg/dL and abl e to take food or oral meds, give 15 gram carbohydrate if meal or snack due in mor e than an hour. Serve meal or snack if due in less than 1 hour. See hypoglycemia treatment on car dex., dextrose chewable tablet 16 g 16 g (4 tablet), Oral, PRN per parameter, Starting 09/16/20 at 1402, Until Discontinued, low blood glucose, Chew before swallowin g. Give 15 gram of carbohydrate if blood glucose is less th an 70 mg/dL, patient is responsive and able to take food or oral meds. Recheck blood glucose in 15 minutes. Repeat 15 gram carbohydrate if recheck is less than 70 mg/dL and call MD. If recheck is greater than 70 mg/dL and able to take food or o ral meds, give 15 gram carbohydrate if meal or snack due in more than an hour. Serve meal or snack if due in less than 1 hour. See hypoglycemia treatment on cardex. (S ources of 15 gram carbohydrate: 4 oz fruit juice or 4 oz soda pop (NOT diet) or 1 t ablespoonful honey or 4 glucose tablets)., diphenhydrAMINE (BENADRYL) injection solution Given 10:07 PM ADDICTION SOCIAL WORKER 25 mg 25 mg 25 mg, IV, Every four hours prn, Starting Wed09/16/20 at 1402, Until Discontinued, itching, 0.5 mL, Post - Op, May repeat 4 times If preference is to further dilute for IV administration: First draw up patient-specific dose, then dilute to 10 mL with 0.9% sodium chloride., fenofibrate (LOFIBRA) tablet 160 mg Given 09/19/2020 10:07 PM ADDICTION SOCIAL WORKER 160 mg 160 mg, Oral, Bedtime, First dose on Wed09/16/20 at 2100, Until Discontinued Given 09/18/2020 9:18 PM ADDICTION SOCIAL WORKER 160 mg Given 09/17/2020 8:50 PM ADDICTION SOCIAL WORKER 160 mg FLUoxetine (PROzac) capsule 20 mg Given 09/20/2020 9:30 AM ADDICTION SOCIAL WORKER 20 mg 20 mg, Oral, DAILY, First dose on Wed09/17/20 at 0900, Until Discontinued Given 09/19/2020 8:38 AM ADDICTION SOCIAL WORKER 20 mg Given 09/18/2020 8:05 AM ADDICTION SOCIAL WORKER 20 mg glucagon for injection 1 mg vial 1 mg 1 mg, Intramuscular, PRN per parameter, Starting Wed at 1402, Until Discontinued, low blood glucose, Give if blood glucose less than 70 mg/dL, patient is unresponsive or NPO, and has no IV ac cess. Establish IV access. Recheck blood glucose in 15 minutes and call MD. If r echeck is greater than 70 mg/dL and able to take food or oral meds, give 15 gram car bohydrate if meal or snack due in more than an hour. Serve meals or snack if due in less than 1 ho ur. See hypoglycemia treatment on cardex. Reconstitute vial with 1 mL of sterile water for injection for reconstitution for a final concentra tion of 1 mg/mL. Shake vial gently. Use immediately and discard unused portion. Reconstitute with 1 mL of sterile water for injection to yield 1 mg/mL. Shake vial gently. Use immediately and discard unused portion., hydroCHLOROthiazide tablet 25 mg Given 09/20/2020 9:30 AM ADDICTION SOCIAL WORKER 25 mg 25 mg, Oral, Every morning, First dose on Wed09/17/20 at 0900, Until Discontinued, Hold for SBP less than 100, Given 09/19/2020 8:38 AM ADDICTION SOCIAL WORKER 25 mg Given 09/18/2020 8:06 AM ADDICTION SOCIAL WORKER 25 mg insulin aspart (NovoLOG) SQ correction Given 09/20/2020 12:01 PM ADDICTION SOCIAL WORKER 2 Units scale (Adult) 2-12 Units, Subcutaneous, Three times a day, First dose on Wed09/17/20 at 1130, Until Discontinued, 0.12 mL, Give this dose whether patient is eating or patient is NPO MEDIUM DOSE insulin aspart (NovoLOG) subcutaneous correction scale Premeal Blood Glucose = Insulin Dose 150-199 2 units 200-249 4 units 250-299 7 units 300-349 10 units Over 349 12 units, Given 09/19/2020 6:24 PM ADDICTION SOCIAL WORKER 4 Units Given 09/19/2020 11:16 AM ADDICTION SOCIAL WORKER 2 Units insulin detemir (LEVEMIR) SQ injection Given 09/19/2020 10:07 PM ADDICTION SOCIAL WORKER 15 Units 15 Units, Subcutaneous, Bedtime, First dose on Wed09/17/20 at 2100, Until Discontinued, 0.15 mL, Formulary Substitute for Levemir Insulin Pen Blood Glucose greater than or equal to 100 mg/dL - Do Not Hold If Blood Glucose LESS than 100 mg/dL, if patient changed to NPO, or if tube feedings stopped - Immediately notify provider before administration., Given 09/18/2020 9:19 PM ADDICTION SOCIAL WORKER 15 Units Given 09/17/2020 9:29 PM ADDICTION SOCIAL WORKER 15 Units lisinopril (PRINIVIL, ZESTRIL) tablet 40 mg Given 09/20/2020 9:30 AM ADDICTION SOCIAL WORKER 40 mg 40 mg, Oral, DAILY, First dose on Wed09/17/20 at 0900, Until Discontinued, Hold for SBP less than 100, Given 09/19/2020 8:38 AM ADDICTION SOCIAL WORKER 40 mg Given 09/18/2020 8:06 AM ADDICTION SOCIAL WORKER 40 mg omeprazole (priLOSEC) capsule 20 mg Given 09/20/2020 5:49 AM ADDICTION SOCIAL WORKER 20 mg 20 mg, Oral, DAILY, First dose on Wed09/17/20 at 0700, Until Discontinued, Swallow cap whole. Do not crush, chew or open., Given 09/19/2020 6:26 AM ADDICTION SOCIAL WORKER 20 mg Given 09/18/2020 6:08 AM ADDICTION SOCIAL WORKER 20 mg oxybutynin (DITROPAN-XL) SR tablet (24 hr) 10 Given 10:07 PM ADDICTION SOCIAL WORKER 10 mg mg 10 mg, Oral, Bedtime, First dose on Wed09/16/20 at 2100, Until Discontinued, Tablet should not be crushed or chewed., Given 09/18/2020 9:18 PM ADDICTION SOCIAL WORKER 10 mg Given 09/17/2020 8:50 PM ADDICTION SOCIAL WORKER 10 mg oxyCODONE (OXY-IR) tablet 5-10 mg Given 09/20/2020 1:50 AM ADDICTION SOCIAL WORKER 5 mg 5-10 mg, Oral, Every three hours prn, Starting Wed09/16/20 at 1402, Until Discontinued, moderate pain, severe pain, Post - Op, For patients with moderate pain, pain rating of 1-5, give oxyCODONE 5 mg PO every 3 hours PRN. For patients with severe pain, pain rating of 6 or greater, give oxyCODONE 10 mg PO every 4 hours PRN. May administer less potent prescribed medication based on patient request per the organization's medication management policy., Given 09/19/2020 8:38 AM ADDICTION SOCIAL WORKER 5 mg Given 09/19/2020 4:58 AM ADDICTION SOCIAL WORKER 10 mg polyethylene glycol (MIRALAX) packet 1 p acket 1 packet, Oral, One time a day prn, Starting Wed at 1020, Until Discontinued, constipation, Post - Op, H old if 2 loose stools occur in the last 24 hours., propranolol (INDERAL LA) extended release Given 09/20/2020 9:29 AM ADDICTION SOCIAL WORKER 80 mg capsule 80 mg 80 mg, Oral, DAILY, First dose on Wed09/17/20 at 0900, Until Discontinued, Swallow capsule whole. Do not crush, chew or open., Given 09/19/2020 8:38 AM ADDICTION SOCIAL WORKER 80 mg Given 09/18/2020 8:06 AM ADDICTION SOCIAL WORKER 80 mg senna-docusate sodium (SENOKOT-S;PERICOL PAUL) tablet 2 tablet 2 tablet, Oral, One time a day prn, Starting Wed at 1010, Until Discontinued, constipation, Post - Op, H old if 2 loose stools occur in the last 24 hours., sodium chloride 0.9% flush (adult) 10 mL Given 09/20/2020 9:30 AM ADDICTION SOCIAL WORKER 10 mL 10 mL, IV, Two times a day and prn, First dose on Wed09/16/20 at 2100, Until Discontinued, 10 mL, Post - Op, Flush IV line as scheduled and as often as necessary before and after meds., Given 09/19/2020 10:07 PM ADDICTION SOCIAL WORKER 10 mL Given 09/19/2020 8:39 AM ADDICTION SOCIAL WORKER 10 mL vitamin D3 (cholecalciferol) tablet 25 m cg Given 09/20/2020 9:30 AM ADDICTION SOCIAL WORKER 25 mcg 25 mcg, Oral, DAILY, First dose on Wed09/17/20 at 0900, Until Discontinued Given 09/19/2020 8:38 AM ADDICTION SOCIAL WORKER 25 mcg Given 09/18/2020 8:06 AM ADDICTION SOCIAL WORKER 25 mcg Medication Order MAR Action Action Date Dose Rate Site ceFAZolin (ANCEF) 2000 mg/20 mL Given 09/17/2020 11:26 AM ADDICTION SOCIAL WORKER 2, 000 mg sterile water IV syringe 2,000 mg, IV, Every eight hours, 3 doses, First dose on Wed09/16/20 at 1900, Last dose on Wed09/17/20 at 1100, 20 mL, PACU - Continue Post-Op, Administer as IV push over 4 minutes., Given 09/17/2020 3:48 AM ADDICTION SOCIAL WORKER 2,000 mg Given 09/16/2020 6:39 PM ADDICTION SOCIAL WORKER 2,000 mg diphenhydrAMINE (BENADRYL) injection solution Given 7:52 AM ADDICTION SOCIAL WORKER 25 mg 25 mg 25 mg, IV, Pre-med, 1 dose, Starting Wed09/18/20 at 0710, Until Wed09/18/20 at 0752, 0.5 mL, FOR BLOOD ADMINISTRATION ONLY Administer prior to blood transfusion If preference is to further dilute for IV administration: First draw up patient-specific dose, then dilute to 10 mL with 0.9% sodium chloride., furosemide (LASIX) injection solution 20 mg Given 09/19/2020 11:39 AM ADDICTION SOCIAL WORKER 20 mg 20 mg, IV, One time, 1 dose, Jaqueline 09/19/20 at 1225, 2 mL, If preference is to further dilute for IV administration: First draw up patient-specific dose, then dilute to 10 mL with 0.9% sodium chloride. Administer SLOW IV push., gabapentin (NEURONTIN) capsule 600 mg Given 09/16/2020 10:37 AM ADDICTION SOCIAL WORKER 600 mg 600 mg, Oral, Pre-op, 1 dose, 09/16/20 at 0915, Pre - Op, 1 dose prior to surgery, insulin aspart (NovoLOG) SQ correction Given 09/17/2020 5:39 AM ADDICTION SOCIAL WORKER 2 Units scale (Adult) 2-8 Units, Subcutaneous, Three times a day, First dose on Wed09/16/20 at 1730, Until Discontinued, 0.08 mL, Give this dose whether patient is eating or patient is NPO LOW DOSE insulin aspart (NovoLOG) subcutaneous correction scale Premeal Blood Glucose = Insulin Dose 150-199 2 units 200-249 3 units 250-299 5 units 300-349 7 units Over 349 8 units, Given 09/16/2020 6:38 PM ADDICTION SOCIAL WORKER 7 Units lactated ringers IV solution New Bag 09/16/2020 12:04 PM ADDICTION SOCIAL WORKER IV, at 25 mL/hr, Continuous, Starting Wed09/16/20 at 1015, Until Wed09/16/20 at 1228, 1,000 mL, Pre - Op Now New Bag/Tubing 09/16/2020 10:37 AM ADDICTION SOCIAL WORKER 25 mL/hr lactated ringers IV solution Already Infusing 09/16/2020 12:29 PM ADDICTION SOCIAL WORKER 125 mL/hr IV, at 125 mL/hr, Continuous, Starting Wed09/16/20 at 1320, Until Wed09/16/20 at 1344, 1,000 mL, PACU, TKO current fluids if patient is going to Day Unit / ARU and tolerating PO fluids without nausea., polyethylene glycol (MIRALAX) packet 1 Given 09/18/2020 8:06 AM ADDICTION SOCIAL WORKER 1 packet packet 1 packet, Oral, Every twelve hours with food, First dose on Wed09/16/20 at 2000, Until Discontinued, Post - Op, Hold if 2 loose stools occur in the last 24 hours., Given 09/17/2020 8:55 AM ADDICTION SOCIAL WORKER 1 packet Given 09/16/2020 10:45 PM ADDICTION SOCIAL WORKER 1 packet senna-docusate sodium Given 09/18/2020 8:06 AM ADDICTION SOCIAL WORKER 2 tablets (SENOKOT-S;PERICOLACE) tablet 2 tablet 2 tablet, Oral, Two times a day, First dose on Wed09/16/20 at 2100, Until Discontinued, Post - Op, Hold if 2 loose stools occur in the last 24 hours., Given 09/17/2020 8:50 PM ADDICTION SOCIAL WORKER 2 tablets Given 09/17/2020 8:55 AM ADDICTION SOCIAL WORKER 2 tablets sodium chloride 0.9% IV New Bag/Tubing 09/18/2020 7:45 AM ADDICTION SOCIAL WORKER 500 mL 30 mL/hr solution flush bag IV, Continuous, Starting Wed09/18/20 at 0815, Until Jaqueline 09/19/20 at 0814, 1,000 mL, IV line carrier for line flush with blood product infusion., sodium chloride 0.9% IV solution New Bag 09/17/2020 6:58 AM ADDICTION SOCIAL WORKER 125 mL/hr IV, at 125 mL/hr, Continuous, Starting Wed09/16/20 at 1405, Until Wed09/17/20 at 1518, 1,000 mL, Post - Op New Bag 09/16/2020 10:44 PM ADDICTION SOCIAL WORKER 125 mL/hr New Bag/Tubing 09/16/2020 2:04 PM ADDICTION SOCIAL WORKER 125 mL/hr documented in this encounter
--- NOTE | 2020-09-23 17:21 | PCM.PN ---
- General Info Date of Service: 09/23/20 Admission Dx/Problem (Free Text): Admission Diagnosis/Problem Admission Diagnosis/Problem History of arthroplasty of left hip, repair of previous hip replacement Subjective Update: Patient has been having some increased confusion especially in the evening. Functional Status: Reports: Pain Controlled - Review of Systems General: Reports: Weakness HEENT: Reports: No Symptoms Pulmonary: Reports: No Symptoms Cardiovascular: Reports: No Symptoms Gastrointestinal: Reports: No Symptoms Genitourinary: Reports: Frequency Musculoskeletal: Reports: Joint Swelling (left hip) Neurological: Reports: Confusion Psychiatric: Reports: Confusion - Patient Data Vitals - Most Recent: Last Vital Signs Temp 98.3 F 09/23/20 08:00 Pulse 66 09/23/20 08:00 Resp 18 09/23/20 08:00 BP 153/68 H 09/23/20 08:00 Pulse Ox 96 09/23/20 08:00 Weight - Most Recent: 163 lb 9.6 oz I&O - Last 24 Hours: Intake & Output 09/23/20 09/23/20 09/23/20 06:59 14:59 22:59 Intake Total 360 Balance 360 Lab Results Last 24 Hours: Laboratory Results - last 24 hr 09/22/20 09/22/20 09/22/20 Range/Units 11:27 18:13 19:49 WBC (4.0-10.2) K/uL RBC (3.77-5.09) M/uL Hgb (11.7-15.5) g/dL Hct (34.0-46.0) % MCV (84.0-98.0) fL MCH (28.2-33.3) pg MCHC (31.7-36.0) g/dL RDW (11.2-14.1) % Plt Count (150-350) K/uL Neut % (Auto) (45.0-80.0) % Lymph % (Auto) (10.0-50.0) % Harmon % (Auto) (2.0-14.0) % Eos % (Auto) (0.0-5.0) % Baso % (Auto) (0.0-2.0) % Neut # (Auto) (1.40-7.00) K/uL Lymph # (Auto) (0.50-3.50) K/uL Harmon # (Auto) (0.00-1.00) K/uL Eos # (Auto) (0.00-0.50) K/uL Baso # (Auto) (0.00-0.20) K/uL Sodium (136-145) mmol/L Potassium (3.5-5.1) mmol/L Chloride (98-107) mmol/L Carbon Dioxide (21.0-32.0) mmol/L BUN (7-18) mg/dL Creatinine (0.51-1.17) mg/dL Est Cr Clr Drug Dosing mL/min Estimated GFR (MDRD) mL/min Glucose (70-99) mg/dL POC Glucose 154 H 300 H* 206 H (65-110) mg/dl Calcium (8.5-10.1) mg/dL Total Bilirubin (0.2-1.0) mg/dL AST (15-37) U/L ALT (12-78) U/L Alkaline Phosphatase (46-116) IU/L Total Protein (6.4-8.2) g/dL Albumin (3.4-5.0) g/dL Specimen Type Urine Color Urine Appearance Urine pH (5.0-9.0) Ur Specific [place] (1.005-1.030) Urine Protein (NEGATIVE) mg/dL Urine Glucose (UA) (NEGATIVE) mg/dL Urine Ketones (NEGATIVE) mg/dL Urine Occult Blood (NEGATIVE) Urine Nitrite (NEGATIVE) Urine Bilirubin (NEGATIVE) Urine Urobilinogen (0.2-1.0) E.U./dL Ur Leukocyte Esterase (NEGATIVE) Urine RBC /HPF Urine WBC /HPF Ur Epithelial Cells /LPF Urine Bacteria (NONE TO FEW) /HPF Urinalysis Comment 09/23/20 09/23/20 09/23/20 Range/Units 04:32 07:13 07:13 WBC 7.3 (4.0-10.2) K/uL RBC 2.83 L (3.77-5.09) M/uL Hgb 9.1 L D (11.7-15.5) g/dL Hct 27.8 L (34.0-46.0) % MCV 98.2 H (84.0-98.0) fL MCH 32.2 (28.2-33.3) pg MCHC 32.7 (31.7-36.0) g/dL RDW 14.1 (11.2-14.1) % Plt Count 399 H (150-350) K/uL Neut % (Auto) 64.7 (45.0-80.0) % Lymph % (Auto) 18.9 (10.0-50.0) % Harmon % (Auto) 8.5 (2.0-14.0) % Eos % (Auto) 7.5 H (0.0-5.0) % Baso % (Auto) 0.4 (0.0-2.0) % Neut # (Auto) 4.73 (1.40-7.00) K/uL Lymph # (Auto) 1.38 (0.50-3.50) K/uL Harmon # (Auto) 0.62 (0.00-1.00) K/uL Eos # (Auto) 0.55 H (0.00-0.50) K/uL Baso # (Auto) 0.03 (0.00-0.20) K/uL Sodium 143 (136-145) mmol/L Potassium 3.7 (3.5-5.1) mmol/L Chloride 107 (98-107) mmol/L Carbon Dioxide 27.2 (21.0-32.0) mmol/L BUN 34 H (7-18) mg/dL Creatinine 0.99 (0.51-1.17) mg/dL Est Cr Clr Drug Dosing 36.06 mL/min Estimated GFR (MDRD) 53 mL/min Glucose 86 (70-99) mg/dL POC Glucose (65-110) mg/dl Calcium 9.1 (8.5-10.1) mg/dL Total Bilirubin 0.6 (0.2-1.0) mg/dL AST 21 (15-37) U/L ALT 15 (12-78) U/L Alkaline Phosphatase 110 (46-116) IU/L Total Protein 6.4 (6.4-8.2) g/dL Albumin 2.6 L (3.4-5.0) g/dL Specimen Type Urincc Urine Color Yellow Urine Appearance Clear Urine pH 6.0 (5.0-9.0) Ur Specific [place] 1.020 (1.005-1.030) Urine Protein 30 H (NEGATIVE) mg/dL Urine Glucose (UA) Negative (NEGATIVE) mg/dL Urine Ketones Negative (NEGATIVE) mg/dL Urine Occult Blood Negative (NEGATIVE) Urine Nitrite Negative (NEGATIVE) Urine Bilirubin Negative (NEGATIVE) Urine Urobilinogen 0.2 (0.2-1.0) E.U./dL Ur Leukocyte Esterase Negative (NEGATIVE) Urine RBC 0-5 /HPF Urine WBC 0-5 /HPF Ur Epithelial Cells Occasional /LPF Urine Bacteria Few (NONE TO FEW) /HPF Urinalysis Comment 09/23/20 09/23/20 09/23/20 Range/Units 07:13 12:02 16:58 WBC (4.0-10.2) K/uL RBC (3.77-5.09) M/uL Hgb (11.7-15.5) g/dL Hct (34.0-46.0) % MCV (84.0-98.0) fL MCH (28.2-33.3) pg MCHC (31.7-36.0) g/dL RDW (11.2-14.1) % Plt Count (150-350) K/uL Neut % (Auto) (45.0-80.0) % Lymph % (Auto) (10.0-50.0) % Harmon % (Auto) (2.0-14.0) % Eos % (Auto) (0.0-5.0) % Baso % (Auto) (0.0-2.0) % Neut # (Auto) (1.40-7.00) K/uL Lymph # (Auto) (0.50-3.50) K/uL Harmon # (Auto) (0.00-1.00) K/uL Eos # (Auto) (0.00-0.50) K/uL Baso # (Auto) (0.00-0.20) K/uL Sodium (136-145) mmol/L Potassium (3.5-5.1) mmol/L Chloride (98-107) mmol/L Carbon Dioxide (21.0-32.0) mmol/L BUN (7-18) mg/dL Creatinine (0.51-1.17) mg/dL Est Cr Clr Drug Dosing mL/min Estimated GFR (MDRD) mL/min Glucose (70-99) mg/dL POC Glucose 91 92 213 H (65-110) mg/dl Calcium (8.5-10.1) mg/dL Total Bilirubin (0.2-1.0) mg/dL AST (15-37) U/L ALT (12-78) U/L Alkaline Phosphatase (46-116) IU/L Total Protein (6.4-8.2) g/dL Albumin (3.4-5.0) g/dL Specimen Type Urine Color Urine Appearance Urine pH (5.0-9.0) Ur Specific [place] (1.005-1.030) Urine Protein (NEGATIVE) mg/dL Urine Glucose (UA) (NEGATIVE) mg/dL Urine Ketones (NEGATIVE) mg/dL Urine Occult Blood (NEGATIVE) Urine Nitrite (NEGATIVE) Urine Bilirubin (NEGATIVE) Urine Urobilinogen (0.2-1.0) E.U./dL Ur Leukocyte Esterase (NEGATIVE) Urine RBC /HPF Urine WBC /HPF Ur Epithelial Cells /LPF Urine Bacteria (NONE TO FEW) /HPF Urinalysis Comment Med Orders - Current: Current Medications Acetaminophen (Tylenol Arthritis Pain) 650 mg PO Q8H PRN PRN Reason: Pain Last Admin: 09/23/20 07:36 Dose: 650 mg Documented by: Aspirin (Aspirin) 81 mg PO BID [facility] Stop: 10/28/20 18:01 Last Admin: 09/23/20 07:35 Dose: 81 mg Documented by: Aspirin (Aspirin) 81 mg PO DAILY [facility] Cholecalciferol (Vitamin D3) 25 mcg PO DAILY [facility] Last Admin: 09/23/20 07:35 Dose: 25 mcg Documented by: Cyanocobalamin (Vitamin B12) 100 mcg PO DAILY [facility] Last Admin: 09/23/20 07:35 Dose: 100 mcg Documented by: Fenofibrate (Fenofibrate) 134 mg PO BEDTIME [facility] Last Admin: 09/22/20 19:45 Dose: 134 mg Documented by: Fluoxetine HCl (Prozac) 20 mg PO DAILY [facility] Last Admin: 09/23/20 07:36 Dose: 20 mg Documented by: Hydrochlorothiazide (Hydrochlorothiazide) 25 mg PO DAILY [facility] Last Admin: 09/23/20 07:37 Dose: 25 mg Documented by: Lisinopril (Prinivil) 40 mg PO DAILY [facility] Last Admin: 09/23/20 07:37 Dose: 40 mg Documented by: Multivitamins/Minerals/Vitamin C (Tab-A-Kacie) 1 tab PO DAILY [facility] Last Admin: 09/23/20 07:35 Dose: 1 tab Documented by: Nitroglycerin (Nitrostat) 0.4 mg SL ASDIRECTED PRN PRN Reason: CHEST DISCOMFORT Omeprazole (Omeprazole) 20 mg PO ACBREAKFAST [facility] Last Admin: 09/23/20 07:36 Dose: 20 mg Documented by: Oxybutynin Chloride (Oxybutynin Er) 10 mg PO DAILY [facility] Last Admin: 09/23/20 07:35 Dose: 10 mg Documented by: Oxycodone HCl (Oxycodone) 5 mg PO Q3H PRN PRN Reason: Pain Levemir Insulin Pen 100 Unit/Ml Own Med 0 each SUBCUT BEDTIME [facility] Last Admin: 09/22/20 19:51 Dose: 20 each Documented by: Novolog Insulin Pen 100unit/Ml Own Med 0 each SUBCUT TID [facility] Last Admin: 09/23/20 12:07 Dose: Not Given Documented by: Propranolol HCl (Inderal La) 80 mg PO DAILY [facility] Last Admin: 09/23/20 07:37 Dose: 80 mg Documented by: Senna/Docusate Sodium (Senna Plus) 2 tab PO DAILY [facility] Last Admin: 09/23/20 07:35 Dose: 2 tab Documented by: Vit C/Vit E/Zinc/Copper/Lutein (Ocuvite Lutein) 1 each PO BID [facility] Discontinued Medications Vit C/Vit E/Zinc/Copper/Lutein (Ocuvite Lutein) 1 each PO DAILY [facility] Last Admin: 09/23/20 07:36 Dose: 1 each Documented by: - Exam Quality Assessment: DVT Prophylaxis General: Alert, Cooperative, No Acute Distress HEENT: Pupils Equal Neck: Supple Lungs: Clear to Auscultation, Normal Respiratory Effort Cardiovascular: Regular Rate, Regular Rhythm, Murmurs GI/Abdominal Exam: Normal Bowel Sounds, Soft, Non-Tender Back Exam: Normal Inspection Extremities: Normal Inspection, Pedal Edema (edema noted to left leg s/p surgery, dressing dry and intact to left hip) Peripheral Pulses: 1+: Dorsalis Pedis (L), Dorsalis Pedis (R) Skin: Warm, Dry, Intact, Ecchymosis Wound/Incisions: Healing Well, Dressing Dry and Intact, No Drainage, Erythema Improving Neurological: No New Focal Deficit Psy/Mental Status: Normal Affect, Normal Mood (confused to place at times) - Patient Data Lab Results Last 24 hrs: Laboratory Results - last 24 hr 09/22/20 09/22/20 09/22/20 Range/Units 11:27 18:13 19:49 WBC (4.0-10.2) K/uL RBC (3.77-5.09) M/uL Hgb (11.7-15.5) g/dL Hct (34.0-46.0) % MCV (84.0-98.0) fL MCH (28.2-33.3) pg MCHC (31.7-36.0) g/dL RDW (11.2-14.1) % Plt Count (150-350) K/uL Neut % (Auto) (45.0-80.0) % Lymph % (Auto) (10.0-50.0) % Harmon % (Auto) (2.0-14.0) % Eos % (Auto) (0.0-5.0) % Baso % (Auto) (0.0-2.0) % Neut # (Auto) (1.40-7.00) K/uL Lymph # (Auto) (0.50-3.50) K/uL Harmon # (Auto) (0.00-1.00) K/uL Eos # (Auto) (0.00-0.50) K/uL Baso # (Auto) (0.00-0.20) K/uL Sodium (136-145) mmol/L Potassium (3.5-5.1) mmol/L Chloride (98-107) mmol/L Carbon Dioxide (21.0-32.0) mmol/L BUN (7-18) mg/dL Creatinine (0.51-1.17) mg/dL Est Cr Clr Drug Dosing mL/min Estimated GFR (MDRD) mL/min Glucose (70-99) mg/dL POC Glucose 154 H 300 H* 206 H (65-110) mg/dl Calcium (8.5-10.1) mg/dL Total Bilirubin (0.2-1.0) mg/dL AST (15-37) U/L ALT (12-78) U/L Alkaline Phosphatase (46-116) IU/L Total Protein (6.4-8.2) g/dL Albumin (3.4-5.0) g/dL Specimen Type Urine Color Urine Appearance Urine pH (5.0-9.0) Ur Specific [place] (1.005-1.030) Urine Protein (NEGATIVE) mg/dL Urine Glucose (UA) (NEGATIVE) mg/dL Urine Ketones (NEGATIVE) mg/dL Urine Occult Blood (NEGATIVE) Urine Nitrite (NEGATIVE) Urine Bilirubin (NEGATIVE) Urine Urobilinogen (0.2-1.0) E.U./dL Ur Leukocyte Esterase (NEGATIVE) Urine RBC /HPF Urine WBC /HPF Ur Epithelial Cells /LPF Urine Bacteria (NONE TO FEW) /HPF Urinalysis Comment 09/23/20 09/23/20 09/23/20 Range/Units 04:32 07:13 07:13 WBC 7.3 (4.0-10.2) K/uL RBC 2.83 L (3.77-5.09) M/uL Hgb 9.1 L D (11.7-15.5) g/dL Hct 27.8 L (34.0-46.0) % MCV 98.2 H (84.0-98.0) fL MCH 32.2 (28.2-33.3) pg MCHC 32.7 (31.7-36.0) g/dL RDW 14.1 (11.2-14.1) % Plt Count 399 H (150-350) K/uL Neut % (Auto) 64.7 (45.0-80.0) % Lymph % (Auto) 18.9 (10.0-50.0) % Harmon % (Auto) 8.5 (2.0-14.0) % Eos % (Auto) 7.5 H (0.0-5.0) % Baso % (Auto) 0.4 (0.0-2.0) % Neut # (Auto) 4.73 (1.40-7.00) K/uL Lymph # (Auto) 1.38 (0.50-3.50) K/uL Harmon # (Auto) 0.62 (0.00-1.00) K/uL Eos # (Auto) 0.55 H (0.00-0.50) K/uL Baso # (Auto) 0.03 (0.00-0.20) K/uL Sodium 143 (136-145) mmol/L Potassium 3.7 (3.5-5.1) mmol/L Chloride 107 (98-107) mmol/L Carbon Dioxide 27.2 (21.0-32.0) mmol/L BUN 34 H (7-18) mg/dL Creatinine 0.99 (0.51-1.17) mg/dL Est Cr Clr Drug Dosing 36.06 mL/min Estimated GFR (MDRD) 53 mL/min Glucose 86 (70-99) mg/dL POC Glucose (65-110) mg/dl Calcium 9.1 (8.5-10.1) mg/dL Total Bilirubin 0.6 (0.2-1.0) mg/dL AST 21 (15-37) U/L ALT 15 (12-78) U/L Alkaline Phosphatase 110 (46-116) IU/L Total Protein 6.4 (6.4-8.2) g/dL Albumin 2.6 L (3.4-5.0) g/dL Specimen Type Urincc Urine Color Yellow Urine Appearance Clear Urine pH 6.0 (5.0-9.0) Ur Specific [place] 1.020 (1.005-1.030) Urine Protein 30 H (NEGATIVE) mg/dL Urine Glucose (UA) Negative (NEGATIVE) mg/dL Urine Ketones Negative (NEGATIVE) mg/dL Urine Occult Blood Negative (NEGATIVE) Urine Nitrite Negative (NEGATIVE) Urine Bilirubin Negative (NEGATIVE) Urine Urobilinogen 0.2 (0.2-1.0) E.U./dL Ur Leukocyte Esterase Negative (NEGATIVE) Urine RBC 0-5 /HPF Urine WBC 0-5 /HPF Ur Epithelial Cells Occasional /LPF Urine Bacteria Few (NONE TO FEW) /HPF Urinalysis Comment 09/23/20 09/23/20 09/23/20 Range/Units 07:13 12:02 16:58 WBC (4.0-10.2) K/uL RBC (3.77-5.09) M/uL Hgb (11.7-15.5) g/dL Hct (34.0-46.0) % MCV (84.0-98.0) fL MCH (28.2-33.3) pg MCHC (31.7-36.0) g/dL RDW (11.2-14.1) % Plt Count (150-350) K/uL Neut % (Auto) (45.0-80.0) % Lymph % (Auto) (10.0-50.0) % Harmon % (Auto) (2.0-14.0) % Eos % (Auto) (0.0-5.0) % Baso % (Auto) (0.0-2.0) % Neut # (Auto) (1.40-7.00) K/uL Lymph # (Auto) (0.50-3.50) K/uL Harmon # (Auto) (0.00-1.00) K/uL Eos # (Auto) (0.00-0.50) K/uL Baso # (Auto) (0.00-0.20) K/uL Sodium (136-145) mmol/L Potassium (3.5-5.1) mmol/L Chloride (98-107) mmol/L Carbon Dioxide (21.0-32.0) mmol/L BUN (7-18) mg/dL Creatinine (0.51-1.17) mg/dL Est Cr Clr Drug Dosing mL/min Estimated GFR (MDRD) mL/min Glucose (70-99) mg/dL POC Glucose 91 92 213 H (65-110) mg/dl Calcium (8.5-10.1) mg/dL Total Bilirubin (0.2-1.0) mg/dL AST (15-37) U/L ALT (12-78) U/L Alkaline Phosphatase (46-116) IU/L Total Protein (6.4-8.2) g/dL Albumin (3.4-5.0) g/dL Specimen Type Urine Color Urine Appearance Urine pH (5.0-9.0) Ur Specific [place] (1.005-1.030) Urine Protein (NEGATIVE) mg/dL Urine Glucose (UA) (NEGATIVE) mg/dL Urine Ketones (NEGATIVE) mg/dL Urine Occult Blood (NEGATIVE) Urine Nitrite (NEGATIVE) Urine Bilirubin (NEGATIVE) Urine Urobilinogen (0.2-1.0) E.U./dL Ur Leukocyte Esterase (NEGATIVE) Urine RBC /HPF Urine WBC /HPF Ur Epithelial Cells /LPF Urine Bacteria (NONE TO FEW) /HPF Urinalysis Comment Result Diagrams: 09/23/20 07:13 09/23/20 07:13 Sepsis Event Note - Evaluation Sepsis Screening Result: No Definite Risk - Focused Exam Vital Signs: Vital Signs Temp Pulse Resp BP BP Pulse Ox 09/23/20 08:00 98.3 F 66 18 153/68 H 96 09/23/20 07:37 153/68 H - Problem List & Annotations (1) Anemia SNOMED Code(s): 656122827 Code(s): D64.9 - ANEMIA, UNSPECIFIED Status: Acute Priority: Medium Current Visit: Yes Qualifiers: Anemia type: other cause Annotation/Comment:: attributed to blood loss associated with hip surgery. Received transfusion in hospital. Hgb improved, will continue to monitor (2) S/P total hip arthroplasty SNOMED Code(s): 319784388560, 043432047829 Code(s): Z96.649 - PRESENCE OF UNSPECIFIED ARTIFICIAL HIP JOINT Status: Acute Priority: High Current Visit: Yes Onset Date: 09/16/20 Annotation/Comment:: Revision of left hip arthroplasty performed at [facility] in [place]. Here for PT/OT, swelling and warmth noted to left hip. Ice will be applied. On Aspirin BID for preventation of DVT (3) Cognitive impairment SNOMED Code(s): 413591845 Code(s): R41.89 - OTH SYMPTOMS AND SIGNS W COGNITIVE FUNCTIONS AND AWARENESS Status: Chronic Priority: Medium Current Visit: Yes Annotation/Comment:: Recent worsening s/p surgery/anesthesia/hospital stay. Cognitive testing reqested for next week. Lives at home with son. He reports that she has been having issues for a few years and has noticed worsening. Nursing to do MME and monitor labs and blood sugars (4) HTN (hypertension) SNOMED Code(s): 91042074 Code(s): I10 - ESSENTIAL (PRIMARY) HYPERTENSION Status: Chronic Priority: Low Current Visit: Yes Qualifiers: Hypertension type: essential hypertension Qualified Code(s): I10 - Essential (primary) hypertension Annotation/Comment:: vitals noted (5) IDDM (insulin dependent diabetes mellitus) SNOMED Code(s): 54129215 Code(s): QJN7499 - Status: Chronic Priority: Low Current Visit: Yes Annotation/Comment:: Accuchecks four times a day and as needed - Problem List Review Problem List Initiated/Reviewed/Updated: Yes - Plan Plan:: as above. PT/OT did initial evaluation of patient today and feels that overall she is doing well. May need as little as 2-3 weeks stay on Swing Bed. Main concern is that she be able to climb 9 steps to get into her home once discharged. 09/23/[address] Alaniz. Reviewed hospital records and lab work. Reviewed recent lab work and vitals. Continue to monitor blood sugars frequently. Ice to left hip to help with swelling. Mini Mental exam to be completed by case investigator. Continue to work with PT/OT in hopes for the patient to return to home upon discharge. Millicent Howard, JUDGE'S CLERK
[2020-09-23] MEDS: Fenofibrate,Micronized 134 MG Cap PO SCH (19:34)
[2020-09-23] MEDS: LEVEMIR INSULIN SUBCUT SCH (19:38)
[2020-09-24] MEDS: Acetaminophen 650 MG Tab.ER PO PRN ×3 (03:45→19:33)
[2020-09-24] MEDS: Aspirin 81 MG Tab.Chew PO SCH ×2 (07:24→17:42)
[2020-09-24] MEDS: Lutein/Minerals/Vitamin C/Vitamin E Acetate Cap PO SCH ×2 (07:24→17:42)
[2020-09-24] MEDS: Lisinopril 20 MG Tab PO SCH (07:25)
[2020-09-24] MEDS: Multivitamin Tab PO SCH (07:27)
[2020-09-24] MEDS: Omeprazole 20 MG Cap.CR PO SCH (07:28)
[2020-09-24] MEDS: Hydrochlorothiazide 25 MG Tab PO SCH (07:28)
[2020-09-24] MEDS: Cholecalciferol (Vitamin D3) 25 MCG Tab PO SCH (07:28)
[2020-09-24] MEDS: Propranolol 80 MG Cap.ER PO SCH (07:28)
[2020-09-24] MEDS: Cyanocobalamin (Vitamin B12) 100 MCG Tab PO SCH (07:28)
[2020-09-24] MEDS: Oxybutynin 5 MG Tab.ER PO SCH (07:28)
[2020-09-24] MEDS: FLUoxetine 20 MG Cap PO SCH (07:29)
[2020-09-24] MEDS: NOVOLOG INSULIN SUBCUT SCH ×3 (08:20→17:43)
[2020-09-24] MEDS: LEVEMIR INSULIN SUBCUT SCH (19:33)
[2020-09-24] MEDS: Fenofibrate,Micronized 134 MG Cap PO SCH (19:33)
[2020-09-25] MEDS: Acetaminophen 650 MG Tab.ER PO PRN (04:19)
[2020-09-25] MEDS: Lutein/Minerals/Vitamin C/Vitamin E Acetate Cap PO SCH ×2 (07:40→18:05)
[2020-09-25] MEDS: Propranolol 80 MG Cap.ER PO SCH (07:40)
[2020-09-25] MEDS: Oxybutynin 5 MG Tab.ER PO SCH (07:40)
[2020-09-25] MEDS: Multivitamin Tab PO SCH (07:40)
[2020-09-25] MEDS: Aspirin 81 MG Tab.Chew PO SCH ×2 (07:40→18:05)
[2020-09-25] MEDS: Cholecalciferol (Vitamin D3) 25 MCG Tab PO SCH (07:40)
[2020-09-25] MEDS: Hydrochlorothiazide 25 MG Tab PO SCH (07:40)
[2020-09-25] MEDS: Omeprazole 20 MG Cap.CR PO SCH (07:41)
[2020-09-25] MEDS: FLUoxetine 20 MG Cap PO SCH (07:41)
[2020-09-25] MEDS: Cyanocobalamin (Vitamin B12) 100 MCG Tab PO SCH (07:41)
[2020-09-25] MEDS: Lisinopril 20 MG Tab PO SCH (07:42)
[2020-09-25] MEDS: NOVOLOG INSULIN SUBCUT SCH ×3 (10:14→18:05)
[2020-09-25] MEDS: traMADol 50 MG Tab PO PRN ×2 (12:50→19:43)
[2020-09-25] MEDS: Fenofibrate,Micronized 134 MG Cap PO SCH (19:43)
[2020-09-25] MEDS: LEVEMIR INSULIN SUBCUT SCH (19:46)
[2020-09-26] MEDS: Acetaminophen 500 MG Tab PO PRN (00:12)
[2020-09-26] MEDS: traMADol 50 MG Tab PO PRN ×2 (05:43→19:40)
[2020-09-26] MEDS: Aspirin 81 MG Tab.Chew PO SCH ×2 (07:24→17:09)
[2020-09-26] MEDS: Hydrochlorothiazide 25 MG Tab PO SCH (07:24)
[2020-09-26] MEDS: Cholecalciferol (Vitamin D3) 25 MCG Tab PO SCH (07:24)
[2020-09-26] MEDS: Lisinopril 20 MG Tab PO SCH (07:24)
[2020-09-26] MEDS: FLUoxetine 20 MG Cap PO SCH (07:24)
[2020-09-26] MEDS: Lutein/Minerals/Vitamin C/Vitamin E Acetate Cap PO SCH ×2 (07:24→17:09)
[2020-09-26] MEDS: Cyanocobalamin (Vitamin B12) 100 MCG Tab PO SCH (07:24)
[2020-09-26] MEDS: Propranolol 80 MG Cap.ER PO SCH (07:25)
[2020-09-26] MEDS: Multivitamin Tab PO SCH (07:25)
[2020-09-26] MEDS: Oxybutynin 5 MG Tab.ER PO SCH (07:25)
[2020-09-26] MEDS: Omeprazole 20 MG Cap.CR PO SCH (07:25)
[2020-09-26] MEDS: NOVOLOG INSULIN SUBCUT SCH ×3 (07:26→17:32)
--- NOTE | 2020-09-26 13:04 | PCM.PN ---
- General Info Date of Service: 09/26/20 Admission Dx/Problem (Free Text): Admission Diagnosis/Problem Admission Diagnosis/Problem History of arthroplasty of left hip, repair of previous hip replacement Subjective Update: Patient has been having some increased confusion especially in the evening. Nursing states that the patient's confusion is on and off throughout the day. The patient does recognize me today on rounds. - Review of Systems General: Reports: Weakness HEENT: Reports: No Symptoms Pulmonary: Reports: No Symptoms Cardiovascular: Reports: No Symptoms Gastrointestinal: Reports: No Symptoms Musculoskeletal: Reports: Leg Pain, Joint Pain Skin: Reports: No Symptoms Neurological: Reports: No Symptoms Psychiatric: Reports: Confusion - Patient Data Vitals - Most Recent: Last Vital Signs Temp 97.6 F 09/26/20 07:20 Pulse 70 09/26/20 07:20 Resp 20 09/26/20 07:20 BP 163/60 H 09/26/20 07:24 Pulse Ox 94 L 09/26/20 07:20 Weight - Most Recent: 163 lb 9.6 oz I&O - Last 24 Hours: Intake & Output 09/25/20 09/26/20 09/26/20 22:59 06:59 14:59 Intake Total 180 560 Output Total 2 Balance 180 -2 560 Lab Results Last 24 Hours: Laboratory Results - last 24 hr 09/25/20 09/26/20 09/26/20 Range/Units 17:00 07:12 07:25 WBC 9.9 (4.0-10.2) K/uL RBC 3.23 L (3.77-5.09) M/uL Hgb 10.4 L (11.7-15.5) g/dL Hct 32.0 L (34.0-46.0) % MCV 99.1 H (84.0-98.0) fL MCH 32.2 (28.2-33.3) pg MCHC 32.5 (31.7-36.0) g/dL RDW 14.1 (11.2-14.1) % Plt Count 485 H D (150-350) K/uL Neut % (Auto) 68.9 (45.0-80.0) % Lymph % (Auto) 16.6 (10.0-50.0) % [place] % (Auto) 8.2 (2.0-14.0) % Eos % (Auto) 5.9 H (0.0-5.0) % Baso % (Auto) 0.4 (0.0-2.0) % Neut # (Auto) 6.78 (1.40-7.00) K/uL Lymph # (Auto) 1.64 (0.50-3.50) K/uL [place] # (Auto) 0.81 (0.00-1.00) K/uL Eos # (Auto) 0.58 H (0.00-0.50) K/uL Baso # (Auto) 0.04 (0.00-0.20) K/uL Sodium (136-145) mmol/L Potassium (3.5-5.1) mmol/L Chloride (98-107) mmol/L Carbon Dioxide (21.0-32.0) mmol/L BUN (7-18) mg/dL Creatinine (0.51-1.17) mg/dL Est Cr Clr Drug Dosing mL/min Estimated GFR (MDRD) mL/min Glucose (70-99) mg/dL POC Glucose 118 H 77 (65-110) mg/dl Calcium (8.5-10.1) mg/dL 09/26/20 09/26/20 Range/Units 07:25 11:23 WBC (4.0-10.2) K/uL RBC (3.77-5.09) M/uL Hgb (11.7-15.5) g/dL Hct (34.0-46.0) % MCV (84.0-98.0) fL MCH (28.2-33.3) pg MCHC (31.7-36.0) g/dL RDW (11.2-14.1) % Plt Count (150-350) K/uL Neut % (Auto) (45.0-80.0) % Lymph % (Auto) (10.0-50.0) % [place] % (Auto) (2.0-14.0) % Eos % (Auto) (0.0-5.0) % Baso % (Auto) (0.0-2.0) % Neut # (Auto) (1.40-7.00) K/uL Lymph # (Auto) (0.50-3.50) K/uL [place] # (Auto) (0.00-1.00) K/uL Eos # (Auto) (0.00-0.50) K/uL Baso # (Auto) (0.00-0.20) K/uL Sodium 142 (136-145) mmol/L Potassium 4.2 (3.5-5.1) mmol/L Chloride 105 (98-107) mmol/L Carbon Dioxide 28.3 (21.0-32.0) mmol/L BUN 29 H (7-18) mg/dL Creatinine 0.95 (0.51-1.17) mg/dL Est Cr Clr Drug Dosing 37.58 mL/min Estimated GFR (MDRD) 55 mL/min Glucose 85 (70-99) mg/dL POC Glucose 165 H (65-110) mg/dl Calcium 9.1 (8.5-10.1) mg/dL Med Orders - Current: Current Medications Acetaminophen (Tylenol Extra Strength) 500 mg PO Q6H PRN PRN Reason: Pain (moderate 4-6) Last Admin: 09/26/20 00:12 Dose: 500 mg Documented by: Aspirin (Aspirin) 81 mg PO BID [facility] Stop: 10/28/20 18:01 Last Admin: 09/26/20 07:24 Dose: 81 mg Documented by: Aspirin (Aspirin) 81 mg PO DAILY [facility] Cholecalciferol (Vitamin D3) 25 mcg PO DAILY [facility] Last Admin: 09/26/20 07:24 Dose: 25 mcg Documented by: Cyanocobalamin (Vitamin B12) 100 mcg PO DAILY [facility] Last Admin: 09/26/20 07:24 Dose: 100 mcg Documented by: Fenofibrate (Fenofibrate) 134 mg PO BEDTIME [facility] Last Admin: 09/25/20 19:43 Dose: 134 mg Documented by: Fluoxetine HCl (Prozac) 20 mg PO DAILY [facility] Last Admin: 09/26/20 07:24 Dose: 20 mg Documented by: Hydrochlorothiazide (Hydrochlorothiazide) 25 mg PO DAILY [facility] Last Admin: 09/26/20 07:24 Dose: 25 mg Documented by: Lisinopril (Prinivil) 40 mg PO DAILY [facility] Last Admin: 09/26/20 07:24 Dose: 40 mg Documented by: Multivitamins/Minerals/Vitamin C (Tab-A-Kacie) 1 tab PO DAILY [facility] Last Admin: 09/26/20 07:25 Dose: 1 tab Documented by: Nitroglycerin (Nitrostat) 0.4 mg SL ASDIRECTED PRN PRN Reason: CHEST DISCOMFORT Omeprazole (Omeprazole) 20 mg PO ACBREAKFAST [facility] Last Admin: 09/26/20 07:25 Dose: 20 mg Documented by: Oxybutynin Chloride (Oxybutynin Er) 10 mg PO DAILY [facility] Last Admin: 09/26/20 07:25 Dose: 10 mg Documented by: Levemir Insulin Pen 100 Unit/Ml Own Med 0 each SUBCUT BEDTIME [facility] Last Admin: 09/25/20 19:46 Dose: 20 each Documented by: Patient's Own Medication 1 Each Novolog Insulin Pen 8 each SUBCUT TID [facility] Last Admin: 09/26/20 12:44 Dose: 8 each Documented by: Propranolol HCl (Inderal La) 80 mg PO DAILY [facility] Last Admin: 09/26/20 07:25 Dose: 80 mg Documented by: Senna/Docusate Sodium (Senna Plus) 2 tab PO DAILY [facility] Last Admin: 09/26/20 07:26 Dose: Not Given Documented by: Tramadol HCl (Ultram) 50 mg PO Q4H PRN PRN Reason: Pain (moderate 4-6) Last Admin: 09/26/20 05:43 Dose: 50 mg Documented by: Vit C/Vit E/Zinc/Copper/Lutein (Ocuvite Lutein) 1 each PO BID [facility] Last Admin: 09/26/20 07:24 Dose: 1 each Documented by: Discontinued Medications Acetaminophen (Tylenol Arthritis Pain) 650 mg PO Q8H PRN PRN Reason: Pain Last Admin: 09/25/20 04:19 Dose: 650 mg Documented by: Oxycodone HCl (Oxycodone) 5 mg PO Q3H PRN PRN Reason: Pain Novolog Insulin Pen 100unit/Ml Own Med 0 each SUBCUT TID [facility] Last Admin: 09/23/20 12:07 Dose: Not Given Documented by: Vit C/Vit E/Zinc/Copper/Lutein (Ocuvite Lutein) 1 each PO DAILY [facility] Last Admin: 09/23/20 07:36 Dose: 1 each Documented by: - Exam Quality Assessment: DVT Prophylaxis General: Alert, Cooperative, No Acute Distress Neck: Supple Lungs: Clear to Auscultation, Normal Respiratory Effort Cardiovascular: Regular Rate, Regular Rhythm, Murmurs GI/Abdominal Exam: Normal Bowel Sounds, Soft, Non-Tender Extremities: Normal Inspection, Normal Range of Motion, Non-Tender, No Pedal Edema, Joint Swelling (Left hip) Skin: Warm, Dry, Intact Wound/Incisions: Healing Well Neurological: No New Focal Deficit Psy/Mental Status: Alert, Normal Affect, Normal Mood - Patient Data Lab Results Last 24 hrs: Laboratory Results - last 24 hr 09/25/20 09/26/20 09/26/20 Range/Units 17:00 07:12 07:25 WBC 9.9 (4.0-10.2) K/uL RBC 3.23 L (3.77-5.09) M/uL Hgb 10.4 L (11.7-15.5) g/dL Hct 32.0 L (34.0-46.0) % MCV 99.1 H (84.0-98.0) fL MCH 32.2 (28.2-33.3) pg MCHC 32.5 (31.7-36.0) g/dL RDW 14.1 (11.2-14.1) % Plt Count 485 H D (150-350) K/uL Neut % (Auto) 68.9 (45.0-80.0) % Lymph % (Auto) 16.6 (10.0-50.0) % [place] % (Auto) 8.2 (2.0-14.0) % Eos % (Auto) 5.9 H (0.0-5.0) % Baso % (Auto) 0.4 (0.0-2.0) % Neut # (Auto) 6.78 (1.40-7.00) K/uL Lymph # (Auto) 1.64 (0.50-3.50) K/uL [place] # (Auto) 0.81 (0.00-1.00) K/uL Eos # (Auto) 0.58 H (0.00-0.50) K/uL Baso # (Auto) 0.04 (0.00-0.20) K/uL Sodium (136-145) mmol/L Potassium (3.5-5.1) mmol/L Chloride (98-107) mmol/L Carbon Dioxide (21.0-32.0) mmol/L BUN (7-18) mg/dL Creatinine (0.51-1.17) mg/dL Est Cr Clr Drug Dosing mL/min Estimated GFR (MDRD) mL/min Glucose (70-99) mg/dL POC Glucose 118 H 77 (65-110) mg/dl Calcium (8.5-10.1) mg/dL 09/26/20 09/26/20 Range/Units 07:25 11:23 WBC (4.0-10.2) K/uL RBC (3.77-5.09) M/uL Hgb (11.7-15.5) g/dL Hct (34.0-46.0) % MCV (84.0-98.0) fL MCH (28.2-33.3) pg MCHC (31.7-36.0) g/dL RDW (11.2-14.1) % Plt Count (150-350) K/uL Neut % (Auto) (45.0-80.0) % Lymph % (Auto) (10.0-50.0) % [place] % (Auto) (2.0-14.0) % Eos % (Auto) (0.0-5.0) % Baso % (Auto) (0.0-2.0) % Neut # (Auto) (1.40-7.00) K/uL Lymph # (Auto) (0.50-3.50) K/uL [place] # (Auto) (0.00-1.00) K/uL Eos # (Auto) (0.00-0.50) K/uL Baso # (Auto) (0.00-0.20) K/uL Sodium 142 (136-145) mmol/L Potassium 4.2 (3.5-5.1) mmol/L Chloride 105 (98-107) mmol/L Carbon Dioxide 28.3 (21.0-32.0) mmol/L BUN 29 H (7-18) mg/dL Creatinine 0.95 (0.51-1.17) mg/dL Est Cr Clr Drug Dosing 37.58 mL/min Estimated GFR (MDRD) 55 mL/min Glucose 85 (70-99) mg/dL POC Glucose 165 H (65-110) mg/dl Calcium 9.1 (8.5-10.1) mg/dL Result Diagrams: 09/26/20 07:25 09/26/20 07:25 Sepsis Event Note - Evaluation Sepsis Screening Result: No Definite Risk - Focused Exam Vital Signs: Vital Signs Temp Pulse Resp BP BP Pulse Ox 09/26/20 07:24 163/60 H 09/26/20 07:20 97.6 F 70 20 163/60 H 94 L - Problem List & Annotations (1) Anemia SNOMED Code(s): 028232389 Code(s): D64.9 - ANEMIA, UNSPECIFIED Status: Acute Priority: Medium Current Visit: Yes Qualifiers: Anemia type: other cause Annotation/Comment:: Hemoglobin noted to improve off of a.m. labs from today. (2) S/P total hip arthroplasty SNOMED Code(s): 861161597800, 731935776828 Code(s): Z96.649 - PRESENCE OF UNSPECIFIED ARTIFICIAL HIP JOINT Status: Acute Priority: High Current Visit: Yes Onset Date: 09/16/20 Annotation/Comment:: . On Aspirin BID for preventation of DVT, continue with physical and occupational therapy. (3) Cognitive impairment SNOMED Code(s): 430193173 Code(s): R41.89 - [facility] SYMPTOMS AND SIGNS W COGNITIVE FUNCTIONS AND AWARENESS Status: Chronic Priority: Medium Current Visit: Yes Annotation/Comment:: Some underlying dementia noted, patient's confusion seems to come and go. The nursing staff states that overall the patient has been improving in regards to her short-term memory loss. (4) HTN (hypertension) SNOMED Code(s): 44953024 Code(s): I10 - ESSENTIAL (PRIMARY) HYPERTENSION Status: Chronic Priority: Low Current Visit: Yes Qualifiers: Hypertension type: essential hypertension Qualified Code(s): I10 - Essential (primary) hypertension Annotation/Comment:: vitals noted (5) IDDM (insulin dependent diabetes mellitus) SNOMED Code(s): 91565857 Code(s): CME1330 - Status: Chronic Priority: Low Current Visit: Yes Annotation/Comment:: Accuchecks four times a day and as needed - Problem List Review Problem List Initiated/Reviewed/Updated: Yes - Plan Plan:: as above. PT/OT did initial evaluation of patient today and feels that overall she is doing well. May need as little as 2-3 weeks stay on Swing Bed. Main concern is that she be able to climb 9 steps to get into her home once discharged. 09/23/[address] Alaniz. Reviewed hospital records and lab work. Reviewed recent lab work and vitals. Continue to monitor blood sugars frequently. Ice to left hip to help with swelling. Mini Mental exam to be completed by case picker. Continue to work with PT/OT in hopes for the patient to return to home upon discharge. Millicent Howard CNP 09/26/2020 Patient is needing swing bed stay for continual rehabilitation in regards to her left hip revision, requires physical and occupational therapy. The patient is also needing further monitoring in regards to her blood sugars as her diet is up and down. Continue to monitor the cognitive function and the patient does require reminders in regards to her ADLs. Millicent Howard,INSULATION INSPECTOR
[2020-09-26] MEDS: Fenofibrate,Micronized 134 MG Cap PO SCH (19:40)
[2020-09-26] MEDS: LEVEMIR INSULIN SUBCUT SCH (19:59)
[2020-09-27] MEDS: Aspirin 81 MG Tab.Chew PO SCH ×2 (07:52→17:59)
[2020-09-27] MEDS: Cyanocobalamin (Vitamin B12) 100 MCG Tab PO SCH (07:52)
[2020-09-27] MEDS: Hydrochlorothiazide 25 MG Tab PO SCH (07:52)
[2020-09-27] MEDS: Oxybutynin 5 MG Tab.ER PO SCH (07:52)
[2020-09-27] MEDS: Propranolol 80 MG Cap.ER PO SCH (07:52)
[2020-09-27] MEDS: Cholecalciferol (Vitamin D3) 25 MCG Tab PO SCH (07:52)
[2020-09-27] MEDS: Lisinopril 20 MG Tab PO SCH (07:52)
[2020-09-27] MEDS: Multivitamin Tab PO SCH (07:52)
[2020-09-27] MEDS: Omeprazole 20 MG Cap.CR PO SCH (07:52)
[2020-09-27] MEDS: FLUoxetine 20 MG Cap PO SCH (07:52)
[2020-09-27] MEDS: traMADol 50 MG Tab PO PRN ×3 (07:53→20:47)
[2020-09-27] MEDS: Lutein/Minerals/Vitamin C/Vitamin E Acetate Cap PO SCH ×2 (07:53→17:59)
[2020-09-27] MEDS: NOVOLOG INSULIN SUBCUT SCH ×3 (08:01→18:01)
[2020-09-27] MEDS: Fenofibrate,Micronized 134 MG Cap PO SCH (20:44)
[2020-09-27] MEDS: LEVEMIR INSULIN SUBCUT SCH (20:46)
[2020-09-28] MEDS: Omeprazole 20 MG Cap.CR PO SCH (07:41)
[2020-09-28] MEDS: Aspirin 81 MG Tab.Chew PO SCH ×2 (08:06→17:29)
[2020-09-28] MEDS: Hydrochlorothiazide 25 MG Tab PO SCH (08:06)
[2020-09-28] MEDS: Lutein/Minerals/Vitamin C/Vitamin E Acetate Cap PO SCH ×2 (08:06→17:29)
[2020-09-28] MEDS: Cyanocobalamin (Vitamin B12) 100 MCG Tab PO SCH (08:07)
[2020-09-28] MEDS: Multivitamin Tab PO SCH (08:07)
[2020-09-28] MEDS: Cholecalciferol (Vitamin D3) 25 MCG Tab PO SCH (08:07)
[2020-09-28] MEDS: Lisinopril 20 MG Tab PO SCH (08:07)
[2020-09-28] MEDS: Oxybutynin 5 MG Tab.ER PO SCH (08:07)
[2020-09-28] MEDS: Propranolol 80 MG Cap.ER PO SCH (08:08)
[2020-09-28] MEDS: FLUoxetine 20 MG Cap PO SCH (08:08)
[2020-09-28] MEDS: NOVOLOG INSULIN SUBCUT SCH ×3 (08:09→17:32)
[2020-09-28] MEDS: Acetaminophen 500 MG Tab PO PRN (08:10)
[2020-09-28] MEDS: Fenofibrate,Micronized 134 MG Cap PO SCH (20:53)
[2020-09-28] MEDS: LEVEMIR INSULIN SUBCUT SCH (20:54)
[2020-09-28] MEDS: traMADol 50 MG Tab PO PRN (20:55)
[2020-09-29] MEDS: Aspirin 81 MG Tab.Chew PO SCH ×2 (08:32→17:00)
[2020-09-29] MEDS: Hydrochlorothiazide 25 MG Tab PO SCH (08:32)
[2020-09-29] MEDS: Omeprazole 20 MG Cap.CR PO SCH (08:32)
[2020-09-29] MEDS: Propranolol 80 MG Cap.ER PO SCH (08:33)
[2020-09-29] MEDS: Lisinopril 20 MG Tab PO SCH (08:33)
[2020-09-29] MEDS: Lutein/Minerals/Vitamin C/Vitamin E Acetate Cap PO SCH ×2 (08:33→17:00)
[2020-09-29] MEDS: Oxybutynin 5 MG Tab.ER PO SCH (08:33)
[2020-09-29] MEDS: NOVOLOG INSULIN SUBCUT SCH ×3 (08:34→17:00)
[2020-09-29] MEDS: FLUoxetine 20 MG Cap PO SCH (08:34)
[2020-09-29] MEDS: Multivitamin Tab PO SCH (08:35)
[2020-09-29] MEDS: Cholecalciferol (Vitamin D3) 25 MCG Tab PO SCH (08:36)
[2020-09-29] MEDS: Acetaminophen 500 MG Tab PO PRN ×2 (08:36→20:52)
[2020-09-29] MEDS: traMADol 50 MG Tab PO PRN (12:40)
[2020-09-29] MEDS: Cyanocobalamin (Vitamin B12) 100 MCG Tab PO SCH (12:40)
[2020-09-29] MEDS: Fenofibrate,Micronized 134 MG Cap PO SCH (20:50)
[2020-09-29] MEDS: LEVEMIR INSULIN SUBCUT SCH (20:51)
[2020-09-30] MEDS: FLUoxetine 20 MG Cap PO SCH (09:16)
[2020-09-30] MEDS: Lisinopril 20 MG Tab PO SCH (09:16)
[2020-09-30] MEDS: Oxybutynin 5 MG Tab.ER PO SCH (09:16)
[2020-09-30] MEDS: Aspirin 81 MG Tab.Chew PO SCH ×2 (09:16→17:34)
[2020-09-30] MEDS: Propranolol 80 MG Cap.ER PO SCH (09:16)
[2020-09-30] MEDS: Cyanocobalamin (Vitamin B12) 100 MCG Tab PO SCH (09:16)
[2020-09-30] MEDS: Cholecalciferol (Vitamin D3) 25 MCG Tab PO SCH (09:16)
[2020-09-30] MEDS: Lutein/Minerals/Vitamin C/Vitamin E Acetate Cap PO SCH ×2 (09:16→17:34)
[2020-09-30] MEDS: Omeprazole 20 MG Cap.CR PO SCH (09:17)
[2020-09-30] MEDS: Hydrochlorothiazide 25 MG Tab PO SCH (09:17)
[2020-09-30] MEDS: NOVOLOG INSULIN SUBCUT SCH ×4 (09:17→17:38)
[2020-09-30] MEDS: Multivitamin Tab PO SCH (09:17)
[2020-09-30] MEDS: traMADol 50 MG Tab PO PRN (17:44)
[2020-09-30] MEDS: LEVEMIR INSULIN SUBCUT SCH (19:25)
[2020-09-30] MEDS: Fenofibrate,Micronized 134 MG Cap PO SCH (19:28)
[2020-09-30] MEDS: Temazepam 15 MG Cap PO PRN (20:47)
--- NOTE | 2020-10-01 08:43 | PCM.PN ---
- General Info Date of Service: 09/30/20 Admission Dx/Problem (Free Text): Admission Diagnosis/Problem Admission Diagnosis/Problem History of arthroplasty of left hip, repair of previous hip replacement Subjective Update: Patient has been having some increased confusion especially in the evening. Nursing states that the patient's confusion is on and off throughout the day. Patient states doing better but no sleeping well. She is wondering if she can take something for sleep. Functional Status: Reports: Pain Controlled, Tolerating Diet, Ambulating - Review of Systems General: Reports: Weakness HEENT: Reports: No Symptoms Pulmonary: Reports: No Symptoms Cardiovascular: Reports: No Symptoms Gastrointestinal: Reports: No Symptoms Genitourinary: Reports: Frequency, Urgency Musculoskeletal: Reports: Joint Pain Skin: Reports: No Symptoms Neurological: Reports: No Symptoms Psychiatric: Reports: Confusion - Patient Data Vitals - Most Recent: Last Vital Signs Temp 97.4 F 10/01/20 08:00 Pulse 96 09/29/20 08:00 Resp 16 09/29/20 08:00 BP 162/66 H 09/30/20 10:10 Pulse Ox 98 09/30/20 10:10 Weight - Most Recent: 155 lb 1.6 oz I&O - Last 24 Hours: Intake & Output 09/30/20 10/01/20 10/01/20 22:59 06:59 14:59 Intake Total 890 Balance 890 Lab Results Last 24 Hours: Laboratory Results - last 24 hr 09/30/20 09/30/20 09/30/20 Range/Units 11:26 19:25 20:52 POC Glucose 190 H 373 H* 305 H* (65-110) mg/dl 10/01/20 Range/Units 07:35 POC Glucose 153 H (65-110) mg/dl Med Orders - Current: Current Medications Acetaminophen (Tylenol Extra Strength) 500 mg PO Q6H PRN PRN Reason: Pain (moderate 4-6) Last Admin: 09/29/20 20:52 Dose: 500 mg Documented by: Aspirin (Aspirin) 81 mg PO BID [facility] Stop: 10/28/20 18:01 Last Admin: 09/30/20 17:34 Dose: 81 mg Documented by: Aspirin (Aspirin) 81 mg PO DAILY [facility] Cholecalciferol (Vitamin D3) 25 mcg PO DAILY [facility] Last Admin: 09/30/20 09:16 Dose: 25 mcg Documented by: Cyanocobalamin (Vitamin B12) 100 mcg PO DAILY [facility] Last Admin: 09/30/20 09:16 Dose: 100 mcg Documented by: Fenofibrate (Fenofibrate) 134 mg PO BEDTIME [facility] Last Admin: 09/30/20 19:28 Dose: 134 mg Documented by: Fluoxetine HCl (Prozac) 20 mg PO DAILY [facility] Last Admin: 09/30/20 09:16 Dose: 20 mg Documented by: Hydrochlorothiazide (Hydrochlorothiazide) 25 mg PO DAILY [facility] Last Admin: 09/30/20 09:17 Dose: 25 mg Documented by: Lisinopril (Prinivil) 40 mg PO DAILY [facility] Last Admin: 09/30/20 09:16 Dose: 40 mg Documented by: Multivitamins/Minerals/Vitamin C (Tab-A-Kacie) 1 tab PO DAILY [facility] Last Admin: 09/30/20 09:17 Dose: 1 tab Documented by: Nitroglycerin (Nitrostat) 0.4 mg SL ASDIRECTED PRN PRN Reason: CHEST DISCOMFORT Omeprazole (Omeprazole) 20 mg PO ACBREAKFAST [facility] Last Admin: 09/30/20 09:17 Dose: 20 mg Documented by: Oxybutynin Chloride (Oxybutynin Er) 10 mg PO DAILY [facility] Last Admin: 09/30/20 09:16 Dose: 10 mg Documented by: Levemir Insulin Pen 100 Unit/Ml Own Med 0 each SUBCUT BEDTIME [facility] Last Admin: 09/30/20 19:25 Dose: 1 each Documented by: Patient's Own Medication 1 Each Novolog Insulin Pen 8 each SUBCUT TID [facility] Last Admin: 09/30/20 17:38 Dose: 8 each Documented by: Propranolol HCl (Inderal La) 80 mg PO DAILY [facility] Last Admin: 09/30/20 09:16 Dose: 80 mg Documented by: Senna/Docusate Sodium (Senna Plus) 2 tab PO DAILY [facility] Last Admin: 09/30/20 09:16 Dose: 2 tab Documented by: Temazepam (Restoril) 15 mg PO BEDTIME PRN PRN Reason: Sleep Last Admin: 09/30/20 20:47 Dose: 15 mg Documented by: Tramadol HCl (Ultram) 50 mg PO Q4H PRN PRN Reason: Pain (moderate 4-6) Last Admin: 09/30/20 17:44 Dose: 50 mg Documented by: Vit C/Vit E/Zinc/Copper/Lutein (Ocuvite Lutein) 1 each PO BID [facility] Last Admin: 09/30/20 17:34 Dose: 1 each Documented by: Discontinued Medications Acetaminophen (Tylenol Arthritis Pain) 650 mg PO Q8H PRN PRN Reason: Pain Last Admin: 09/25/20 04:19 Dose: 650 mg Documented by: Oxycodone HCl (Oxycodone) 5 mg PO Q3H PRN PRN Reason: Pain Novolog Insulin Pen 100unit/Ml Own Med 0 each SUBCUT TID [facility] Last Admin: 09/23/20 12:07 Dose: Not Given Documented by: Vit C/Vit E/Zinc/Copper/Lutein (Ocuvite Lutein) 1 each PO DAILY [facility] Last Admin: 09/23/20 07:36 Dose: 1 each Documented by: - Exam General: Alert, Cooperative Neck: Supple Lungs: Clear to Auscultation, Normal Respiratory Effort Cardiovascular: Regular Rate, Regular Rhythm GI/Abdominal Exam: Normal Bowel Sounds, Soft, Non-Tender, No Organomegaly Back Exam: Normal Inspection Extremities: Normal Inspection, Normal Range of Motion, Joint Swelling (left hip area) Peripheral Pulses: 1+: Dorsalis Pedis (L), Dorsalis Pedis (R) Skin: Warm, Dry Wound/Incisions: Healing Well, Dressing Dry and Intact Neurological: No New Focal Deficit Psy/Mental Status: Alert, Normal Affect, Normal Mood - Patient Data Lab Results Last 24 hrs: Laboratory Results - last 24 hr 09/30/20 09/30/20 09/30/20 Range/Units 11:26 19:25 20:52 POC Glucose 190 H 373 H* 305 H* (65-110) mg/dl 10/01/20 Range/Units 07:35 POC Glucose 153 H (65-110) mg/dl Result Diagrams: 09/26/20 07:25 09/26/20 07:25 Sepsis Event Note - Evaluation Sepsis Screening Result: No Definite Risk - Focused Exam Vital Signs: Vital Signs Temp 10/01/20 08:00 97.4 F - Problem List & Annotations (1) Anemia SNOMED Code(s): 651838170 Code(s): D64.9 - ANEMIA, UNSPECIFIED Status: Resolved Priority: Medium Current Visit: Yes Qualifiers: Anemia type: other cause (2) S/P total hip arthroplasty SNOMED Code(s): 774300441256, 021969771773 Code(s): Z96.649 - PRESENCE OF UNSPECIFIED ARTIFICIAL HIP JOINT Status: Acute Priority: High Current Visit: Yes Onset Date: 09/16/20 Qualifiers: Laterality: left Qualified Code(s): Z96.642 - Presence of left artificial hip joint Annotation/Comment:: . On Aspirin BID for preventation of DVT, continue with physical and occupational therapy. (3) Cognitive impairment SNOMED Code(s): 589615723 Code(s): R41.89 - [facility] SYMPTOMS AND SIGNS W COGNITIVE FUNCTIONS AND AWARENESS Status: Chronic Priority: Medium Current Visit: Yes Annotation/Comment:: Some underlying dementia noted, patient's confusion seems to come and go. The nursing staff states that overall the patient has been improving in regards to her short-term memory loss. (4) HTN (hypertension) SNOMED Code(s): 86973197 Code(s): I10 - ESSENTIAL (PRIMARY) HYPERTENSION Status: Chronic Priority: Low Current Visit: Yes Qualifiers: Hypertension type: essential hypertension Qualified Code(s): I10 - Essential (primary) hypertension Annotation/Comment:: vitals noted (5) IDDM (insulin dependent diabetes mellitus) SNOMED Code(s): 63499796 Code(s): IOZ8681 - Status: Chronic Priority: Low Current Visit: Yes Annotation/Comment:: Accuchecks four times a day and as needed - Problem List Review Problem List Initiated/Reviewed/Updated: Yes - My Orders Last 24 Hours: My Active Orders 09/30/20 16:52 Temazepam [Restoril] 15 mg PO BEDTIME PRN - Plan Plan:: as above. PT/OT did initial evaluation of patient today and feels that overall she is doing well. May need as little as 2-3 weeks stay on Swing Bed. Main concern is that she be able to climb 9 steps to get into her home once disch arged. 09/23/[address] Alaniz. Reviewed hospital records and lab work. Reviewed recent lab work and vitals. Continue to monitor blood sugars frequently. Ice to left hip to help with swelling. Mini Mental exam to be completed by adult protective caseworker. Continue to work with PT/OT in hopes for the patient to return to home upon discharge. Millicent Howard CNP 09/26/2020 Patient is needing swing bed stay for continual rehabilitation in regards to her left hip revision, requires physical and occupational therapy. The patient is also needing further monitoring in regards to her blood sugars as her diet is up and down. Continue to monitor the cognitive function and the patient does require reminders in regards to her ADLs. Millicent Howard CNP 09/30/2020 Late entry Patient was seen and states that she is doing quite well. She continues in physical and occupational therapy. The patient mentions that she may be going home within the next week or so. She has not been able to sleep and she is wondering if she could try something for sleep. Temazepam 15 mg nightly as needed ordered. Patient seems to be more clear today. Less confusion is noted. Millicent Howard CNP
[2020-10-01] MEDS: Aspirin 81 MG Tab.Chew PO SCH ×2 (11:56→17:28)
[2020-10-01] MEDS: Oxybutynin 5 MG Tab.ER PO SCH (11:56)
[2020-10-01] MEDS: FLUoxetine 20 MG Cap PO SCH (11:56)
[2020-10-01] MEDS: Hydrochlorothiazide 25 MG Tab PO SCH (11:56)
[2020-10-01] MEDS: Omeprazole 20 MG Cap.CR PO SCH (11:56)
[2020-10-01] MEDS: NOVOLOG INSULIN SUBCUT SCH ×3 (11:56→17:27)
[2020-10-01] MEDS: Lutein/Minerals/Vitamin C/Vitamin E Acetate Cap PO SCH ×2 (11:56→17:28)
[2020-10-01] MEDS: Lisinopril 20 MG Tab PO SCH (11:56)
[2020-10-01] MEDS: Propranolol 80 MG Cap.ER PO SCH (11:56)
[2020-10-01] MEDS: Multivitamin Tab PO SCH (11:57)
[2020-10-01] MEDS: Cyanocobalamin (Vitamin B12) 100 MCG Tab PO SCH (11:57)
[2020-10-01] MEDS: Cholecalciferol (Vitamin D3) 25 MCG Tab PO SCH (11:57)
[2020-10-01] MEDS: Fenofibrate,Micronized 134 MG Cap PO SCH (19:55)
[2020-10-01] MEDS: LEVEMIR INSULIN SUBCUT SCH (19:56)
[2020-10-01] MEDS: Temazepam 15 MG Cap PO PRN (20:05)
[2020-10-02] MEDS: Oxybutynin 5 MG Tab.ER PO SCH (07:57)
[2020-10-02] MEDS: Lisinopril 20 MG Tab PO SCH (07:58)
[2020-10-02] MEDS: Hydrochlorothiazide 25 MG Tab PO SCH (07:58)
[2020-10-02] MEDS: Aspirin 81 MG Tab.Chew PO SCH ×2 (07:59→17:51)
[2020-10-02] MEDS: Propranolol 80 MG Cap.ER PO SCH (07:59)
[2020-10-02] MEDS: Omeprazole 20 MG Cap.CR PO SCH (07:59)
[2020-10-02] MEDS: FLUoxetine 20 MG Cap PO SCH (07:59)
[2020-10-02] MEDS: Lutein/Minerals/Vitamin C/Vitamin E Acetate Cap PO SCH ×2 (08:00→17:51)
[2020-10-02] MEDS: NOVOLOG INSULIN SUBCUT SCH ×3 (08:04→17:54)
[2020-10-02] MEDS: Cholecalciferol (Vitamin D3) 25 MCG Tab PO SCH (08:05)
[2020-10-02] MEDS: Multivitamin Tab PO SCH (08:05)
[2020-10-02] MEDS: Cyanocobalamin (Vitamin B12) 100 MCG Tab PO SCH (08:06)
[2020-10-02] MEDS: Fenofibrate,Micronized 134 MG Cap PO SCH (19:23)
[2020-10-02] MEDS: LEVEMIR INSULIN SUBCUT SCH (19:23)
[2020-10-02] MEDS: Temazepam 15 MG Cap PO PRN (19:25)
[2020-10-03] MEDS: NOVOLOG INSULIN SUBCUT SCH ×3 (07:47→17:35)
[2020-10-03] MEDS: Aspirin 81 MG Tab.Chew PO SCH ×2 (07:52→17:34)
[2020-10-03] MEDS: Omeprazole 20 MG Cap.CR PO SCH (07:52)
[2020-10-03] MEDS: Propranolol 80 MG Cap.ER PO SCH (07:53)
[2020-10-03] MEDS: Hydrochlorothiazide 25 MG Tab PO SCH (07:53)
[2020-10-03] MEDS: Lutein/Minerals/Vitamin C/Vitamin E Acetate Cap PO SCH ×2 (07:54→17:34)
[2020-10-03] MEDS: FLUoxetine 20 MG Cap PO SCH (07:55)
[2020-10-03] MEDS: Lisinopril 20 MG Tab PO SCH (07:55)
[2020-10-03] MEDS: Oxybutynin 5 MG Tab.ER PO SCH (07:55)
[2020-10-03] MEDS: Cyanocobalamin (Vitamin B12) 100 MCG Tab PO SCH (07:56)
[2020-10-03] MEDS: Multivitamin Tab PO SCH (07:56)
[2020-10-03] MEDS: Cholecalciferol (Vitamin D3) 25 MCG Tab PO SCH (07:57)
[2020-10-03] MEDS: Fenofibrate,Micronized 134 MG Cap PO SCH (20:08)
[2020-10-03] MEDS: LEVEMIR INSULIN SUBCUT SCH (20:09)
[2020-10-03] MEDS: Temazepam 15 MG Cap PO PRN (20:12)
[2020-10-04] MEDS: Omeprazole 20 MG Cap.CR PO SCH (07:23)
[2020-10-04] MEDS: Hydrochlorothiazide 25 MG Tab PO SCH (07:23)
[2020-10-04] MEDS: Lutein/Minerals/Vitamin C/Vitamin E Acetate Cap PO SCH ×2 (07:24→17:38)
[2020-10-04] MEDS: Lisinopril 20 MG Tab PO SCH (07:25)
[2020-10-04] MEDS: FLUoxetine 20 MG Cap PO SCH (07:25)
[2020-10-04] MEDS: Propranolol 80 MG Cap.ER PO SCH (07:25)
[2020-10-04] MEDS: Oxybutynin 5 MG Tab.ER PO SCH (07:26)
[2020-10-04] MEDS: Aspirin 81 MG Tab.Chew PO SCH ×2 (07:27→17:38)
[2020-10-04] MEDS: NOVOLOG INSULIN SUBCUT SCH ×3 (07:27→17:38)
[2020-10-04] MEDS: Cholecalciferol (Vitamin D3) 25 MCG Tab PO SCH (07:30)
[2020-10-04] MEDS: Cyanocobalamin (Vitamin B12) 100 MCG Tab PO SCH (07:30)
[2020-10-04] MEDS: Multivitamin Tab PO SCH (07:30)
--- NOTE | 2020-10-04 13:15 | PCM.PN ---
- General Info Date of Service: 10/04/20 Admission Dx/Problem (Free Text): Admission Diagnosis/Problem Admission Diagnosis/Problem History of arthroplasty of left hip, repair of previous hip replacement Subjective Update: Patient has been having some increased confusion especially in the evening. Nursing states that the patient's confusion is on and off throughout the day. Patient states doing better but no sleeping well. She is wondering if she can take something for sleep. Functional Status: Reports: Pain Controlled, Tolerating Diet, Ambulating - Review of Systems General: Reports: Weakness HEENT: Reports: No Symptoms Pulmonary: Reports: No Symptoms Cardiovascular: Reports: No Symptoms Gastrointestinal: Reports: No Symptoms Genitourinary: Reports: No Symptoms Musculoskeletal: Reports: Joint Pain Skin: Reports: No Symptoms Neurological: Reports: No Symptoms Psychiatric: Reports: Confusion - Patient Data Vitals - Most Recent: Last Vital Signs Temp 97.7 F 10/04/20 08:00 Pulse 85 10/04/20 08:00 Resp 18 10/04/20 08:00 BP 109/60 10/04/20 08:00 Pulse Ox 98 10/04/20 08:00 Weight - Most Recent: 154 lb 9.6 oz I&O - Last 24 Hours: Intake & Output 10/03/20 10/04/20 10/04/20 22:59 06:59 14:59 Intake Total 350 1600 Balance 350 1600 Lab Results Last 24 Hours: Laboratory Results - last 24 hr 10/03/20 Range/Units 17:20 POC Glucose 176 H (65-110) mg/dl Med Orders - Current: Current Medications Acetaminophen (Tylenol Extra Strength) 500 mg PO Q6H PRN PRN Reason: Pain (moderate 4-6) Last Admin: 09/29/20 20:52 Dose: 500 mg Documented by: Aspirin (Aspirin) 81 mg PO BID [facility] Stop: 10/28/20 18:01 Last Admin: 10/04/20 07:27 Dose: 81 mg Documented by: Aspirin (Aspirin) 81 mg PO DAILY [facility] Cholecalciferol (Vitamin D3) 25 mcg PO DAILY [facility] Last Admin: 10/04/20 07:30 Dose: 25 mcg Documented by: Cyanocobalamin (Vitamin B12) 100 mcg PO DAILY [facility] Last Admin: 10/04/20 07:30 Dose: 100 mcg Documented by: Fenofibrate (Fenofibrate) 134 mg PO BEDTIME [facility] Last Admin: 10/03/20 20:08 Dose: 134 mg Documented by: Fluoxetine HCl (Prozac) 20 mg PO DAILY [facility] Last Admin: 10/04/20 07:25 Dose: 20 mg Documented by: Hydrochlorothiazide (Hydrochlorothiazide) 25 mg PO DAILY [facility] Last Admin: 10/04/20 07:23 Dose: 25 mg Documented by: Lisinopril (Prinivil) 40 mg PO DAILY [facility] Last Admin: 10/04/20 07:25 Dose: 40 mg Documented by: Multivitamins/Minerals/Vitamin C (Tab-A-Kacie) 1 tab PO DAILY [facility] Last Admin: 10/04/20 07:30 Dose: 1 tab Documented by: Nitroglycerin (Nitrostat) 0.4 mg SL ASDIRECTED PRN PRN Reason: CHEST DISCOMFORT Omeprazole (Omeprazole) 20 mg PO ACBREAKFAST [facility] Last Admin: 10/04/20 07:23 Dose: 20 mg Documented by: Oxybutynin Chloride (Oxybutynin Er) 10 mg PO DAILY [facility] Last Admin: 10/04/20 07:26 Dose: 10 mg Documented by: Levemir Insulin Pen 100 Unit/Ml Own Med 0 each SUBCUT BEDTIME [facility] Last Admin: 10/03/20 20:09 Dose: 20 each Documented by: Patient's Own Medication 1 Each Novolog Insulin Pen 8 each SUBCUT TID [facility] Last Admin: 10/04/20 11:11 Dose: 8 each Documented by: Propranolol HCl (Inderal La) 80 mg PO DAILY [facility] Last Admin: 10/04/20 07:25 Dose: 80 mg Documented by: Senna/Docusate Sodium (Senna Plus) 2 tab PO DAILY [facility] Last Admin: 10/04/20 07:29 Dose: 2 tab Documented by: Temazepam (Temazepam 15 Mg Cap) 15 mg PO BEDTIME PRN PRN Reason: Sleep Last Admin: 10/03/20 20:12 Dose: 15 mg Documented by: Tramadol HCl (Ultram) 50 mg PO Q4H PRN PRN Reason: Pain (moderate 4-6) Last Admin: 09/30/20 17:44 Dose: 50 mg Documented by: Vit C/Vit E/Zinc/Copper/Lutein (Ocuvite Lutein) 1 each PO BID [facility] Last Admin: 10/04/20 07:24 Dose: 1 each Documented by: Discontinued Medications Acetaminophen (Tylenol Arthritis Pain) 650 mg PO Q8H PRN PRN Reason: Pain Last Admin: 09/25/20 04:19 Dose: 650 mg Documented by: Oxycodone HCl (Oxycodone) 5 mg PO Q3H PRN PRN Reason: Pain Novolog Insulin Pen 100unit/Ml Own Med 0 each SUBCUT TID [facility] Last Admin: 09/23/20 12:07 Dose: Not Given Documented by: Vit C/Vit E/Zinc/Copper/Lutein (Ocuvite Lutein) 1 each PO DAILY [facility] Last Admin: 09/23/20 07:36 Dose: 1 each Documented by: - Exam Quality Assessment: DVT Prophylaxis General: Alert, Cooperative Neck: Supple Lungs: Clear to Auscultation, Normal Respiratory Effort Cardiovascular: Regular Rate, Regular Rhythm GI/Abdominal Exam: Normal Bowel Sounds, Soft, Non-Tender Back Exam: Normal Inspection, Full Range of Motion Extremities: Normal Inspection, No Pedal Edema, Normal Capillary Refill Skin: Warm, Dry, Intact Wound/Incisions: Healing Well, Dressing Dry and Intact Neurological: No New Focal Deficit Psy/Mental Status: Alert, Normal Affect, Normal Mood - Patient Data Lab Results Last 24 hrs: Laboratory Results - last 24 hr 10/03/20 Range/Units 17:20 POC Glucose 176 H (65-110) mg/dl Result Diagrams: 09/26/20 07:25 09/26/20 07:25 Sepsis Event Note - Evaluation Sepsis Screening Result: No Definite Risk - Focused Exam Vital Signs: Vital Signs Temp Pulse Resp BP BP Pulse Ox 10/04/20 08:00 97.7 F 85 18 109/60 98 10/04/20 07:25 0/0 L - Problem List & Annotations (1) Anemia SNOMED Code(s): 344865105 Code(s): D64.9 - ANEMIA, UNSPECIFIED Status: Resolved Priority: Medium Current Visit: Yes Qualifiers: Anemia type: other cause (2) S/P total hip arthroplasty SNOMED Code(s): 991668994563, 110860908452 Code(s): Z96.649 - PRESENCE OF UNSPECIFIED ARTIFICIAL HIP JOINT Status: Acute Priority: High Current Visit: Yes Onset Date: 09/16/20 Qualifiers: Laterality: left Qualified Code(s): Z96.642 - Presence of left artificial hip joint Annotation/Comment:: . On Aspirin BID for preventation of DVT, continue with physical and occupational therapy. (3) Cognitive impairment SNOMED Code(s): 391419635 Code(s): R41.89 - OTH SYMPTOMS AND SIGNS W COGNITIVE FUNCTIONS AND AWARENESS Status: Chronic Priority: Medium Current Visit: Yes Annotation/Comment:: Some underlying dementia noted, patient's confusion seems to come and go. The nursing staff states that overall the patient has been improving in regards to her short-term memory loss. Patient states ready to go home tomorrow. (4) HTN (hypertension) SNOMED Code(s): 25688256 Code(s): I10 - ESSENTIAL (PRIMARY) HYPERTENSION Status: Chronic Priority: Low Current Visit: Yes Qualifiers: Hypertension type: essential hypertension Qualified Code(s): I10 - Essential (primary) hypertension Annotation/Comment:: vitals noted (5) IDDM (insulin dependent diabetes mellitus) SNOMED Code(s): 62295065 Code(s): OEX3523 - Status: Chronic Priority: Low Current Visit: Yes Annotation/Comment:: Accuchecks four times a day and as needed - Problem List Review Problem List Initiated/Reviewed/Updated: Yes - My Orders Last 24 Hours: My Active Orders 10/04/20 07:54 Hip Min 2V or 3V Lt [CR] Routine - Plan Plan:: as above. PT/OT did initial evaluation of patient today and feels that overall she is doing well. May need as little as 2-3 weeks stay on Swing Bed. Main concern is that she be able to climb 9 steps to get into her home once discharged. 09/23/[address] Alaniz. Reviewed hospital records and lab work. Reviewed recent lab work and vitals. Continue to monitor blood sugars frequently. Ice to left hip to help with swelling. Mini Mental exam to be completed by case repairer. Continue to work with PT/OT in hopes for the patient to return to home upon discharge. Millicent Howard CNP 09/26/2020 Patient is needing swing bed stay for continual rehabilitation in regards to her left hip revision, requires physical and occupational therapy. The patient is also needing further monitoring in regards to her blood sugars as her diet is up and down. Continue to monitor the cognitive function and the patient does require reminders in regards to her ADLs. Millicent Howard CNP 09/30/2020 Late entry Patient was seen and states that she is doing quite well. She continues in physical and occupational therapy. The patient mentions that she may be going home within the next week or so. She has not been able to sleep and she is wondering if she could try something for sleep. Temazepam 15 mg nightly as needed ordered. Patient seems to be more clear today. Less confusion is noted. Millicent Howard CNP 10/04/2020 Patient is seen in swing bed. The patient states that she is doing quite well. Her pain is controlled on Tylenol. She plans to go home on 10/05/2020 with home health as well as home physical and occupational therapy. Patient states that using the temazepam nightly as needed has helped. She would like to continue this at home. Patient will continue to follow with orthopedics as well as on the DVT prophylactics of the aspirin. Patient will have a follow-up in the [place] [facility] in 2 weeks' time. Patient has been having some discomfort to the left hip area. Ordered x-ray of her left hip before she is to be discharged to home. Millicent Howard CNP
[2020-10-04] MEDS: Fenofibrate,Micronized 134 MG Cap PO SCH (19:19)
[2020-10-04] MEDS: Temazepam 15 MG Cap PO PRN (19:20)
[2020-10-04] MEDS: LEVEMIR INSULIN SUBCUT SCH (19:24)
[2020-10-05] MEDS: Omeprazole 20 MG Cap.CR PO SCH (07:32)
[2020-10-05] MEDS: Propranolol 80 MG Cap.ER PO SCH (07:33)
[2020-10-05] MEDS: Aspirin 81 MG Tab.Chew PO SCH (07:33)
[2020-10-05] MEDS: Hydrochlorothiazide 25 MG Tab PO SCH (07:33)
[2020-10-05] MEDS: Lutein/Minerals/Vitamin C/Vitamin E Acetate Cap PO SCH (07:34)
[2020-10-05] MEDS: Lisinopril 20 MG Tab PO SCH (07:36)
[2020-10-05] MEDS: Multivitamin Tab PO SCH (07:37)
[2020-10-05] MEDS: FLUoxetine 20 MG Cap PO SCH (07:37)
[2020-10-05] MEDS: NOVOLOG INSULIN SUBCUT SCH (07:38)
[2020-10-05] MEDS: Cyanocobalamin (Vitamin B12) 100 MCG Tab PO SCH (07:38)
[2020-10-05] MEDS: Cholecalciferol (Vitamin D3) 25 MCG Tab PO SCH (07:38)
[2020-10-05] MEDS: Oxybutynin 5 MG Tab.ER PO SCH (08:11)
--- NOTE | 2020-10-05 09:02 | PCM.PN ---
- General Info Date of Service: 10/05/20 Admission Dx/Problem (Free Text): Admission Diagnosis/Problem Admission Diagnosis/Problem History of arthroplasty of left hip, repair of previous hip replacement Subjective Update: Patient has been having some increased confusion especially in the evening. Nursing states that the patient's confusion is on and off throughout the day. Patient states doing better but no sleeping well. She is wondering if she can take something for sleep. Xray obtained on 10/04/2020, a delay in receiving the report due to technically difficulties. Radiologist reads out change in left hip. Patient's pain is tolerable with Tylenol. Functional Status: Reports: Pain Controlled, Tolerating Diet - Review of Systems General: Reports: No Symptoms, Weakness HEENT: Reports: No Symptoms Pulmonary: Reports: No Symptoms Cardiovascular: Reports: No Symptoms Gastrointestinal: Reports: No Symptoms Genitourinary: Reports: Frequency, Urgency Musculoskeletal: Reports: No Symptoms Skin: Reports: No Symptoms Neurological: Reports: No Symptoms Psychiatric: Reports: Confusion - Patient Data Vitals - Most Recent: Last Vital Signs Temp 97.4 F 10/04/20 19:26 Pulse 85 10/04/20 08:00 Resp 18 10/04/20 08:00 BP 0/0 L 10/05/20 07:36 Pulse Ox 98 10/04/20 08:00 Weight - Most Recent: 154 lb 3.2 oz I&O - Last 24 Hours: Intake & Output 10/04/20 10/05/20 10/05/20 22:59 06:59 14:59 Intake Total 480 640 Balance 480 640 Lab Results Last 24 Hours: Laboratory Results - last 24 hr 10/04/20 10/04/20 10/04/20 Range/Units 07:35 11:15 17:26 POC Glucose 157 H 163 H 199 H (65-110) mg/dl 10/05/20 Range/Units 07:42 POC Glucose 105 (65-110) mg/dl Med Orders - Current: Current Medications Acetaminophen (Tylenol Extra Strength) 500 mg PO Q6H PRN PRN Reason: Pain (moderate 4-6) Last Admin: 09/29/20 20:52 Dose: 500 mg Documented by: Aspirin (Aspirin) 81 mg PO BID [facility] Stop: 10/28/20 18:01 Last Admin: 10/05/20 07:33 Dose: 81 mg Documented by: Aspirin (Aspirin) 81 mg PO DAILY [facility] Cholecalciferol (Vitamin D3) 25 mcg PO DAILY [facility] Last Admin: 10/05/20 07:38 Dose: 25 mcg Documented by: Cyanocobalamin (Vitamin B12) 100 mcg PO DAILY [facility] Last Admin: 10/05/20 07:38 Dose: 100 mcg Documented by: Fenofibrate (Fenofibrate) 134 mg PO BEDTIME [facility] Last Admin: 10/04/20 19:19 Dose: 134 mg Documented by: Fluoxetine HCl (Prozac) 20 mg PO DAILY [facility] Last Admin: 10/05/20 07:37 Dose: 20 mg Documented by: Hydrochlorothiazide (Hydrochlorothiazide) 25 mg PO DAILY [facility] Last Admin: 10/05/20 07:33 Dose: 25 mg Documented by: Lisinopril (Prinivil) 40 mg PO DAILY [facility] Last Admin: 10/05/20 07:36 Dose: 40 mg Documented by: Multivitamins/Minerals/Vitamin C (Tab-A-Kacie) 1 tab PO DAILY [facility] Last Admin: 10/05/20 07:37 Dose: 1 tab Documented by: Nitroglycerin (Nitrostat) 0.4 mg SL ASDIRECTED PRN PRN Reason: CHEST DISCOMFORT Omeprazole (Omeprazole) 20 mg PO ACBREAKFAST [facility] Last Admin: 10/05/20 07:32 Dose: 20 mg Documented by: Oxybutynin Chloride (Oxybutynin 5 Mg Tab.Er) 10 mg PO DAILY [facility] Last Admin: 10/05/20 08:11 Dose: 10 mg Documented by: Levemir Insulin Pen 100 Unit/Ml Own Med 0 each SUBCUT BEDTIME [facility] Last Admin: 10/04/20 19:24 Dose: 1 each Documented by: Patient's Own Medication 1 Each Novolog Insulin Pen 8 each SUBCUT TID [facility] Last Admin: 10/05/20 07:38 Dose: 8 each Documented by: Propranolol HCl (Inderal La) 80 mg PO DAILY [facility] Last Admin: 10/05/20 07:33 Dose: 80 mg Documented by: Senna/Docusate Sodium (Senna Plus) 2 tab PO DAILY [facility] Last Admin: 10/05/20 07:37 Dose: 2 tab Documented by: Temazepam (Temazepam 15 Mg Cap) 15 mg PO BEDTIME PRN PRN Reason: Sleep Last Admin: 10/04/20 19:20 Dose: 15 mg Documented by: Tramadol HCl (Ultram) 50 mg PO Q4H PRN PRN Reason: Pain (moderate 4-6) Last Admin: 09/30/20 17:44 Dose: 50 mg Documented by: Vit C/Vit E/Zinc/Copper/Lutein (Ocuvite Lutein) 1 each PO BID [facility] Last Admin: 10/05/20 07:34 Dose: 1 each Documented by: Discontinued Medications Acetaminophen (Tylenol Arthritis Pain) 650 mg PO Q8H PRN PRN Reason: Pain Last Admin: 09/25/20 04:19 Dose: 650 mg Documented by: Oxycodone HCl (Oxycodone) 5 mg PO Q3H PRN PRN Reason: Pain Novolog Insulin Pen 100unit/Ml Own Med 0 each SUBCUT TID [facility] Last Admin: 09/23/20 12:07 Dose: Not Given Documented by: Vit C/Vit E/Zinc/Copper/Lutein (Ocuvite Lutein) 1 each PO DAILY [facility] Last Admin: 09/23/20 07:36 Dose: 1 each Documented by: - Exam Quality Assessment: DVT Prophylaxis General: Alert, Cooperative, No Acute Distress Neck: Supple Lungs: Clear to Auscultation, Normal Respiratory Effort Cardiovascular: Regular Rate, Regular Rhythm, Murmurs GI/Abdominal Exam: Normal Bowel Sounds, Soft, Non-Tender, No Organomegaly Back Exam: Normal Inspection Extremities: Normal Inspection, Normal Range of Motion, Non-Tender, No Pedal Edema Skin: Warm Wound/Incisions: Healing Well, Dressing Dry and Intact Neurological: No New Focal Deficit Psy/Mental Status: Alert, Normal Affect, Normal Mood - Patient Data Lab Results Last 24 hrs: Laboratory Results - last 24 hr 10/04/20 10/04/20 10/04/20 Range/Units 07:35 11:15 17:26 POC Glucose 157 H 163 H 199 H (65-110) mg/dl 10/05/20 Range/Units 07:42 POC Glucose 105 (65-110) mg/dl Result Diagrams: 09/26/20 07:25 09/26/20 07:25 Sepsis Event Note - Evaluation Sepsis Screening Result: No Definite Risk - Focused Exam Vital Signs: Vital Signs BP 10/05/20 07:36 0/0 L - Problem List & Annotations (1) Anemia SNOMED Code(s): 476676206 Code(s): D64.9 - ANEMIA, UNSPECIFIED Status: Resolved Priority: Medium Current Visit: Yes Qualifiers: Anemia type: other cause (2) S/P total hip arthroplasty SNOMED Code(s): 101548460759, 533518296795 Code(s): Z96.649 - PRESENCE OF UNSPECIFIED ARTIFICIAL HIP JOINT Status: Acute Priority: High Current Visit: Yes Onset Date: 09/16/20 Qualifiers: Laterality: left Qualified Code(s): Z96.642 - Presence of left artificial hip joint Annotation/Comment:: . On Aspirin BID for preventation of DVT, continue with physical and occupational therapy. (3) Cognitive impairment SNOMED Code(s): 140857171 Code(s): R41.89 - [facility] SYMPTOMS AND SIGNS W COGNITIVE FUNCTIONS AND AWARENESS Status: Chronic Priority: Medium Current Visit: Yes Annotation/Comment:: Some underlying dementia noted, patient's confusion seems to come and go. The nursing staff states that overall the patient has been improving in regards to her short-term memory loss. Patient states ready to go home tomorrow. (4) HTN (hypertension) SNOMED Code(s): 03717782 Code(s): I10 - ESSENTIAL (PRIMARY) HYPERTENSION Status: Chronic Priority: Low Current Visit: Yes Qualifiers: Hypertension type: essential hypertension Qualified Code(s): I10 - Essential (primary) hypertension Annotation/Comment:: vitals noted (5) IDDM (insulin dependent diabetes mellitus) SNOMED Code(s): 66536911 Code(s): LQU0745 - Status: Chronic Priority: Low Current Visit: Yes Annotation/Comment:: Accuchecks four times a day and as needed - Problem List Review Problem List Initiated/Reviewed/Updated: Yes - My Orders Last 24 Hours: My Active Orders 10/05/20 13:23 Ready for Discharge [RC] PER UNIT ROUTINE - Plan Plan:: as above. PT/OT did initial evaluation of patient today and feels that overall she is doing well. May need as little as 2-3 weeks stay on Swing Bed. Main concern is that she be able to climb 9 steps to get into her home once discharged. 09/23/[address] Alaniz. Reviewed hospital records and lab work. Reviewed recent lab work and vitals. Continue to monitor blood sugars frequently. Ice to left hip to help with swelling. Mini Mental exam to be completed by pillowcase turner. Continue to work with PT/OT in hopes for the patient to return to home upon discharge. Millicent Howard CNP 09/26/2020 Patient is needing swing bed stay for continual rehabilitation in regards to her left hip revision, requires physical and occupational therapy. The patient is also needing further monitoring in regards to her blood sugars as her diet is up and down. Continue to monitor the cognitive function and the patient does require reminders in regards to her ADLs. Millicent Howard CNP 09/30/2020 Late entry Patient was seen and states that she is doing quite well. She continues in physical and occupational therapy. The patient mentions that she may be going home within the next week or so. She has not been able to sleep and she is wondering if she could try something for sleep. Temazepam 15 mg nightly as needed ordered. Patient seems to be more clear today. Less confusion is noted. Millicent Howard CNP 10/04/2020 Patient is seen in swing bed. The patient states that she is doing quite well. Her pain is controlled on Tylenol. She plans to go home on 10/05/2020 with home health as well as home physical and occupational therapy. Patient states that using the temazepam nightly as needed has helped. She would like to continue this at home. Patient will continue to follow with orthopedics as well as on the DVT prophylactics of the aspirin. Patient will have a follow-up in the [place] clinic in 2 weeks' time. Patient has been having some discomfort to the left hip area. Ordered x-ray of her left hip before she is to be discharged to home. Millicent Howard CNP 10/05/2020 Reviewed Xray report with Dr Concepcion [facility] [place], who said to go clinically as the patient is doing well and pain controlled on Tylenol. The patient will have pain in left hip area on and off only when walking. Appointment already set up with Dr Cherry on October 10, 2020. Daughter here and states arrangements have been made for the patient to get to [place] on that day. Patient discharges on current medications and continue Aspirin BID as directed by orthopedic surgeon. Millicent Howard CNP
--- NOTE | 2020-10-05 09:29 | PCM.DCSUM1 ---
Discharge Summary - Hospital Course Free Text/Narrative:: Patient is a 89 year old female who was admitted to [facility] after having left hip revision on 09/16/[address] Dilip Prieto. The patient has been doing well in physical therapy and has progressed to return home with home health nursing. Patient has had issues with sleep, used Restoril which helped. Has had issues with nocturia which has been going on for years, patient has been on and off of medication for this issue. Diagnosis: Stroke: No - Discharge Data Discharge Date: 10/05/20 Discharge Disposition: Home, Self-Care 01 Condition: Good - Referral to Home Health Date of Face to Face Encounter: 10/04/20 Primary Care Physician: PCP None - Discharge Diagnosis/Problem(s) (1) Anemia SNOMED Code(s): 520672647 ICD Code: D64.9 - ANEMIA, UNSPECIFIED Status: Resolved Priority: Medium Current Visit: Yes Qualifiers: Anemia type: other cause (2) S/P total hip arthroplasty SNOMED Code(s): 958999305392, 736405974362 ICD Code: Z96.649 - PRESENCE OF UNSPECIFIED ARTIFICIAL HIP JOINT Status: Acute Priority: High Current Visit: Yes Onset Date: 09/16/20 Problem Details: . On Aspirin BID for preventation of DVT, continue with physical and occupational therapy. Qualifiers: Laterality: left Qualified Code(s): Z96.642 - Presence of left artificial hip joint (3) Cognitive impairment SNOMED Code(s): 445182597 ICD Code: R41.89 - OTH SYMPTOMS AND SIGNS W COGNITIVE FUNCTIONS AND AWARENESS Status: Chronic Priority: Medium Current Visit: Yes Problem Details: Some underlying dementia noted, patient's confusion seems to come and go. The nursing staff states that overall the patient has been improving in regards to her short-term memory loss. Patient states ready to go home tomorrow. (4) HTN (hypertension) SNOMED Code(s): 94743957 ICD Code: I10 - ESSENTIAL (PRIMARY) HYPERTENSION Status: Chronic Priority: Low Current Visit: Yes Problem Details: vitals noted Qualifiers: Hypertension type: essential hypertension Qualified Code(s): I10 - Essential (primary) hypertension (5) IDDM (insulin dependent diabetes mellitus) SNOMED Code(s): 83535165 ICD Code: [id number] - Status: Chronic Priority: Low Current Visit: Yes Problem Details: Accuchecks four times a day and as needed - Patient Summary/Data Consults: Consultations 09/20/20 16:06 Consult to Case Management/[employer] Prescription Clerk [CONS] Routine OT Evaluation and Treatment [CONS] Routine PT Evaluation and Treatment [CONS] Routine - Patient Instructions Diet: Diabetic Diet Activity: As Tolerated Driving: Do Not Drive Showering/Bathing: May Shower Wound/Incision Care: Keep Operative Site/Wound Site Clean and Dry Notify Provider of: Fever, Increased Pain, Swelling and Redness, Drainage, Nausea and/or Vomiting - Discharge Plan *PRESCRIPTION DRUG MONITORING PROGRAM REVIEWED*: Yes *COPY OF PRESCRIPTION DRUG MONITORING REPORT IN PATIENT CHEN: Not Applicable Prescriptions/Med Rec: Acetaminophen [Arthritis Pain Relief] 650 mg PO Q6HR PRN #60 tablet.er PRN Reason: Pain Temazepam [Restoril] 15 mg PO BEDTIME PRN 20 Days #20 cap PRN Reason: Sleep Home Medications: Home Meds Insulin Aspart [Novolog Flexpen] 10 units SUBCUT TID 08/03/16 [History] Insulin Detemir [Levemir] 20 unit SUBCUT BEDTIME 08/03/16 [History] Acetaminophen [Tylenol Arthritis] 1 tab PO Q6H PRN 04/04/20 [History] Cholecalciferol (Vitamin D3) [Vitamin D3] 1 cap PO DAILY 04/04/20 [History] FLUoxetine HCl [Prozac] 1 cap PO DAILY 04/04/20 [History] Fenofibrate Nanocrystallized [Fenofibrate] 1 tab PO BEDTIME 04/04/20 [History] Nitroglycerin 1 tab SL ASDIRECTED 04/04/20 [History] Omeprazole 1 tab PO DAILY 04/04/20 [History] Propranolol [Inderal LA] 1 cap PO DAILY 04/04/20 [History] hydroCHLOROthiazide [Hydrochlorothiazide] 1 tab PO DAILY 04/04/20 [History] lisinopriL [Lisinopril] 2 tab PO DAILY 04/04/20 [History] Cyanocobalamin (Vitamin B-12) [Vitamin B-12] 100 mcg PO DAILY 09/20/20 [History] Lutein/Minerals/Vit A,C & E [Ocuvite] 1 tab PO BID 09/20/20 [History] Multivit-Min/FA/Lycopene/Lut [Abc Plus Tablet] 1 each PO DAILY 09/20/20 [History] Oxybutynin Chloride [Ditropan Xl] 10 mg PO DAILY 09/20/20 [History] Sennosides/Docusate Sodium [Senna-Docusate Sodium Tablet] 2 each PO DAILY PRN 09/20/20 [History] oxyCODONE 5 mg PO Q3H PRN 09/20/20 [History] Acetaminophen [Arthritis Pain Relief] 650 mg PO Q6HR PRN #60 tablet.er 10/04/20 [Rx] Aspirin 81 mg PO BID #50 10/04/20 [Rx] Temazepam [Restoril] 15 mg PO BEDTIME PRN 20 Days #20 cap 10/04/20 [Rx] Oxygen Therapy Mode: Room Air Referrals: Millicent Howard NP [Nurse Practitioner] - - Discharge Summary/Plan Comment DC Time >30 min.: No Discharge Summary/Plan Comment: The patient is a discharged to home with home health care therapy. The patient will check blood sugars 3-4 times a day and as needed, continued on same insulin. Continue on Restoril as needed for sleep. Continue to use Tylenol as needed for pain. Patient has [facility] at home already set up. Her son lives with her and is able to help with some of her cares. Patient to follow up at [facility] in 2 weeks with Millicent Howard CNP. Follow up with orthopedics already set up. Patient and daughter have no further questions or concerns. Millicent Howard CNP - Patient Data Vitals - Most Recent: Last Vital Signs Temp 97.4 F 10/04/20 19:26 Pulse 85 10/04/20 08:00 Resp 18 10/04/20 08:00 BP 0/0 L 10/05/20 07:36 Pulse Ox 98 10/04/20 08:00 Weight - Most Recent: 154 lb 3.2 oz I&O - Last 24 hours: Intake & Output 10/04/20 10/05/20 10/05/20 22:59 06:59 14:59 Intake Total 480 640 Balance 480 640 Lab Results - Last 24 hrs: Laboratory Results - last 24 hr 10/04/20 10/04/20 10/04/20 Range/Units 07:35 11:15 17:26 POC Glucose 157 H 163 H 199 H (65-110) mg/dl 10/05/20 Range/Units 07:42 POC Glucose 105 (65-110) mg/dl Med Orders - Current: Current Medications Acetaminophen (Tylenol Extra Strength) 500 mg PO Q6H PRN PRN Reason: Pain (moderate 4-6) Last Admin: 09/29/20 20:52 Dose: 500 mg Documented by: Aspirin (Aspirin) 81 mg PO BID [facility] Stop: 10/28/20 18:01 Last Admin: 10/05/20 07:33 Dose: 81 mg Documented by: Aspirin (Aspirin) 81 mg PO DAILY [facility] Cholecalciferol (Vitamin D3) 25 mcg PO DAILY [facility] Last Admin: 10/05/20 07:38 Dose: 25 mcg Documented by: Cyanocobalamin (Vitamin B12) 100 mcg PO DAILY [facility] Last Admin: 10/05/20 07:38 Dose: 100 mcg Documented by: Fenofibrate (Fenofibrate) 134 mg PO BEDTIME [facility] Last Admin: 10/04/20 19:19 Dose: 134 mg Documented by: Fluoxetine HCl (Prozac) 20 mg PO DAILY [facility] Last Admin: 10/05/20 07:37 Dose: 20 mg Documented by: Hydrochlorothiazide (Hydrochlorothiazide) 25 mg PO DAILY [facility] Last Admin: 10/05/20 07:33 Dose: 25 mg Documented by: Lisinopril (Prinivil) 40 mg PO DAILY [facility] Last Admin: 10/05/20 07:36 Dose: 40 mg Documented by: Multivitamins/Minerals/Vitamin C (Tab-A-Kacie) 1 tab PO DAILY [facility] Last Admin: 10/05/20 07:37 Dose: 1 tab Documented by: Nitroglycerin (Nitrostat) 0.4 mg SL ASDIRECTED PRN PRN Reason: CHEST DISCOMFORT Omeprazole (Omeprazole) 20 mg PO ACBREAKFAST [facility] Last Admin: 10/05/20 07:32 Dose: 20 mg Documented by: Oxybutynin Chloride (Oxybutynin 5 Mg Tab.Er) 10 mg PO DAILY [facility] Last Admin: 10/05/20 08:11 Dose: 10 mg Documented by: Levemir Insulin Pen 100 Unit/Ml Own Med 0 each SUBCUT BEDTIME [facility] Last Admin: 10/04/20 19:24 Dose: 1 each Documented by: Patient's Own Medication 1 Each Novolog Insulin Pen 8 each SUBCUT TID [facility] Last Admin: 10/05/20 07:38 Dose: 8 each Documented by: Propranolol HCl (Inderal La) 80 mg PO DAILY [facility] Last Admin: 10/05/20 07:33 Dose: 80 mg Documented by: Senna/Docusate Sodium (Senna Plus) 2 tab PO DAILY [facility] Last Admin: 10/05/20 07:37 Dose: 2 tab Documented by: Temazepam (Temazepam 15 Mg Cap) 15 mg PO BEDTIME PRN PRN Reason: Sleep Last Admin: 10/04/20 19:20 Dose: 15 mg Documented by: Tramadol HCl (Ultram) 50 mg PO Q4H PRN PRN Reason: Pain (moderate 4-6) Last Admin: 09/30/20 17:44 Dose: 50 mg Documented by: Vit C/Vit E/Zinc/Copper/Lutein (Ocuvite Lutein) 1 each PO BID [facility] Last Admin: 10/05/20 07:34 Dose: 1 each Documented by: Discontinued Medications Acetaminophen (Tylenol Arthritis Pain) 650 mg PO Q8H PRN PRN Reason: Pain Last Admin: 09/25/20 04:19 Dose: 650 mg Documented by: Oxycodone HCl (Oxycodone) 5 mg PO Q3H PRN PRN Reason: Pain Novolog Insulin Pen 100unit/Ml Own Med 0 each SUBCUT TID [facility] Last Admin: 09/23/20 12:07 Dose: Not Given Documented by: Vit C/Vit E/Zinc/Copper/Lutein (Ocuvite Lutein) 1 each PO DAILY [facility] Last Admin: 09/23/20 07:36 Dose: 1 each Documented by:
[2020-10-05 10:11] VITALS: BP 120/64; PULSE 80
[2020-10-29] MEDS ORDERED: Aspirin 81 MG Tab.Chew PO SCH (08:00)
== END 2020-10-05 10:14 | disposition home health service (06) | DRG 561 ==
LOC: UNDOADMIN 14:34 → LL.MS 14:34 → LL.SWG 09-27 17:00
PROVIDERS: ADMIT Emergency Medicine; ATTEND Nurse Practitioner Family
DX: Z47.1 Aftercare following joint replacement surgery (principal); Z96.642 Presence of left artificial hip joint; R41.89 Other symptoms and signs involving cognitive functions and awareness; I10 Essential (primary) hypertension; D64.9 Anemia, unspecified; E11.9 Type 2 diabetes mellitus without complications; H54.7 Unspecified visual loss; I25.10 Atherosclerotic heart disease of native coronary artery without angina pectoris; K21.9 Gastro-esophageal reflux disease without esophagitis; R33.9 Retention of urine, unspecified; R32 Unspecified urinary incontinence; M19.90 Unspecified osteoarthritis, unspecified site; M81.0 Age-related osteoporosis without current pathological fracture; G89.29 Other chronic pain; M54.9 Dorsalgia, unspecified; F03.90 Unspecified dementia, unspecified severity, without behavioral disturbance, psychotic disturbance, mood disturbance, and anxiety; Z90.49 Acquired absence of other specified parts of digestive tract; Z96.659 Presence of unspecified artificial knee joint; Z79.4 Long term (current) use of insulin; Z79.82 Long term (current) use of aspirin; Z79.899 Other long term (current) drug therapy; Z88.8 Allergy status to other drugs, medicaments and biological substances; Z79.01 Long term (current) use of anticoagulants; Z95.2 Presence of prosthetic heart valve; Z95.5 Presence of coronary angioplasty implant and graft; Z98.49 Cataract extraction status, unspecified eye
CPT/HCPCS: 36415; 80048; 80053; 81001; 82962; 85025; 97110-GO; 97110-GP; 97162-GP; 97165-GO; 97530-GP; 97535-GO; 99305; A9270-GY

== ENCOUNTER 2020-11-11 14:57 | Emergency (ER) | payer MEDICARE, OTHER ==
[2020-11-11 15:31] VITALS: PULSE 66
[2020-11-11 15:36] LABS: CHLORIDE,CL 102 mmol/L (98-107); SODIUM,NA 138 mmol/L (136-145)
--- NOTE | 2020-11-11 16:00 | EDM.PDOC ---
ED HPI GENERAL MEDICAL PROBLEM - General Chief Complaint: Abdominal Pain Stated Complaint: constipation Time Seen by Provider: 11/11/20 15:12 Source of Information: Reports: Patient History Limitations: Reports: No Limitations - History of Present Illness INITIAL COMMENTS - FREE TEXT/NARRATIVE: Pt states no bowel movement for 2 days No fever No N/V No dysuria Onset: Gradual Duration: Day(s): Location: Reports: Abdomen Severity: Moderate - Related Data Allergies Allergy/AdvReac Type Severity Reaction Status Date / Time Dnfdrht-Smd-Qje Reductase Allergy Cannot Verified 11/11/20 15:27 Inhibitor Remember Home Meds: Home Meds Insulin Aspart [Novolog Flexpen] 10 units SUBCUT TID 08/03/16 [History] Insulin Detemir [Levemir] 20 unit SUBCUT BEDTIME 08/03/16 [History] Acetaminophen [Tylenol Arthritis] 1 tab PO Q6H PRN 04/04/20 [History] Cholecalciferol (Vitamin D3) [Vitamin D3] 1 cap PO DAILY 04/04/20 [History] FLUoxetine HCl [Prozac] 1 cap PO DAILY 04/04/20 [History] Fenofibrate Nanocrystallized [Fenofibrate] 1 tab PO BEDTIME 04/04/20 [History] Nitroglycerin 1 tab SL ASDIRECTED 04/04/20 [History] Omeprazole 1 tab PO DAILY 04/04/20 [History] Propranolol [Inderal LA] 1 cap PO DAILY 04/04/20 [History] hydroCHLOROthiazide [Hydrochlorothiazide] 1 tab PO DAILY 04/04/20 [History] lisinopriL [Lisinopril] 2 tab PO DAILY 04/04/20 [History] Cyanocobalamin (Vitamin B-12) [Vitamin B-12] 100 mcg PO DAILY 09/20/20 [History] Lutein/Minerals/Vit A,C & E [Ocuvite] 1 tab PO BID 09/20/20 [History] Multivit-Min/FA/Lycopene/Lut [Abc Plus Tablet] 1 each PO DAILY 09/20/20 [History] Oxybutynin Chloride [Ditropan Xl] 10 mg PO DAILY 09/20/20 [History] Sennosides/Docusate Sodium [Senna-Docusate Sodium Tablet] 2 each PO DAILY PRN 09/20/20 [History] oxyCODONE 5 mg PO Q3H PRN 09/20/20 [History] Acetaminophen [Arthritis Pain Relief] 650 mg PO Q6HR PRN #60 tablet.er 10/04/20 [Rx] Aspirin 81 mg PO BID #50 10/04/20 [Rx] Temazepam [Restoril] 15 mg PO BEDTIME PRN 20 Days #20 cap 10/04/20 [Rx] Past Medical History HEENT History: Reports: Cataract, Impaired Vision Other HEENT History: Wears glassess Cardiovascular History: Reports: CAD (LAD stent 2016), Heart Murmur, 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), Hypertension, Other (See Below) Other Cardiovascular History: NEYMAR valve Gastrointestinal History: Reports: Cholelithiasis, GERD Genitourinary History: Reports: Retention, Urinary, Urinary Incontinence 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: Musculoskeletal History: Reports: Arthritis, Back Pain, Chronic, Osteoporosis Psychiatric History: Reports: Dementia Endocrine/Metabolic History: Reports: Diabetes, Type II, IDDM Hematologic History: Reports: Anemia - Infectious Disease History Infectious Disease History: Reports: Chicken Pox - Past Surgical History HEENT Surgical History: Reports: Cataract Surgery Cardiovascular Surgical History: Reports: Coronary Artery Stent, Valve Replacement GI Surgical History: Reports: Appendectomy, Cholecystectomy Musculoskeletal Surgical History: Reports: Hip Replacement, Knee Replacement Social & Family History - Family History Family Medical History: No Pertinent Family History - Caffeine Use Caffeine Use: Reports: Coffee, Soda ED ROS GENERAL - Review of Systems Review Of Systems: See Below HEENT: Reports: No Symptoms Respiratory: Reports: No Symptoms Cardiovascular: Reports: No Symptoms GI/Abdominal: Reports: Abdominal Pain, Constipation : Reports: No Symptoms Musculoskeletal: Reports: No Symptoms Skin: Reports: No Symptoms Neurological: Reports: No Symptoms ED EXAM, GI/ABD - Physical Exam Exam: See Below Exam Limited By: No Limitations General Appearance: Alert, WD/WN, Mild Distress Throat/Mouth: Normal Oropharynx Neck: Supple Respiratory/Chest: Lungs Clear Cardiovascular: Regular Rate, Rhythm GI/Abdominal Exam: Soft, Non-Tender Extremities: Normal Inspection Neurological: Alert, Oriented Psychiatric: Normal Affect, Normal Mood Course - Vital Signs Last Recorded V/S: Last Vital Signs Temp 97.9 F 11/11/20 15:00 Pulse 66 11/11/20 15:00 Resp 18 11/11/20 15:00 BP 170/60 H 11/11/20 15:00 Pulse Ox 99 11/11/20 15:00 - Orders/Labs/Meds Orders: Active Orders 24 hr Category Date Time Status Enema [RC] ASDIRECTED Care 11/11/20 15:43 Active Abdomen 2V AP Flat Upright [CR] Stat Exams 11/11/20 14:58 Taken UA W/MICROSCOPIC [URIN] Stat Lab 11/11/20 15:40 Results Labs: Laboratory Tests 11/11/20 11/11/20 11/11/20 Range/Units 15:18 15:18 15:40 WBC 8.9 (4.0-10.2) K/uL RBC 3.27 L (3.77-5.09) M/uL Hgb 10.8 L (11.7-15.5) g/dL Hct 32.6 L (34.0-46.0) % MCV 99.7 H (84.0-98.0) fL MCH 33.0 (28.2-33.3) pg MCHC 33.1 (31.7-36.0) g/dL RDW 13.5 (11.2-14.1) % Plt Count 311 D (150-350) K/uL Neut % (Auto) 72.9 (45.0-80.0) % Lymph % (Auto) 18.5 (10.0-50.0) % [place] % (Auto) 5.4 (2.0-14.0) % Eos % (Auto) 2.9 (0.0-5.0) % Baso % (Auto) 0.3 (0.0-2.0) % Neut # (Auto) 6.49 (1.40-7.00) K/uL Lymph # (Auto) 1.65 (0.50-3.50) K/uL [place] # (Auto) 0.48 (0.00-1.00) K/uL Eos # (Auto) 0.26 (0.00-0.50) K/uL Baso # (Auto) 0.03 (0.00-0.20) K/uL Sodium 138 (136-145) mmol/L Potassium 4.4 (3.5-5.1) mmol/L Chloride 102 (98-107) mmol/L Carbon Dioxide 27.1 (21.0-32.0) mmol/L BUN 38 H (7-18) mg/dL Creatinine 1.07 (0.51-1.17) mg/dL Est Cr Clr Drug Dosing TNP Estimated GFR (MDRD) 48 mL/min Glucose 189 H (70-99) mg/dL Calcium 8.9 (8.5-10.1) mg/dL Total Bilirubin 0.3 (0.2-1.0) mg/dL AST 18 (15-37) U/L ALT 24 (12-78) U/L Alkaline Phosphatase 191 H (46-116) IU/L Total Protein 7.3 (6.4-8.2) g/dL Albumin 3.7 (3.4-5.0) g/dL Urine Color Yellow Urine Appearance Clear Urine pH 6.5 (5.0-9.0) Ur Specific [place] 1.020 (1.005-1.030) Urine Protein 100 H (NEGATIVE) mg/dL Urine Glucose (UA) Negative (NEGATIVE) mg/dL Urine Ketones Negative (NEGATIVE) mg/dL Urine Occult Blood Trace-intact H (NEGATIVE) Urine Nitrite Negative (NEGATIVE) Urine Bilirubin Negative (NEGATIVE) Urine Urobilinogen 0.2 (0.2-1.0) E.U./dL Ur Leukocyte Esterase Negative (NEGATIVE) - Re-Assessments/Exams Free Text/Narrative Re-Assessment/Exam: 11/11/20 15:56 See lab Xray with stool in rectum Pt with enema in ER Large amount of stool return Departure - Departure Time of Disposition: 16:00 Disposition: Home, Self-Care 01 Clinical Impression: Constipation Qualifiers: Constipation type: unspecified constipation type Qualified Code(s): K59.00 - Constipation, unspecified - Discharge Information *PRESCRIPTION DRUG MONITORING PROGRAM REVIEWED*: Not Applicable *COPY OF PRESCRIPTION DRUG MONITORING REPORT IN PATIENT CHEN: Not Applicable Instructions: Constipation, Adult, [id number] Referrals: Millicent Howard NP [Primary Care Provider] - Additional Instructions: Laxatives as needed Enemas as needed Follow up in clinic Sepsis Event Note (ED) - Evaluation Sepsis Screening Result: No Definite Risk - Focused Exam Vital Signs: Vital Signs Temp Pulse Resp BP Pulse Ox 11/11/20 15:00 97.9 F 66 18 170/60 H 99 - My Orders Last 24 Hours: My Active Orders 11/11/20 14:58 Abdomen 2V AP Flat Upright [CR] Stat 11/11/20 15:40 UA W/MICROSCOPIC [URIN] Stat 11/11/20 15:43 Enema [RC] ASDIRECTED - Assessment/Plan Last 24 Hours: My Active Orders 11/11/20 14:58 Abdomen 2V AP Flat Upright [CR] Stat 11/11/20 15:40 UA W/MICROSCOPIC [URIN] Stat 11/11/20 15:43 Enema [RC] ASDIRECTED
[2020-11-11 17:48] VITALS: BP 162/60
== END 2020-11-11 16:10 | disposition home or self-care (01) ==
LOC: LL.ED 14:57
DX: K59.00 Constipation, unspecified (principal); I25.10 Atherosclerotic heart disease of native coronary artery without angina pectoris; I10 Essential (primary) hypertension; K21.9 Gastro-esophageal reflux disease without esophagitis; M19.90 Unspecified osteoarthritis, unspecified site; F03.90 Unspecified dementia, unspecified severity, without behavioral disturbance, psychotic disturbance, mood disturbance, and anxiety; E11.9 Type 2 diabetes mellitus without complications; Z88.8 Allergy status to other drugs, medicaments and biological substances; Z79.4 Long term (current) use of insulin; Z79.82 Long term (current) use of aspirin
CPT/HCPCS: 36415; 74019; 80053; 81001; 85025; 99283

== ENCOUNTER 2021-03-31 06:20 | Observation (INO) | payer MEDICARE, OTHER ==
--- NOTE | 2021-03-31 06:41 | EDM.PDOC ---
ED HPI GENERAL MEDICAL PROBLEM - General Chief Complaint: General Stated Complaint: bleeding from rectum Time Seen by Provider: 03/31/21 06:25 Source of Information: Reports: Patient History Limitations: Reports: No Limitations - History of Present Illness INITIAL COMMENTS - FREE TEXT/NARRATIVE: Patient complains of blood pre rectum this morning when she got up to use the bathroom. States yesterday was a normal day. Had a bowel movement but did not strain for a movement and no pain. Nothing per rectum recently and no constipation. She states she is no on a blood thinner. no abdominal pain. States she has been struggling with urinary incontinence for some time but no fecal incontinence. This morning she awoke, got up to go to bathroom and noted wetness in the rectal area. Noticed a golf ball sized spot of blood on the sheets. now has a pad in place with some blood on it. No chest pain, no light headednes or dizziness. Onset: Today - Related Data Allergies Allergy/AdvReac Type Severity Reaction Status Date / Time [id number]-[id number]-[id number] Reductase Allergy Cannot Verified 03/31/21 06:22 Inhibitor Remember Home Meds: Home Meds Insulin Aspart [Novolog Flexpen] 10 units SUBCUT TID 08/03/16 [History] Insulin Detemir [Levemir] 20 unit SUBCUT BEDTIME 08/03/16 [History] Acetaminophen [Tylenol Arthritis] 1 tab PO Q8HR PRN 04/04/20 [History] Cholecalciferol (Vitamin D3) [Vitamin D3] 1 cap PO DAILY 04/04/20 [History] FLUoxetine HCl [Prozac] 1 cap PO DAILY 04/04/20 [History] Fenofibrate Nanocrystallized [Fenofibrate] 1 tab PO BEDTIME 04/04/20 [History] Nitroglycerin 1 tab SL ASDIRECTED 04/04/20 [History] Omeprazole 1 tab PO DAILY 04/04/20 [History] Propranolol [Inderal LA] 1 cap PO DAILY 04/04/20 [History] hydroCHLOROthiazide [Hydrochlorothiazide] 1 tab PO DAILY 04/04/20 [History] lisinopriL [Lisinopril] 2 tab PO DAILY 04/04/20 [History] Cyanocobalamin (Vitamin B-12) [Vitamin B-12] 100 mcg PO DAILY 09/20/20 [History] Lutein/Minerals/Vit A,C & E [Ocuvite] 1 tab PO BID 09/20/20 [History] Multivit-Min/FA/Lycopene/Lut [Abc Plus Tablet] 1 each PO DAILY 09/20/20 [History] Oxybutynin Chloride [Ditropan Xl] 10 mg PO DAILY 09/20/20 [History] Acetaminophen [Arthritis Pain Relief] 650 mg PO Q8HR PRN 03/31/21 [History] Aspirin 81 mg PO DAILY 03/31/21 [History] Past Medical History HEENT History: Reports: Cataract, Impaired Vision Other HEENT History: Wears glassess Cardiovascular History: Reports: CAD, Heart Murmur, Heart Valve Replacement, Hypertension, Other (See Below) Other Cardiovascular History: NEYMAR valve Gastrointestinal History: Reports: Cholelithiasis, GERD Genitourinary History: Reports: Retention, Urinary, Urinary Incontinence DIFFERENTIAL REPAIRER History: Reports: Musculoskeletal History: Reports: Arthritis, Back Pain, Chronic, Osteoporosis Psychiatric History: Reports: Dementia Endocrine/Metabolic History: Reports: Diabetes, Type II, IDDM Hematologic History: Reports: Anemia - Infectious Disease History Infectious Disease History: Reports: Chicken Pox - Past Surgical History HEENT Surgical History: Reports: Cataract Surgery Cardiovascular Surgical History: Reports: Coronary Artery Stent, Valve Replacement GI Surgical History: Reports: Appendectomy, Cholecystectomy Musculoskeletal Surgical History: Reports: Hip Replacement, Knee Replacement Social & Family History - Family History Family Medical History: No Pertinent Family History - Caffeine Use Caffeine Use: Reports: Coffee, Soda - Alcohol Use Alcohol Use History: No Alcohol Use in Last Twelve Months: No - Recreational Drug Use Recreational Drug Use: No Drug Use in Last 12 Months: No ED ROS GENERAL - Review of Systems Review Of Systems: See Below Constitutional: Reports: No Symptoms HEENT: Reports: No Symptoms Respiratory: Reports: No Symptoms Cardiovascular: Reports: No Symptoms GI/Abdominal: Reports: Other (blood per rectum today, no pain). Denies: Constipation, Diarrhea, Nausea, Vomiting : Reports: Incontinence. Denies: Dysuria, Hematuria, Urinary Retention Musculoskeletal: Reports: No Symptoms Skin: Reports: No Symptoms Neurological: Reports: No Symptoms ED EXAM, GENERAL - Physical Exam Exam: See Below Exam Limited By: No Limitations General Appearance: Alert, WD/WN, No Apparent Distress Eye Exam: Bilateral Eye: EOMI, Normal Inspection, Proptosis Ears: Normal External Exam, Normal Canal, Normal TMs Nose: Normal Inspection, Normal Mucosa, No Blood Throat/Mouth: Normal Inspection, Normal Lips, Normal Teeth, Normal Voice Head: Atraumatic Neck: Normal Inspection, Supple, Non-Tender Respiratory/Chest: No Respiratory Distress, Lungs Clear, Normal Breath Sounds, Chest Non-Tender Cardiovascular: Normal Peripheral Pulses, Regular Rate, Rhythm GI/Abdominal: Normal Bowel Sounds, Soft, Non-Tender, No Organomegaly, No Distention Rectal (Female) Exam: Normal Rectal Tone, Other (dark red blood on pad and on rectal. No copious amounts. small stool in the vault, no mass) Back Exam: Normal Inspection, Full Range of Motion Extremities: Normal Inspection, No Pedal Edema Course - Vital Signs Last Recorded V/S: Last Vital Signs Temp 36.9 C 03/31/21 06:35 Pulse 65 03/31/21 06:35 Resp 13 03/31/21 06:35 BP 180/80 H 03/31/21 06:30 Pulse Ox 99 03/31/21 06:35 - Orders/Labs/Meds Orders: Active Orders 24 hr Category Date Time Status Abdomen Pelvis w Cont [CT] Stat Exams 03/31/21 07:54 Taken Sodium Chloride 0.9% [Normal Saline] 1,000 ml Med 03/31/21 10:10 Ordered IV .BOLUS Medication Orders Sodium Chloride (Normal Saline) 1,000 mls @ 999 mls/hr IV .BOLUS ONE Stop: 03/31/21 11:10 Labs: Laboratory Tests 03/31/21 03/31/21 03/31/21 Range/Units 06:57 06:57 06:57 WBC 6.3 (4.0-10.2) K/uL RBC 3.23 L (3.77-5.09) M/uL Hgb 11.0 L (11.7-15.5) g/dL Hct 32.2 L (34.0-46.0) % MCV 99.7 H (84.0-98.0) fL MCH 34.1 H (28.2-33.3) pg MCHC 34.2 (31.7-36.0) g/dL RDW 12.3 (11.2-14.1) % Plt Count 261 (150-350) K/uL Neut % (Auto) 61.1 (45.0-80.0) % Lymph % (Auto) 23.0 (10.0-50.0) % Chambers % (Auto) 7.2 (2.0-14.0) % Eos % (Auto) 8.1 H (0.0-5.0) % Baso % (Auto) 0.6 (0.0-2.0) % Neut # (Auto) 3.83 (1.40-7.00) K/uL Lymph # (Auto) 1.44 (0.50-3.50) K/uL Chambers # (Auto) 0.45 (0.00-1.00) K/uL Eos # (Auto) 0.51 H (0.00-0.50) K/uL Baso # (Auto) 0.04 (0.00-0.20) K/uL PT 10.1 (9.5-12.0) SEC INR 1.0 Sodium 142 (136-145) mmol/L Potassium 4.2 (3.5-5.1) mmol/L Chloride 108 H (98-107) mmol/L Carbon Dioxide 27.3 (21.0-32.0) mmol/L Anion Gap 10.9 (7-15) meq/L BUN 46 H (7-18) mg/dL Creatinine 1.38 H (0.51-1.17) mg/dL Est Cr Clr Drug Dosing 19.85 mL/min Estimated GFR (MDRD) 36 mL/min Glucose 183 H (70-99) mg/dL Calcium 8.9 (8.5-10.1) mg/dL Total Bilirubin 0.2 (0.2-1.0) mg/dL AST 17 (15-37) U/L ALT 23 (12-78) U/L Alkaline Phosphatase 90 (46-116) IU/L Total Protein 7.3 (6.4-8.2) g/dL Albumin 3.9 (3.4-5.0) g/dL Meds: Medications Generic Name Dose Route Start Last Admin Trade Name Freq PRN Reason Stop Dose Admin Sodium Chloride 1,000 mls @ 999 mls/hr 03/31/21 10:10 Normal Saline IV 03/31/21 11:10 .BOLUS ONE Discontinued Medications Generic Name Dose Route Start Last Admin Trade Name Freq PRN Reason Stop Dose Admin Iopamidol 100 ml 03/31/21 08:46 03/31/21 09:10 Iopamidol 612 Mg/Ml 100 Ml Bottle IVPUSH 03/31/21 08:47 100 ml ONETIME STA Administration - Radiology Interpretation Free Text/Narrative:: Ct abdomen pelvis with IV without gross abnormality, no source for GI bleeding. diverticulosis, not infection see report, interpreted by radiologist - Re-Assessments/Exams Free Text/Narrative Re-Assessment/Exam: 03/31/21 06:42 will check labs and rectal exam. hypertensive but anxious. 03/31/21 08:00 hemodynamically stable. melena noted. Will get a ct abdomen pelvis with IV contrast to look for source. Needs outpatient colonoscopy. 03/31/21 10:07 call to [facility] to talk with GI about scope in the next 24-48 hours. Stable vitals. blood pressure improved. patient has not had a bloody bowel movement in the ED, some blood on the pad. 03/31/21 10:28 Discussed with GI eviction specialist, feels she is stable. Monitor for increased bleeding, abnormal vitals, transfer if occurs for emergent colonoscopy, otherwise can call in the am for outpatient. Patient does not want to go to [place], will admit observation, give fluids, recheck hemoglobin x 2. Call gi scheduling tomorrow Departure - Departure Time of Disposition: 10:28 Disposition: Refer to Observation Clinical Impression: GI bleeding - Discharge Information Referrals: Millicent Howard NP [Primary Care Provider] - Forms: ED Department Discharge Additional Instructions: use ER documentation as H & P Sepsis Event Note (ED) - Focused Exam Vital Signs: Vital Signs Temp Pulse Resp BP Pulse Ox 03/31/21 06:35 36.9 C 65 13 99 03/31/21 06:30 180/80 H - My Orders Last 24 Hours: My Active Orders 03/31/21 07:54 Abdomen Pelvis w Cont [CT] Stat 03/31/21 10:10 Sodium Chloride 0.9% [Normal Saline] 1,000 ml IV .BOLUS - Assessment/Plan Last 24 Hours: My Active Orders 03/31/21 07:54 Abdomen Pelvis w Cont [CT] Stat 03/31/21 10:10 Sodium Chloride 0.9% [Normal Saline] 1,000 ml IV .BOLUS
[2021-03-31 07:26] LABS: ANION GAP 10.9 meq/L (7-15)
[2021-03-31] MEDS ORDERED: Iopamidol 612 MG/ML 100 ML Bottle IVPUSH STA (08:46)
[2021-03-31] MEDS ORDERED: Sodium Chloride 0.9% 1,000 ML IV ONE ×2 (10:10→14:01)
[2021-03-31] MEDS ORDERED: Ondansetron 4 MG Tab.DIS PO PRN (12:13)
[2021-03-31] MEDS ORDERED: Acetaminophen 325 MG Tab PO PRN (12:13)
[2021-03-31] MEDS ORDERED: Hydrochlorothiazide 25 MG Tab PO ONE (13:54)
[2021-03-31] MEDS ORDERED: Propranolol 80 MG Cap.ER PO ONE (13:54)
[2021-03-31] MEDS: INSULIN ASPART 100 UNIT/ML SUBCUT SCH (17:28)
[2021-03-31] MEDS ORDERED: INSULIN DETEMIR 100 UNIT/ML SUBCUT SCH (20:00)
--- NOTE | 2021-03-31 23:19 | PCM.SN.2 ---
- Free Text/Narrative Note: Patient repeat hemoglobin at 9.6, has had a total of 2000 cc blood out, will recheck at 0200 and give 100 cc/hr of ns, may need transfer in the morning. Not tachycardic Vital Signs - 24 hr 03/31/21 03/31/21 03/31/21 06:30 06:35 08:30 Temperature [ 36.9 C Temporal] Pulse, 65 85 Peripheral [ Right Pulse Oximetry] Respiratory 13 16 Rate Blood Pressure 178/54 H [Left Upper Arm ] Blood Pressure 180/80 H [Right Upper Arm] O2 Sat by Pulse 99 97 Oximetry 03/31/21 03/31/21 03/31/21 10:00 11:24 12:13 Temperature [ 37.2 C 36.8 C Temporal] Pulse, 60 64 69 Peripheral [ Right Pulse Oximetry] Respiratory 16 16 16 Rate Blood Pressure 178/54 H 176/57 H 193/91 H [Left Upper Arm ] Blood Pressure [Right Upper Arm] O2 Sat by Pulse 97 96 97 Oximetry 03/31/21 03/31/21 15:14 20:00 Temperature [ 36.8 C 36.6 C Temporal] Pulse, 65 63 Peripheral [ Right Pulse Oximetry] Respiratory 16 16 Rate Blood Pressure 190/54 H 173/56 H [Left Upper Arm ] Blood Pressure [Right Upper Arm] O2 Sat by Pulse 98 98 Oximetry Laboratory Last Values WBC 6.3 K/uL (4.0-10.2) 03/31/21 06:57 RBC 3.23 M/uL (3.77-5.09) L 03/31/21 06:57 Hgb 9.6 g/dL (11.7-15.5) L 03/31/21 20:45 Hct 28.2 % (34.0-46.0) L 03/31/21 20:45 MCV 99.7 fL (84.0-98.0) H 03/31/21 06:57 MCH 34.1 pg (28.2-33.3) H 03/31/21 06:57 MCHC 34.2 g/dL (31.7-36.0) 03/31/21 06:57 RDW 12.3 % (11.2-14.1) 03/31/21 06:57 Plt Count 261 K/uL (150-350) 03/31/21 06:57 Neut % (Auto) 61.1 % (45.0-80.0) 03/31/21 06:57 Lymph % (Auto) 23.0 % (10.0-50.0) 03/31/21 06:57 Reynolds % (Auto) 7.2 % (2.0-14.0) 03/31/21 06:57 Eos % (Auto) 8.1 % (0.0-5.0) H 03/31/21 06:57 Baso % (Auto) 0.6 % (0.0-2.0) 03/31/21 06:57 Neut # (Auto) 3.83 K/uL (1.40-7.00) 03/31/21 06:57 Lymph # (Auto) 1.44 K/uL (0.50-3.50) 03/31/21 06:57 Reynolds # (Auto) 0.45 K/uL (0.00-1.00) 03/31/21 06:57 Eos # (Auto) 0.51 K/uL (0.00-0.50) H 03/31/21 06:57 Baso # (Auto) 0.04 K/uL (0.00-0.20) 03/31/21 06:57 PT 10.1 SEC (9.5-12.0) 03/31/21 06:57 INR 1.0 03/31/21 06:57 Sodium 142 mmol/L (136-145) 03/31/21 06:57 Potassium 4.2 mmol/L (3.5-5.1) 03/31/21 06:57 Chloride 108 mmol/L (98-107) H 03/31/21 06:57 Carbon Dioxide 27.3 mmol/L (21.0-32.0) 03/31/21 06:57 Anion Gap 10.9 meq/L (7-15) 03/31/21 06:57 BUN 46 mg/dL (7-18) H 03/31/21 06:57 Creatinine 1.38 mg/dL (0.51-1.17) H 03/31/21 06:57 Est Cr Clr Drug Dosing 19.85 mL/min 03/31/21 06:57 Estimated GFR (MDRD) 36 mL/min 03/31/21 06:57 Glucose 183 mg/dL (70-99) H 03/31/21 06:57 POC Glucose 113 mg/dL (70-99) H 03/31/21 20:10 Calcium 8.9 mg/dL (8.5-10.1) 03/31/21 06:57 Total Bilirubin 0.2 mg/dL (0.2-1.0) 03/31/21 06:57 AST 17 U/L (15-37) 03/31/21 06:57 ALT 23 U/L (12-78) 03/31/21 06:57 Alkaline Phosphatase 90 IU/L (46-116) 03/31/21 06:57 Total Protein 7.3 g/dL (6.4-8.2) 03/31/21 06:57 Albumin 3.9 g/dL (3.4-5.0) 03/31/21 06:57 SARS-CoV-2 RNA (Z[facility]) Negative (NEGATIVE) 03/31/21 11:02
[2021-03-31] MEDS: Sodium Chloride 0.9% 1,000 ML IV SCH (23:51)
[2021-04-01] MEDS ORDERED: cloNIDine 0.1 MG Tab PO ONE (00:03)
--- NOTE | 2021-04-01 04:20 | PCM.PN ---
- General Info Date of Service: 04/01/21 Admission Dx/Problem (Free Text): gi bleeding Subjective Update: patient has had 2500 cc of blood per rectum. Has maintained her vital signs without tahcycardia or hypotension. hemoglobin has dropped 2 units to 9. continues to be stable, but we do not have any blood or FFP available to us. - Review of Systems General: Reports: Weakness, Fatigue HEENT: Reports: No Symptoms Pulmonary: Reports: No Symptoms Cardiovascular: Reports: No Symptoms Gastrointestinal: Reports: Melena Genitourinary: Reports: No Symptoms Musculoskeletal: Reports: No Symptoms Skin: Reports: No Symptoms Neurological: Reports: No Symptoms Psychiatric: Reports: No Symptoms - Patient Data Vitals - Most Recent: Last Vital Signs Temp 36.6 C 03/31/21 23:53 Pulse 62 03/31/21 23:53 Resp 16 03/31/21 23:53 BP 198/58 H 04/01/21 00:26 Pulse Ox 99 03/31/21 23:53 Weight - Most Recent: 68.039 kg I&O - Last 24 Hours: Intake & Output 03/31/21 03/31/21 04/01/21 14:59 22:59 06:59 Intake Total 1980 300 Output Total 800 2600 Balance 1180 -2300 Lab Results Last 24 Hours: Laboratory Results - last 24 hr 03/31/21 03/31/21 03/31/21 Range/Units 06:57 06:57 06:57 WBC 6.3 (4.0-10.2) K/uL RBC 3.23 L (3.77-5.09) M/uL Hgb 11.0 L (11.7-15.5) g/dL Hct 32.2 L (34.0-46.0) % MCV 99.7 H (84.0-98.0) fL MCH 34.1 H (28.2-33.3) pg MCHC 34.2 (31.7-36.0) g/dL RDW 12.3 (11.2-14.1) % Plt Count 261 (150-350) K/uL MPV (7.00-11.50) fL Neut % (Auto) 61.1 (45.0-80.0) % Lymph % (Auto) 23.0 (10.0-50.0) % [place] % (Auto) 7.2 (2.0-14.0) % Eos % (Auto) 8.1 H (0.0-5.0) % Baso % (Auto) 0.6 (0.0-2.0) % Neut # (Auto) 3.83 (1.40-7.00) K/uL Lymph # (Auto) 1.44 (0.50-3.50) K/uL [place] # (Auto) 0.45 (0.00-1.00) K/uL Eos # (Auto) 0.51 H (0.00-0.50) K/uL Baso # (Auto) 0.04 (0.00-0.20) K/uL PT 10.1 (9.5-12.0) SEC INR 1.0 Sodium 142 (136-145) mmol/L Potassium 4.2 (3.5-5.1) mmol/L Chloride 108 H (98-107) mmol/L Carbon Dioxide 27.3 (21.0-32.0) mmol/L Anion Gap 10.9 (7-15) meq/L BUN 46 H (7-18) mg/dL Creatinine 1.38 H (0.51-1.17) mg/dL Est Cr Clr Drug Dosing 19.85 mL/min Estimated GFR (MDRD) 36 mL/min Glucose 183 H (70-99) mg/dL POC Glucose (70-99) mg/dL Calcium 8.9 (8.5-10.1) mg/dL Total Bilirubin 0.2 (0.2-1.0) mg/dL AST 17 (15-37) U/L ALT 23 (12-78) U/L Alkaline Phosphatase 90 (46-116) IU/L Total Protein 7.3 (6.4-8.2) g/dL Albumin 3.9 (3.4-5.0) g/dL SARS-CoV-2 RNA ([facility]) (NEGATIVE) 03/31/21 03/31/21 03/31/21 Range/Units 11:02 13:24 13:30 WBC (4.0-10.2) K/uL RBC (3.77-5.09) M/uL Hgb 9.9 L (11.7-15.5) g/dL Hct 28.8 L (34.0-46.0) % MCV (84.0-98.0) fL MCH (28.2-33.3) pg MCHC (31.7-36.0) g/dL RDW (11.2-14.1) % Plt Count (150-350) K/uL MPV (7.00-11.50) fL Neut % (Auto) (45.0-80.0) % Lymph % (Auto) (10.0-50.0) % [place] % (Auto) (2.0-14.0) % Eos % (Auto) (0.0-5.0) % Baso % (Auto) (0.0-2.0) % Neut # (Auto) (1.40-7.00) K/uL Lymph # (Auto) (0.50-3.50) K/uL [place] # (Auto) (0.00-1.00) K/uL Eos # (Auto) (0.00-0.50) K/uL Baso # (Auto) (0.00-0.20) K/uL PT (9.5-12.0) SEC INR Sodium (136-145) mmol/L Potassium (3.5-5.1) mmol/L Chloride (98-107) mmol/L Carbon Dioxide (21.0-32.0) mmol/L Anion Gap (7-15) meq/L BUN (7-18) mg/dL Creatinine (0.51-1.17) mg/dL Est Cr Clr Drug Dosing mL/min Estimated GFR (MDRD) mL/min Glucose (70-99) mg/dL POC Glucose 214 H (70-99) mg/dL Calcium (8.5-10.1) mg/dL Total Bilirubin (0.2-1.0) mg/dL AST (15-37) U/L ALT (12-78) U/L Alkaline Phosphatase (46-116) IU/L Total Protein (6.4-8.2) g/dL Albumin (3.4-5.0) g/dL SARS-CoV-2 RNA ([facility]) Negative (NEGATIVE) 03/31/21 03/31/21 03/31/21 Range/Units 17:27 20:10 20:45 WBC (4.0-10.2) K/uL RBC (3.77-5.09) M/uL Hgb 9.6 L (11.7-15.5) g/dL Hct 28.2 L (34.0-46.0) % MCV (84.0-98.0) fL MCH (28.2-33.3) pg MCHC (31.7-36.0) g/dL RDW (11.2-14.1) % Plt Count (150-350) K/uL MPV (7.00-11.50) fL Neut % (Auto) (45.0-80.0) % Lymph % (Auto) (10.0-50.0) % [place] % (Auto) (2.0-14.0) % Eos % (Auto) (0.0-5.0) % Baso % (Auto) (0.0-2.0) % Neut # (Auto) (1.40-7.00) K/uL Lymph # (Auto) (0.50-3.50) K/uL [place] # (Auto) (0.00-1.00) K/uL Eos # (Auto) (0.00-0.50) K/uL Baso # (Auto) (0.00-0.20) K/uL PT (9.5-12.0) SEC INR Sodium (136-145) mmol/L Potassium (3.5-5.1) mmol/L Chloride (98-107) mmol/L Carbon Dioxide (21.0-32.0) mmol/L Anion Gap (7-15) meq/L BUN (7-18) mg/dL Creatinine (0.51-1.17) mg/dL Est Cr Clr Drug Dosing mL/min Estimated GFR (MDRD) mL/min Glucose (70-99) mg/dL POC Glucose 139 H 113 H (70-99) mg/dL Calcium (8.5-10.1) mg/dL Total Bilirubin (0.2-1.0) mg/dL AST (15-37) U/L ALT (12-78) U/L Alkaline Phosphatase (46-116) IU/L Total Protein (6.4-8.2) g/dL Albumin (3.4-5.0) g/dL SARS-CoV-2 RNA ([facility]) (NEGATIVE) 04/01/21 Range/Units 02:21 WBC 5.9 (4.0-10.2) K/uL RBC 2.64 L (3.77-5.09) M/uL Hgb 9.0 L (11.7-15.5) g/dL Hct 26.6 L (34.0-46.0) % MCV 100.8 H (84.0-98.0) fL MCH 34.1 H (28.2-33.3) pg MCHC 33.8 (31.7-36.0) g/dL RDW 12.2 (11.2-14.1) % Plt Count 227 (150-350) K/uL MPV 9.20 (7.00-11.50) fL Neut % (Auto) (45.0-80.0) % Lymph % (Auto) (10.0-50.0) % [place] % (Auto) (2.0-14.0) % Eos % (Auto) (0.0-5.0) % Baso % (Auto) (0.0-2.0) % Neut # (Auto) (1.40-7.00) K/uL Lymph # (Auto) (0.50-3.50) K/uL [place] # (Auto) (0.00-1.00) K/uL Eos # (Auto) (0.00-0.50) K/uL Baso # (Auto) (0.00-0.20) K/uL PT (9.5-12.0) SEC INR Sodium (136-145) mmol/L Potassium (3.5-5.1) mmol/L Chloride (98-107) mmol/L Carbon Dioxide (21.0-32.0) mmol/L Anion Gap (7-15) meq/L BUN (7-18) mg/dL Creatinine (0.51-1.17) mg/dL Est Cr Clr Drug Dosing mL/min Estimated GFR (MDRD) mL/min Glucose (70-99) mg/dL POC Glucose (70-99) mg/dL Calcium (8.5-10.1) mg/dL Total Bilirubin (0.2-1.0) mg/dL AST (15-37) U/L ALT (12-78) U/L Alkaline Phosphatase (46-116) IU/L Total Protein (6.4-8.2) g/dL Albumin (3.4-5.0) g/dL SARS-CoV-2 RNA ([facility]) (NEGATIVE) Med Orders - Current: Current Medications Acetaminophen (Acetaminophen 325 Mg Tab) 650 mg PO Q4H PRN PRN Reason: Pain (Mild 1-3)/fever Last Admin: 03/31/21 20:07 Dose: 650 mg Documented by: Fluoxetine HCl (Fluoxetine 20 Mg Cap) 20 mg PO DAILY [facility] Hydrochlorothiazide (Hydrochlorothiazide 25 Mg Tab) 25 mg PO DAILY [facility] Sodium Chloride (Normal Saline) 1,000 mls @ 100 mls/hr IV ASDIRECTED [facility] Last Admin: 03/31/21 23:51 Dose: 100 mls/hr Documented by: Lisinopril (Lisinopril 20 Mg Tab) 40 mg PO DAILY [facility] Insulin Aspart [ Novolog Flexpen] 100 Unit/Ml Own Med 10 units SUBCUT TID [facility] Last Admin: 03/31/21 17:28 Dose: 10 units Documented by: Insulin Detemir 100 Unit/Ml Pen Own Med 20 unit SUBCUT BEDTIME [facility] Last Admin: 03/31/21 20:11 Dose: 20 unit Documented by: Omeprazole (Omeprazole 20 Mg Cap.Cr) 20 mg PO DAILY [facility] Ondansetron HCl (Ondansetron 4 Mg Tab.Dis) 4 mg PO Q4H PRN PRN Reason: Nausea/Vomiting Oxybutynin Chloride (Oxybutynin 5 Mg Tab.Er) 10 mg PO DAILY [facility] Propranolol HCl (Propranolol 80 Mg Cap.Er) 80 mg PO DAILY [facility] Discontinued Medications Clonidine HCl (Clonidine 0.1 Mg Tab) 0.1 mg PO ONETIME ONE Stop: 04/01/21 00:04 Last Admin: 04/01/21 00:26 Dose: 0.1 mg Documented by: Hydrochlorothiazide (Hydrochlorothiazide 25 Mg Tab) 25 mg PO ONETIME ONE Stop: 03/31/21 13:55 Last Admin: 03/31/21 14:21 Dose: 25 mg Documented by: Sodium Chloride (Normal Saline) 1,000 mls @ 999 mls/hr IV .BOLUS ONE Stop: 03/31/21 11:10 Last Admin: 03/31/21 13:13 Dose: 999 mls/hr Documented by: Sodium Chloride (Normal Saline) 1,000 mls @ 999 mls/hr IV .BOLUS ONE Stop: 03/31/21 15:01 Last Admin: 03/31/21 15:12 Dose: 999 mls/hr Documented by: Iopamidol (Iopamidol 612 Mg/Ml 100 Ml Bottle) 100 ml IVPUSH ONETIME STA Stop: 03/31/21 08:47 Last Admin: 03/31/21 09:10 Dose: 100 ml Documented by: Propranolol HCl (Propranolol 80 Mg Cap.Er) 80 mg PO ONETIME ONE Stop: 03/31/21 13:55 Last Admin: 03/31/21 14:21 Dose: 80 mg Documented by: - Exam General: Alert HEENT: Pupils Equal Lungs: Clear to Auscultation, Normal Respiratory Effort Cardiovascular: Regular Rate, Regular Rhythm GI/Abdominal Exam: Normal Bowel Sounds, Soft, Non-Tender Neurological: No New Focal Deficit - Patient Data Lab Results Last 24 hrs: Laboratory Results - last 24 hr 03/31/21 03/31/21 03/31/21 Range/Units 06:57 06:57 06:57 WBC 6.3 (4.0-10.2) K/uL RBC 3.23 L (3.77-5.09) M/uL Hgb 11.0 L (11.7-15.5) g/dL Hct 32.2 L (34.0-46.0) % MCV 99.7 H (84.0-98.0) fL MCH 34.1 H (28.2-33.3) pg MCHC 34.2 (31.7-36.0) g/dL RDW 12.3 (11.2-14.1) % Plt Count 261 (150-350) K/uL MPV (7.00-11.50) fL Neut % (Auto) 61.1 (45.0-80.0) % Lymph % (Auto) 23.0 (10.0-50.0) % [place] % (Auto) 7.2 (2.0-14.0) % Eos % (Auto) 8.1 H (0.0-5.0) % Baso % (Auto) 0.6 (0.0-2.0) % Neut # (Auto) 3.83 (1.40-7.00) K/uL Lymph # (Auto) 1.44 (0.50-3.50) K/uL [place] # (Auto) 0.45 (0.00-1.00) K/uL Eos # (Auto) 0.51 H (0.00-0.50) K/uL Baso # (Auto) 0.04 (0.00-0.20) K/uL PT 10.1 (9.5-12.0) SEC INR 1.0 Sodium 142 (136-145) mmol/L Potassium 4.2 (3.5-5.1) mmol/L Chloride 108 H (98-107) mmol/L Carbon Dioxide 27.3 (21.0-32.0) mmol/L Anion Gap 10.9 (7-15) meq/L BUN 46 H (7-18) mg/dL Creatinine 1.38 H (0.51-1.17) mg/dL Est Cr Clr Drug Dosing 19.85 mL/min Estimated GFR (MDRD) 36 mL/min Glucose 183 H (70-99) mg/dL POC Glucose (70-99) mg/dL Calcium 8.9 (8.5-10.1) mg/dL Total Bilirubin 0.2 (0.2-1.0) mg/dL AST 17 (15-37) U/L ALT 23 (12-78) U/L Alkaline Phosphatase 90 (46-116) IU/L Total Protein 7.3 (6.4-8.2) g/dL Albumin 3.9 (3.4-5.0) g/dL SARS-CoV-2 RNA ([facility]) (NEGATIVE) 03/31/21 03/31/21 03/31/21 Range/Units 11:02 13:24 13:30 WBC (4.0-10.2) K/uL RBC (3.77-5.09) M/uL Hgb 9.9 L (11.7-15.5) g/dL Hct 28.8 L (34.0-46.0) % MCV (84.0-98.0) fL MCH (28.2-33.3) pg MCHC (31.7-36.0) g/dL RDW (11.2-14.1) % Plt Count (150-350) K/uL MPV (7.00-11.50) fL Neut % (Auto) (45.0-80.0) % Lymph % (Auto) (10.0-50.0) % [place] % (Auto) (2.0-14.0) % Eos % (Auto) (0.0-5.0) % Baso % (Auto) (0.0-2.0) % Neut # (Auto) (1.40-7.00) K/uL Lymph # (Auto) (0.50-3.50) K/uL [place] # (Auto) (0.00-1.00) K/uL Eos # (Auto) (0.00-0.50) K/uL Baso # (Auto) (0.00-0.20) K/uL PT (9.5-12.0) SEC INR Sodium (136-145) mmol/L Potassium (3.5-5.1) mmol/L Chloride (98-107) mmol/L Carbon Dioxide (21.0-32.0) mmol/L Anion Gap (7-15) meq/L BUN (7-18) mg/dL Creatinine (0.51-1.17) mg/dL Est Cr Clr Drug Dosing mL/min Estimated GFR (MDRD) mL/min Glucose (70-99) mg/dL POC Glucose 214 H (70-99) mg/dL Calcium (8.5-10.1) mg/dL Total Bilirubin (0.2-1.0) mg/dL AST (15-37) U/L ALT (12-78) U/L Alkaline Phosphatase (46-116) IU/L Total Protein (6.4-8.2) g/dL Albumin (3.4-5.0) g/dL SARS-CoV-2 RNA ([facility]) Negative (NEGATIVE) 03/31/21 03/31/21 03/31/21 Range/Units 17:27 20:10 20:45 WBC (4.0-10.2) K/uL RBC (3.77-5.09) M/uL Hgb 9.6 L (11.7-15.5) g/dL Hct 28.2 L (34.0-46.0) % MCV (84.0-98.0) fL MCH (28.2-33.3) pg MCHC (31.7-36.0) g/dL RDW (11.2-14.1) % Plt Count (150-350) K/uL MPV (7.00-11.50) fL Neut % (Auto) (45.0-80.0) % Lymph % (Auto) (10.0-50.0) % [place] % (Auto) (2.0-14.0) % Eos % (Auto) (0.0-5.0) % Baso % (Auto) (0.0-2.0) % Neut # (Auto) (1.40-7.00) K/uL Lymph # (Auto) (0.50-3.50) K/uL [place] # (Auto) (0.00-1.00) K/uL Eos # (Auto) (0.00-0.50) K/uL Baso # (Auto) (0.00-0.20) K/uL PT (9.5-12.0) SEC INR Sodium (136-145) mmol/L Potassium (3.5-5.1) mmol/L Chloride (98-107) mmol/L Carbon Dioxide (21.0-32.0) mmol/L Anion Gap (7-15) meq/L BUN (7-18) mg/dL Creatinine (0.51-1.17) mg/dL Est Cr Clr Drug Dosing mL/min Estimated GFR (MDRD) mL/min Glucose (70-99) mg/dL POC Glucose 139 H 113 H (70-99) mg/dL Calcium (8.5-10.1) mg/dL Total Bilirubin (0.2-1.0) mg/dL AST (15-37) U/L ALT (12-78) U/L Alkaline Phosphatase (46-116) IU/L Total Protein (6.4-8.2) g/dL Albumin (3.4-5.0) g/dL SARS-CoV-2 RNA ([facility]) (NEGATIVE) 04/01/21 Range/Units 02:21 WBC 5.9 (4.0-10.2) K/uL RBC 2.64 L (3.77-5.09) M/uL Hgb 9.0 L (11.7-15.5) g/dL Hct 26.6 L (34.0-46.0) % MCV 100.8 H (84.0-98.0) fL MCH 34.1 H (28.2-33.3) pg MCHC 33.8 (31.7-36.0) g/dL RDW 12.2 (11.2-14.1) % Plt Count 227 (150-350) K/uL MPV 9.20 (7.00-11.50) fL Neut % (Auto) (45.0-80.0) % Lymph % (Auto) (10.0-50.0) % [place] % (Auto) (2.0-14.0) % Eos % (Auto) (0.0-5.0) % Baso % (Auto) (0.0-2.0) % Neut # (Auto) (1.40-7.00) K/uL Lymph # (Auto) (0.50-3.50) K/uL [place] # (Auto) (0.00-1.00) K/uL Eos # (Auto) (0.00-0.50) K/uL Baso # (Auto) (0.00-0.20) K/uL PT (9.5-12.0) SEC INR Sodium (136-145) mmol/L Potassium (3.5-5.1) mmol/L Chloride (98-107) mmol/L Carbon Dioxide (21.0-32.0) mmol/L Anion Gap (7-15) meq/L BUN (7-18) mg/dL Creatinine (0.51-1.17) mg/dL Est Cr Clr Drug Dosing mL/min Estimated GFR (MDRD) mL/min Glucose (70-99) mg/dL POC Glucose (70-99) mg/dL Calcium (8.5-10.1) mg/dL Total Bilirubin (0.2-1.0) mg/dL AST (15-37) U/L ALT (12-78) U/L Alkaline Phosphatase (46-116) IU/L Total Protein (6.4-8.2) g/dL Albumin (3.4-5.0) g/dL SARS-CoV-2 RNA ([facility]) (NEGATIVE) Result Diagrams: 04/01/21 07:45 04/01/21 07:45 Sepsis Event Note - Evaluation Sepsis Screening Result: No Definite Risk - Focused Exam Vital Signs: Vital Signs Temp Pulse Resp BP BP Pulse Ox 04/01/21 00:26 198/58 H 03/31/21 23:53 36.6 C 62 16 198/58 H 99 03/31/21 20:00 36.6 C 63 16 173/56 H 98 - Problem List & Annotations (1) GI bleeding SNOMED Code(s): 61630353 Code(s): K92.2 - GASTROINTESTINAL HEMORRHAGE, UNSPECIFIED Status: Acute Current Visit: Yes Qualifiers: GI bleed type/associated pathology: melena Qualified Code(s): K92.1 - Melena Annotation/Comment:: Patient continues to have GI bleeding, needs transfer for colonoscopy and definitive care, hemoglobin stable since last check. awaiting bed - Problem List Review Problem List Initiated/Reviewed/Updated: Yes - My Orders Last 24 Hours: My Active Orders 03/31/21 07:54 Abdomen Pelvis w Cont [CT] Stat 03/31/21 10:30 Admission Status [Patient Status] [ADT] Routine Cardiac Monitoring [RC] Q2HR 03/31/21 12:13 Ambulate [RC] ASDIRECTED Oxygen Therapy [RC] PRN Up ad Violet [RC] ASDIRECTED VTE/DVT Education [RC] PER UNIT ROUTINE Vital Signs [RC] Q4HR Acetaminophen [TylenoL] 650 mg PO Q4H PRN Ondansetron [Zofran ODT] 4 mg PO Q4H PRN Anticoagulation Contraindications VTE [AST] Per Unit Routine Resuscitation Status Routine 03/31/21 12:17 Intake and Output [RC] 0618 03/31/21 12:22 Blood Glucose Check, Bedside [RC] WITHMEALSANDBED Maintain Blood Glucose Level [OM.PC] Routine 03/31/21 Dinner Clear Liquid Diet [DIET] 03/31/21 18:00 Insulin Aspart [Novolog Flexpen] 10 units SUBCUT TID 03/31/21 20:00 Insulin Detemir 20 unit SUBCUT BEDTIME 03/31/21 23:15 Sodium Chloride 0.9% [Normal Saline] 1,000 ml IV ASDIRECTED 04/01/21 05:11 BASIC METABOLIC PANEL,BMP [CHEM] AM CBC WITH AUTO DIFF [HEME] AM 04/01/21 08:00 FLUoxetine [PROzac] 20 mg PO DAILY Omeprazole 20 mg PO DAILY Oxybutynin [Oxybutynin ER] 10 mg PO DAILY Propranolol [Inderal LA] 80 mg PO DAILY hydroCHLOROthiazide 25 mg PO DAILY lisinopriL [Prinivil] 40 mg PO DAILY - Assessment Assessment:: gi bleeding continuing - Plan Plan:: Transfer to [facility] when a Bed becomes available. Dr Hammond accepts for admission and they will call when it is ready. accepted at 3:30, continue IV fluds, recheck hemoglobin and hematocrit.
[2021-04-01] MEDS ORDERED: Hydrochlorothiazide 25 MG Tab PO SCH (08:00)
[2021-04-01] MEDS ORDERED: Propranolol 80 MG Cap.ER PO SCH (08:00)
[2021-04-01] MEDS ORDERED: Lisinopril 20 MG Tab PO SCH (08:00)
[2021-04-01] MEDS ORDERED: Oxybutynin 5 MG Tab.ER PO SCH (08:00)
[2021-04-01] MEDS ORDERED: Omeprazole 20 MG Cap.CR PO SCH (08:00)
[2021-04-01] MEDS ORDERED: FLUoxetine 20 MG Cap PO SCH (08:00)
[2021-04-01 08:25] LABS: ANION GAP 10.6 meq/L (7-15)
[2021-04-01] MEDS: INSULIN ASPART 100 UNIT/ML SUBCUT SCH ×2 (08:54→12:37)
[2021-04-01] MEDS: Sodium Chloride 0.9% 1,000 ML IV SCH (10:06)
[2021-04-01 13:10] VITALS: PULSE 61
--- NOTE | 2021-04-01 15:35 | PCM.SN.2 ---
- Free Text/Narrative Note: Patient is doing better. Small amount of bleeding today. Feeling better. She is hungry. Still awaiting transfer to [place]. will check into availability of colonoscopy here next week if the bleed subsides,. hemoglobin stable and improved Laboratory Last Values WBC 6.0 K/uL (4.0-10.2) 04/01/21 07:45 RBC 2.75 M/uL (3.77-5.09) L 04/01/21 07:45 Hgb 9.3 g/dL (11.7-15.5) L 04/01/21 07:45 Hct 27.7 % (34.0-46.0) L 04/01/21 07:45 MCV 100.7 fL (84.0-98.0) H 04/01/21 07:45 MCH 33.8 pg (28.2-33.3) H 04/01/21 07:45 MCHC 33.6 g/dL (31.7-36.0) 04/01/21 07:45 RDW 12.2 % (11.2-14.1) 04/01/21 07:45 Plt Count 238 K/uL (150-350) 04/01/21 07:45 MPV 9.20 fL (7.00-11.50) 04/01/21 02:21 Neut % (Auto) 62.7 % (45.0-80.0) 04/01/21 07:45 Lymph % (Auto) 26.7 % (10.0-50.0) 04/01/21 07:45 [place] % (Auto) 5.3 % (2.0-14.0) 04/01/21 07:45 Eos % (Auto) 4.8 % (0.0-5.0) 04/01/21 07:45 Baso % (Auto) 0.5 % (0.0-2.0) 04/01/21 07:45 Neut # (Auto) 3.79 K/uL (1.40-7.00) 04/01/21 07:45 Lymph # (Auto) 1.61 K/uL (0.50-3.50) 04/01/21 07:45 [place] # (Auto) 0.32 K/uL (0.00-1.00) 04/01/21 07:45 Eos # (Auto) 0.29 K/uL (0.00-0.50) 04/01/21 07:45 Baso # (Auto) 0.03 K/uL (0.00-0.20) 04/01/21 07:45 PT 10.1 SEC (9.5-12.0) 03/31/21 06:57 INR 1.0 03/31/21 06:57 Sodium 145 mmol/L (136-145) 04/01/21 07:45 Potassium 4.0 mmol/L (3.5-5.1) 04/01/21 07:45 Chloride 111 mmol/L (98-107) H 04/01/21 07:45 Carbon Dioxide 27.4 mmol/L (21.0-32.0) 04/01/21 07:45 Anion Gap 10.6 meq/L (7-15) 04/01/21 07:45 BUN 27 mg/dL (7-18) H 04/01/21 07:45 Creatinine 0.99 mg/dL (0.51-1.17) 04/01/21 07:45 Est Cr Clr Drug Dosing 27.67 mL/min 04/01/21 07:45 Estimated GFR (MDRD) 53 mL/min 04/01/21 07:45 Glucose 96 mg/dL (70-99) 04/01/21 07:45 POC Glucose 91 mg/dL (70-99) 04/01/21 12:25 Calcium 8.6 mg/dL (8.5-10.1) 04/01/21 07:45 Total Bilirubin 0.2 mg/dL (0.2-1.0) 03/31/21 06:57 AST 17 U/L (15-37) 03/31/21 06:57 ALT 23 U/L (12-78) 03/31/21 06:57 Alkaline Phosphatase 90 IU/L (46-116) 03/31/21 06:57 Total Protein 7.3 g/dL (6.4-8.2) 03/31/21 06:57 Albumin 3.9 g/dL (3.4-5.0) 03/31/21 06:57 SARS-CoV-2 RNA ([facility]) Negative (NEGATIVE) 03/31/21 11:02
[2021-04-01 16:20] VITALS: BP 156/67
== END 2021-04-01 16:45 ==
LOC: LL.ED 06:20 → LL.MS 11:16
PROVIDERS: ADMIT Physician Assistant; ATTEND Physician Assistant
DX: K92.1 Melena (principal); E11.9 Type 2 diabetes mellitus without complications; I25.10 Atherosclerotic heart disease of native coronary artery without angina pectoris; I10 Essential (primary) hypertension; M81.0 Age-related osteoporosis without current pathological fracture; F03.90 Unspecified dementia, unspecified severity, without behavioral disturbance, psychotic disturbance, mood disturbance, and anxiety; Z20.822 Contact with and (suspected) exposure to COVID-19; Z79.899 Other long term (current) drug therapy
CPT/HCPCS: 36415; 74177; 80048; 80053; 82947; 85014; 85018; 85025; 85027; 85610; 99285-25; A9270-GY; G0378; J7030; Q9967; U0002

== ENCOUNTER 2021-04-29 05:08 | Emergency (ER) | payer MEDICARE, OTHER ==
[2021-04-29] MEDS ORDERED: Acetaminophen 325 MG Tab PO ONE (05:37)
--- NOTE | 2021-04-29 05:46 | EDM.PDOC ---
ED HPI GENERAL MEDICAL PROBLEM - General Chief Complaint: Lower Extremity Injury/Pain Stated Complaint: fall, left hip pain Time Seen by Provider: 04/29/21 05:23 Source of Information: Reports: Patient - History of Present Illness INITIAL COMMENTS - FREE TEXT/NARRATIVE: Nara is an 89 y/o female who is brought to the ER by her son for a left hip pain. She apparently fell on Wednesday according to her son and had had the left hip pain ever since. She is also complaining of pain in the left lower rib region. Also son concerned that she has not had a BM in a "long time". He reports given her Senna, Colace, and Miralax in the last few days with the Miralax being given last night night. Treatments ROLLER OPERATOR: Reports: Acetaminophen, NSAIDS Left Hip Pain Score (Numeric/FACES): 9 - Related Data Allergies Allergy/AdvReac Type Severity Reaction Status Date / Time Ikyexys-Yak-Xvy Reductase Allergy Cannot Verified 04/29/21 05:10 Inhibitor Remember Home Meds: Home Meds Insulin Aspart [Novolog Flexpen] 10 units SUBCUT TID 08/03/16 [History] Insulin Detemir [Levemir] 20 unit SUBCUT BEDTIME 08/03/16 [History] Acetaminophen [Tylenol Arthritis] 1 tab PO Q8HR PRN 04/04/20 [History] Cholecalciferol (Vitamin D3) [Vitamin D3] 1 cap PO DAILY 04/04/20 [History] FLUoxetine HCl [Prozac] 1 cap PO DAILY 04/04/20 [History] Fenofibrate Nanocrystallized [Fenofibrate] 1 tab PO BEDTIME 04/04/20 [History] Nitroglycerin 1 tab SL ASDIRECTED 04/04/20 [History] Omeprazole 1 tab PO DAILY 04/04/20 [History] Propranolol [Inderal LA] 1 cap PO DAILY 04/04/20 [History] hydroCHLOROthiazide [Hydrochlorothiazide] 1 tab PO DAILY 04/04/20 [History] lisinopriL [Lisinopril] 2 tab PO DAILY 04/04/20 [History] Cyanocobalamin (Vitamin B-12) [Vitamin B-12] 100 mcg PO DAILY 09/20/20 [History] Lutein/Minerals/Vit A,C & E [Ocuvite] 1 tab PO BID 09/20/20 [History] Multivit-Min/FA/Lycopene/Lut [Abc Plus Tablet] 1 each PO DAILY 09/20/20 [History] Oxybutynin Chloride [Ditropan Xl] 10 mg PO DAILY 09/20/20 [History] Aspirin 81 mg PO DAILY 03/31/21 [History] Acetaminophen [Arthritis Pain Relief] 650 mg PO Q8HR #0 04/29/21 [Rx] traMADol [Ultram] 50 mg PO Q8H PRN #15 tab 04/29/21 [Rx] Past Medical History HEENT History: Reports: Cataract, Impaired Vision Other HEENT History: Wears glassess Cardiovascular History: Reports: CAD, Heart Murmur, Heart Valve Replacement, Hypertension, Other (See Below) Other Cardiovascular History: NEYMAR valve Gastrointestinal History: Reports: Cholelithiasis, GERD Genitourinary History: Reports: Retention, Urinary, Urinary Incontinence 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: Musculoskeletal History: Reports: Arthritis, Back Pain, Chronic, Osteoporosis Psychiatric History: Reports: Dementia Endocrine/Metabolic History: Reports: Diabetes, Type II, IDDM Hematologic History: Reports: Anemia - Infectious Disease History Infectious Disease History: Reports: Chicken Pox - Past Surgical History HEENT Surgical History: Reports: Cataract Surgery Cardiovascular Surgical History: Reports: Coronary Artery Stent, Valve Replacement GI Surgical History: Reports: Appendectomy, Cholecystectomy Musculoskeletal Surgical History: Reports: Hip Replacement, Knee Replacement Social & Family History - Family History Family Medical History: No Pertinent Family History - Tobacco Use Tobacco Use Status *Q: Never Tobacco User - Caffeine Use Caffeine Use: Reports: Coffee - Recreational Drug Use Recreational Drug Use: No Review of Systems - Review of Systems Review Of Systems: See Below Constitutional: Reports: No Symptoms Eyes: Reports: No Symptoms Ears: Reports: No Symptoms Nose: Reports: No Symptoms Mouth/Throat: Reports: No Symptoms Respiratory: Reports: No Symptoms Cardiovascular: Reports: No Symptoms GI/Abdominal: Reports: Constipation Genitourinary: Reports: No Symptoms Musculoskeletal: Reports: Joint Pain (left hip), Other (left lower rib pain) Neurological: Reports: No Symptoms Psychiatric: Reports: No Symptoms ED EXAM, GENERAL - Physical Exam Exam: See Below General Appearance: Alert, WD/WN (Elderly female, lying on ER. Seems to answer questions, but then a bit pleasantly confused.) Ears: Hearing Grossly Normal Nose: Normal Inspection Throat/Mouth: Normal Inspection, Normal Lips, Normal Oropharynx, Normal Voice Head: Atraumatic, Normocephalic Course - Vital Signs Text/Narrative:: 0523 The patient was seen by the DISTRIBUTION FIELD ENGINEER. Xrays were done. She was given Tylenol 650mg po x 1 for pain. 0645 Xray reports received. Note multipl erib fx on the left. Results discussed with patient and her son. DISTRIBUTION FIELD ENGINEER verbalized concern for frequent falls and numerous ER visits and concern for patient safety at home. Will discharge to home with Tramadol and APAP for pain. Written instructions were given and the patient left the ER in stable condition with her son. Last Recorded V/S: Last Vital Signs Temp 36.3 C 04/29/21 05:15 Pulse 62 04/29/21 06:14 Resp 20 04/29/21 06:14 BP 184/59 H 04/29/21 06:14 Pulse Ox 94 L 04/29/21 06:14 - Orders/Labs/Meds Orders: Active Orders 24 hr Category Date Time Status Abdomen 1V Flat [CR] Stat Exams 04/29/21 05:37 Taken Chest 1V Frontal [CR] Stat Exams 04/29/21 05:37 Taken Hip Min 2V or 3V w Pelvis Lt [CR] Stat Exams 04/29/21 05:17 Taken Ribs 2V wo Chest Lt [CR] Stat Exams 04/29/21 05:37 Taken Meds: Medications Discontinued Medications Generic Name Dose Route Start Last Admin Trade Name Freq PRN Reason Stop Dose Admin Acetaminophen 650 mg 04/29/21 05:37 04/29/21 05:49 Acetaminophen 325 Mg Tab PO 04/29/21 05:38 650 mg NOW ONE Administration Ondansetron HCl 4 mg 04/29/21 06:25 04/29/21 06:29 Ondansetron 4 Mg Tab.Dis PO 04/29/21 06:26 4 mg ONETIME ONE Administration - Radiology Interpretation Free Text/Narrative:: XR Chest 1V=no acute findings XR Chest/Left Ribs-note rb fx #7, #8, #9, minimal angulation Pelvis/Left Hip-stable prothesis, no acute findings XR Abd-negative for obstruction or constipation (See final reports) Departure - Departure Time of Disposition: 06:58 Disposition: Home, Self-Care 01 Condition: Good Clinical Impression: Ribs, multiple fractures Qualifiers: Encounter type: initial encounter Fracture type: closed Laterality: left Qualified Code(s): S22.42XA - Multiple fractures of ribs, left side, initial encounter for closed fracture Fall Qualifiers: Encounter type: initial encounter Qualified Code(s): W19.XXXA - Unspecified fall, initial encounter - Discharge Information *PRESCRIPTION DRUG MONITORING PROGRAM REVIEWED*: No *COPY OF PRESCRIPTION DRUG MONITORING REPORT IN PATIENT CHEN: No Prescriptions: traMADol [Ultram] 50 mg PO Q8H PRN #15 tab PRN Reason: Pain Instructions: Rib Fracture Referrals: Millicent Howard, HOUSE REGISTRY RN [Primary Care Provider] - Forms: ED Department Discharge Additional Instructions: -Tramadol 50mg oral every 8 hours as needed for pain #15(Rx) -Scheduled the Tylenol Arthritis 2 tablets oral every 8 hours, this was listed as an as needed medication. Scheduling this med will help with the pain. -Apply warm packs to the rib region as needed for pain. -Please consider getting some assistance for patient in the future as she has been seen for multiple falls in the ER and her safety at home is getting to be a concern. -Keep your follow up appts with Millicent Howard CNP and also discuss further pain meds refills with your PCP. -Return as needed to the ER Sepsis Event Note (ED) - Evaluation Sepsis Screening Result: No Definite Risk - Focused Exam Vital Signs: Vital Signs Temp Pulse Resp BP Pulse Ox 04/29/21 06:14 62 20 184/59 H 94 L 04/29/21 05:15 36.3 C 59 L 24 H 215/66 H 97 - Problem List & Annotations (1) Ribs, multiple fractures SNOMED Code(s): 9277891 Code(s): S22.49XA - MULTIPLE FRACTURES OF RIBS, UNSP SIDE, INIT FOR CLOS FX Status: Acute Current Visit: Yes Annotation/Comment:: Xray shows multiple rib fractures. Will ahve pt schedule her Tylenol Arthrits rather than use it prn. Also added Tramadol for prn use. Apply heat. Supportive cares. Qualifiers: Encounter type: initial encounter Fracture type: closed Laterality: left Qualified Code(s): S22.42XA - Multiple fractures of ribs, left side, initial encounter for closed fracture (2) Fall at home SNOMED Code(s): 16315348 Code(s): W19.XXXA - UNSPECIFIED FALL, INITIAL ENCOUNTER; Y92.009 - UNSP PLACE IN UNSP NON-INSTITUT (PRIVATE) RESIDENCE PLACE Status: Acute Current Visit: No Annotation/Comment:: -Note history of frequent falls at home and multiple ER visits. DISTRIBUTION FIELD ENGINEER voiced concern with patient and she son regarding her safety at home and need for more help. She reports using a walker. Qualifiers: Encounter type: initial encounter Qualified Code(s): W19.XXXA - Unspecified fall, initial encounter; Y92.009 - Unspecified place in unspecified non- institutional (private) residence as the place of occurrence of the external cause (3) S/P total hip arthroplasty SNOMED Code(s): 480806711432, 588596565764 Code(s): Z96.649 - PRESENCE OF UNSPECIFIED ARTIFICIAL HIP JOINT Status: Acute Priority: High Current Visit: No Onset Date: 09/16/20 Annotation/Comment:: XR of hip negative today for any acute findings Qualifiers: Laterality: left Qualified Code(s): Z96.642 - Presence of left artificial hip joint - Problem List Review Problem List Initiated/Reviewed/Updated: Yes - My Orders Last 24 Hours: My Active Orders 04/29/21 05:17 Hip Min 2V or 3V w Pelvis Lt [CR] Stat 04/29/21 05:37 Abdomen 1V Flat [CR] Stat Chest 1V Frontal [CR] Stat Ribs 2V wo Chest Lt [CR] Stat - Assessment/Plan Last 24 Hours: My Active Orders 04/29/21 05:17 Hip Min 2V or 3V w Pelvis Lt [CR] Stat 04/29/21 05:37 Abdomen 1V Flat [CR] Stat Chest 1V Frontal [CR] Stat Ribs 2V wo Chest Lt [CR] Stat Plan: See above
[2021-04-29 06:16] VITALS: PULSE 62
[2021-04-29] MEDS ORDERED: Ondansetron 4 MG Tab.DIS PO ONE (06:25)
[2021-04-29 06:59] VITALS: BP 185/51
== END 2021-04-29 07:25 | disposition home or self-care (01) ==
LOC: LL.ED 05:08
DX: S22.42XA Multiple fractures of ribs, left side, initial encounter for closed fracture (principal); I25.10 Atherosclerotic heart disease of native coronary artery without angina pectoris; I10 Essential (primary) hypertension; K21.9 Gastro-esophageal reflux disease without esophagitis; E11.9 Type 2 diabetes mellitus without complications; F03.90 Unspecified dementia, unspecified severity, without behavioral disturbance, psychotic disturbance, mood disturbance, and anxiety; Z79.899 Other long term (current) drug therapy; Z88.8 Allergy status to other drugs, medicaments and biological substances; Z79.4 Long term (current) use of insulin; W19.XXXA Unspecified fall, initial encounter
CPT/HCPCS: 71045; 71100-LT; 74018; 99283; 99283-25; A9270-GY